=== PATIENT | male | born 1935 | race Caucasian/White ===

== ENCOUNTER 2019-11-10 12:39 | Outpatient (CLI) | payer MEDICARE, SELFPAY ==
--- NOTE | 2019-11-10 | ECHO_ITS ---
Patient Info Name: Esdras Gu Age: 84 years : 1935 Gender: Male Ht: 74 in Wt: 170 lbs BSA: 2.00 m2 HR: 63 bpm BP: 157 / 76 mmHg Technical Quality: Fair Exam Date: 11/10/2019 1:15 PM Exam Location: [facility] Patient Status: Outpatient Admit Date: 11/10/2019 Staff Ordering Physician: Dave Tinajero MD Hospital Security Officer: Marine Ly RDCS Attending Provider: Dave Tinajero MD Referring Physician: Lior GAMING; Exam Type: CA echo doppler color flow Study Info Indications R01.1 - Cardiac murmur, unspecified Complete two-dimensional, color flow and Doppler transthoracic echocardiogram is performed. Summary 1. Left ventricular chamber dimension is normal. 2. Left ventricular systolic function is normal, estimated at 60-65%. 3. There is mildly increased left ventricular wall thickness. 4. The left ventricular diastolic function is grade I diastolic dysfunction. 5. E/e' 10 is mildly elevated. 6. Left atrial chamber dimension is mildly enlarged. 7. Right atrial chamber dimension is mildly enlarged. 8. There is moderate aortic valve sclerosis. 9. There is mild aortic valve regurgitation. 10. The mitral valve has moderately calcified annulus and mild posterior prolapse. 11. There is mild mitral valve regurgitation. 12. There is mild to moderate tricuspid valve regurgitation. 13. No pulmonary hypertension, estimated pulmonary arterial systolic pressure is 33 mmHg. 14. There is trace pulmonic regurgitation. Left Ventricle E/e' 10 is mildly elevated. Left ventricular chamber dimension is normal. Left ventricular systolic function is normal, estimated at 60-65%. There is mildly increased left ventricular wall thickness. The left ventricular diastolic function is grade I diastolic dysfunction. Right Ventricle Right ventricular chamber dimension is normal. Right ventricular systolic function is normal. Left Atria Left atrial chamber dimension is mildly enlarged. Right Atria Right atrial chamber dimension is mildly enlarged. Aortic Valve The aortic valve is trileaflet. There is moderate aortic valve sclerosis. There is no aortic valve stenosis. There is mild aortic valve regurgitation. Pulmonic Valve There is trace pulmonic regurgitation. Mitral Valve The mitral valve has moderately calcified annulus and mild posterior prolapse. There is no mitral valve stenosis. There is mild mitral valve regurgitation. Tricuspid Valve There is mild to moderate tricuspid valve regurgitation. No pulmonary hypertension, estimated pulmonary arterial systolic pressure is 33 mmHg. Pericardium/Pleural There is no pericardial effusion. Inferior Vena Cava Normal inferior vena cava with >50% collapse upon inspiration consistent with normal right atrial pressure, 5 mmHg. Aorta The aortic root size at the sinus of Valsalva is normal. Left Ventricular Outflow Tract Name Value Normal LVOT 2D LVOT Diameter 2.1 cm LVOT Doppler LVOT Peak Gradient 3 mmHg LVOT Mean Gradient 2 mmHg LVOT VTI 21 cm
== END 2019-11-10 12:40 | disposition home or self-care (01) ==
PROVIDERS: PCP Family Medicine; Visit Provider Family Medicine
DX: R01.1 Cardiac murmur, unspecified (principal); I51.7 Cardiomegaly
CPT/HCPCS: 93306

== ENCOUNTER 2021-04-23 14:45 | Observation (INO) | payer MEDICARE, SELFPAY ==
[2021-04-23] VITALS (17 sets, daily range): BP systolic 74–164; BP diastolic 35–87; PULSE 52–83; RESP 14–21; TEMP 36.6–36.8; O2SAT 93–99; BMI 24.7
--- NOTE | ~2021-04-23 | XR_ITS ---
EXAMINATION: XR foot RT 2V INDICATION: Nonhealing wound of the distal first metatarsal TECHNIQUE: Two views of the right foot are obtained. COMPARISON: None available FINDINGS: There is soft tissue swelling of the first toe. There is diffuse osteopenia. There appears to be a plantar soft tissue ulceration near the distal metatarsals on the lateral view. No definite u nderlying osseous abnormality is identified although there is limited by osteopenia. 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 IMPRESSION: 1. Soft tissue swelling of the first toe. Sensitivity for underlying osseous abnormality is limited b y diffuse osteopenia. Reviewed, dictated and finalized at location A. IMPRESSION: 1. Soft tissue swelling of the first toe. Sensitivity for underlying osseous ab normality is limited by diffuse osteopenia.
--- NOTE | ~2021-04-23 | XR_ITS ---
EXAMINATION: XR chest 1V portable INDICATION: Transient alteration of awareness TECHNIQUE: Portable AP chest at 1536 hours COMPARISON: 10/15/2010 FINDINGS: The lungs are free of acute opacities. There is no pleural effusion or pneumothorax. The ca rdiomediastinal silhouette is normal. There is mild osteoarthritis of the shoulders. IMPRESSION: 1. No acute cardiopulmonary abnormality. Reviewed, dictated and finalized at location A.
--- NOTE | ~2021-04-23 | US_ITS ---
EXAMINATION: US carotid duplex BI DATE: 04/24/2021 11:42 INDICATION: Syncope. Carotid bruit. TECHNIQUE: Grayscale, color Doppler, and pulsed Doppler images of the cervical carotid arteries were obtained. The degree of vessel stenosis is placed in one of the following categories: normal, <50%, 5 0-69%, >=70% but less than near-occlusion, near-occlusion, or total occlusion. Note that percent sten osis relative to normal distal artery lumen diameter is indirectly measured from velocity measurement s as described by Gilberto, et al. Radiology 2003; 229:340-346. Notes: Normal: Peak systolic velocity <125 centimeters/sec and no plaque <50%. Peak systolic velocity <125 ( EDV <40; ICA/CCA PSV ratio <2.0; used these factors only a tandem lesions or low cardiac output or co ntralateral disease) 50-69 %: PSV 125-230 (EDV 40-100; ratio 2-4) >= 70% but less than near occlusion: PSV greater than 230 (EDV > 100; ratio> 4.0) Near Occlusion: PSV that is variable; markedly narrowed lumen Occlusion: Absent flow on color/spectral Doppler and no lumen on weber scale. COMPARISON: None. FINDINGS: RIGHT: The right common carotid artery (CCA) peak systolic velocity (PSV) is 36 cm/s. The right internal car otid artery (ICA) PSV is 236 cm/s. The right ICA end-diastolic velocity (EDV) is 29 cm/s. The right I CA/CCA PSV ratio is 6.5. The external carotid artery (ECA) PSV is 35 cm/s. There is antegrade flow in the right vertebral artery. LEFT: The left CCA PSV is 88 cm/s. The left ICA PSV is 164 cm/s. The left ICA EDV is 19 cm/s. The left ICA/ CCA PSV ratio is 1.9. The ECA PSV is 145 cm/s. There is antegrade flow in the left vertebral artery. IMPRESSION: 1. Greater than or equal to 70% stenosis in the right internal carotid artery by sonographic criteria . 2. 50-69% stenosis in the left internal carotid artery by sonographic criteria. Reviewed, dictated and finalized at location B. IMPRESSION: 1. Greater than or equal to 70% stenosis in the right internal carotid artery b y sonographic criteria. 2. 50-69% stenosis in the left internal carotid artery by sonographic criteria.
--- NOTE | 2021-04-23 14:48 | ECG_ITS ---
Measurements Intervals [place] Rate: 64 P: 25 TX: 216 QRS: 47 QRSD: 97 T: 28 QT: 413 QTc: 428 Interpretive Statements SINUS OR ECTOPIC ATRIAL RHYTHM EARLY PRECORDIAL R/S TRANSITION BORDERLINE ST ABNORMALITY- ANTEROLATERAL LEADS BORDERLINE ECG Electronically Signed On 04-23-2021 19:56:23 CDT by Fidel Muhammad D.O.
[2021-04-23 15:18] LABS: Basophils Absolute Auto 0.1 K/mm3 (0.0-0.1); Basophils Percent Auto 0.7 % (0.2-1.2); Eosinophils Absolute Auto 0.1 K/mm3 (0-0.3); Eosinophils Percent Auto 0.9 % (0-4.4); Hematocrit 41.6 % (42.0-52.0); Hemoglobin 14.3 g/dL (14.0-18.0); Immature Granulocyte Absolute 0.03 K/mm3 (0.00-0.031); Immature Granulocyte Percent A 0.4 % (0-0.5); Lymphocytes Absolute Auto 1.92 K/mm3 (0.9-3.2); Lymphocytes Percent Auto 27.4 % (18.3-44.2); Mean Corpuscular HGB Conc 34.4 g/dl (32-36); Mean Corpuscular Hemoglobin 34.1 pg (26-34); Mean Corpuscular Volume 99.3 fl (80-100); Mean Platelet Volume 10.3 fl (7.4-10.4); Monocytes Absolute Auto 0.5 K/mm3 (0.1-0.6); Monocytes Percent Auto 7.6 % (2.6-8.5); Neutrophils Absolute Auto 4.4 K/mm3 (1.3-6.7); Platelet Count Result 180 k/mm3 (150-375); Red Blood Count 4.19 M/mm3 (4.6-6.20); Red Cell Distribution Width 12.6 % (11.5-14.5)
[2021-04-23] MEDS: SODIUM CHLORIDE 0.9% IV 1,000 ML 999 ML IV CONT (15:20)
[2021-04-23 15:28] LABS: Anion Gap 13 mmol/L (8-16); Blood Urea Nitrogen 31 mg/dL (9-20); Calcium 9.8 mg/dL (8.4-10.2); Carbon Dioxide 18 mmol/L (22-30); Chloride 109 mmol/L (98-107); Estimated CRCL calculation 43 ml/min; Estimated Glomerular Filt Rate 57; Glucose 147 mg/dL (65-110); Potassium 4.6 mmol/L (3.4-5.0); Sodium 140 mmol/L (137-145)
[2021-04-23 16:00] LABS: Ethanol < 10 mg/dL (<10)
--- NOTE | 2021-04-23 16:09 | PC.NURSE ---
Pt states that he went shopping and started to feel like he was going to pass out, he states that he was able to sit down before he passed out, pt states that he feels like he will pass out often but it usually resolves after sitting for 10-15 mins,pt also presents with dequan size old wound on top of right foot, A&Ox4, denies pain at this time
[2021-04-23 16:10] LABS: Add Urine Microscopic? YES; Appearance Urine Cloudy (Clear); Bacteria Urine Trace /hpf; Bilirubin Urine Negative (Negative); Blood Urine Negative (Negative); Color Urine Yellow (Yellow); Glucose Urine UA Negative (Negative); Ketones Urine Negative (Negative); Leukocyte Esterase Ur Negative LEU/UL (Negative); Mucus Urine Few /lpf; Nitrate Urine Negative (Negative); Protein Urine 1+ mg/dL (Negative); Specific Grav Ur 1.021 (1.001-1.035); Squamous Epithelial Cell Urine Rare /hpf (Few); WBC Urine 0-3 /hpf
[2021-04-23 16:19] LABS: INR 1.1; Prothrombin Time 14.2 Seconds (11.1-14.7)
[2021-04-23 16:20] LABS: Partial Thromboplastin Time 25.6 SECONDS (22.3-36.8)
[2021-04-23 16:20] LABS: Alanine Aminotransferase 18 U/L (4-50); Albumin Level 4.1 g/dL (3.5-5.1); Alkaline Phosphatase 58 U/L (38-126); Aspartate Amino Transferase 26 U/L (17-59); Bilirubin,Total 0.9 mg/dL (0.2-1.3); Lipase 117 U/L (23-300)
[2021-04-23 16:26] LABS: Amphetamine Screen Urine Negative (Negative); Barbiturate Screen Urine Negative (Negative); Benzodiazepines Screen Urine Negative (Negative); Cannabinoid Screen Urine Negative (Negative); Cocaine Screen Urine Negative (Negative); Methadone Screen Urine Negative (Negative); Opiate Screen Urine Negative (Negative); Phencyclidine Screen Urine Negative (Negative)
[2021-04-23 16:32] LABS: Troponin I < 0.012 ng/mL (0.000-0.034)
--- NOTE | 2021-04-23 18:00 | ED.GENADULT ---
HPI - General Adult General Chief complaint: Syncope <SUNNY Alvarez Last Filed: 04/23/21 18:06> Stated complaint: syncope <SUNNY Alvarez Last Filed: 04/23/21 18:06> Time Seen by Provider: 04/23/21 15:18 <SUNNY Alvarez Last Filed: 04/23/21 18:06> Source: patient, family, RN notes reviewed and old records reviewed <SUNNY Alvarez Last Filed: 04/23/21 18:06> Mode of arrival: ambulatory <SUNNY Alvarez Last Filed: 04/23/21 18:06> Limitations: no limitations <SUNNY Alvarez Last Filed: 04/23/21 18:06> History of Present Illness HPI narrative: Patient is an 86-year-old male who presents status post syncope patient was out in the backyard working when he sustained syncope he notes he has had near syncope with exertion patient has not been seen for this complaint on arrival to emergency department he is nondistressed resting comfortably he felt very weak initially but denied any recent illness or injuries or trauma related to the syncope presents with family who he lives with <SUNNY Alvarez Last Filed: 04/23/21 18:06> Related Data Home medications: Home Medications Medication Instructions Recorded Confirmed aspirin 325 mg PO DAILY 04/23/21 04/23/21 lisinopril 20 mg PO HS 04/23/21 04/23/21 metoprolol tartrate 12.5 mg PO Q12H 04/23/21 04/23/21 rosuvastatin 20 mg PO HS 04/23/21 04/23/21 <SUNNY Alvarez Last Filed: 04/23/21 18:06> Allergies/adverse reactions: Allergies Allergy/AdvReac Type Severity Reaction Status Date / Time No Known Allergies Allergy Mild Unverified 12/16/04 13:20 <SUNNY Alvarez Last Filed: 04/23/21 18:06> Review of Systems Review of Systems: All systems reviewed & are unremarkable except as noted in HPI and below <SUNNY Alvarez Last Filed: 04/23/21 18:06> [facility] Past Medical History Medical History: Medical History (Updated 04/24/21 @ 17:28 by Aubree Carrasco MD) Atherosclerosis of both carotid arteries Carotid artery disease Coronary artery disease 2 CO and 2 stents placed about [address] Vee at [facility] Hyperlipidemia Hypertension Nonrheumatic mitral valve regurgitation Skin cancer, basal cell <Jf Boss PA-C - Last Filed: 04/23/21 18:06> Surgical History Surgical History: Surgical History (Updated 04/23/21 @ 23:57 by Dori Oakley PA-C) History of basal cell carcinoma excision History of bilateral hip replacements Left: May 2001. Right: July 2001. History of heart artery stent X2 History of orthopedic surgery Right foot reconstruction around 1969. <Jf Boss PA-C - Last Filed: 04/23/21 18:06> Family History Family History: Family History Other Heart disease Hypertension <Jf Boss PA-C - Last Filed: 04/23/21 18:06> Social History Social History: Social History (Updated 04/24/21 @ 17:18 by Aubree Carrasco MD) Social History: Surrogate decision maker: Janeth Christianson, daughter. Code status: Full code. 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 Smoking packs per day: 5 Smoking cigarettes per day: 100.0 Years smoked: 15 Smoking pack-years: 75.00 Smoking status: Former smoker Tobacco type: cigarettes Additional smoking assessment comments: Quit smoking at age 26. Alcohol intake: never Substance use: never Additional living arrangements comments: The patient lives with his daughter and son-in-law in [place]. Occupation/Education: retired <Jf Boss PA-C - Last Filed: 04/23/21 18:06> Exam Narrative: GENERAL: Well-appearing, well-nourished, and in no acute distress. HEAD: Normocephalic, atraumatic. EYES: PERRLA and EOMI. ENT: Nares clear, no rhinorrhea or epistaxis. Mucous membranes moist. NECK: Supple. No adenopathy or
[2021-04-23 18:34] LABS: Troponin I < 0.012 ng/mL (0.000-0.034)
--- NOTE | 2021-04-23 19:30 | PM.IMHP ---
H&P: HPI History of Present Illness Date/Time: 04/23/21 19:30 Chief Complaint: Syncope. Narrative: This is a very pleasant 86-year-old male with coronary artery disease and history of stents, hypertension, and hyperlipidemia presented to the emergency department earlier today via private vehicle for evaluation after a syncopal episode. The patient is quite active and he was helping his daughter and son-in-law take out a tree and chop wood earlier today. He estimates that he was working for a couple of hours before he began feeling lightheaded and dizzy. He went to sit down at which time his vision became blurry and he lost consciousness briefly at that time. After a few minutes he was feeling okay however his family members thought it would be best for him to come in for evaluation. At the time my evaluation he reports feeling just fine and he has no specific complaints. He does admit that similar symptoms have happened in the past with exertion, and he typically goes to sit in his truck to cool off for 5 to 10 minutes and his symptoms resolve. On arrival to the emergency department his blood pressure was 74/35 but it has improved nicely with IV fluid rehydration. He denies exertional chest pain, pleuritic pain, palpitations, and shortness of breath. He has not had any near syncopal or syncopal episodes at any other times aside from when exerting himself. He has not had any recent weight changes or any changes to his medications. He has been eating and drinking as per usual. Review of Systems Review of Systems: Twelve systems were reviewed. Patient previously told of mild carotid artery disease several years ago, no follow-up since that time. Denies claudication. No fever, chills, or sweats. He denies recent cold and flu symptoms. No nausea, vomiting, or diarrhea. No dysuria. The patient does report mild neuropathy like symptoms in his fingers and toes for several years. Several weeks ago he hit his right forefoot with an axe and developed a wound there which did drain for a couple of days but is improving. No redness warmth or swelling at the site. Except as documented, all other systems were reviewed and are negative. [facility] Past Medical History Medical History (Updated 04/24/21 @ 00:04 by Dori Oakley PA-C) Carotid artery disease Coronary artery disease Hyperlipidemia Hypertension Skin cancer, basal cell Surgical History Surgical History (Updated 04/23/21 @ 23:57 by Dori Oakley PA-C) History of basal cell carcinoma excision History of bilateral hip replacements Left: May 2001. Right: July 2001. History of heart artery stent X2 History of orthopedic surgery Right foot reconstruction around 1969. Family History Family History (Updated 04/23/21 @ 23:59 by Dori Oakley PA-C) Other Heart disease Hypertension Social History Social History (Updated 04/24/21 @ 00:00 by Dori Oakley PA-C) Social History: Surrogate decision maker: Janeth Christianson, daughter. Code status: Full code. Smoking packs per day: 5 Smoking cigarettes per day: 100.0 Years smoked: 15 Smoking pack-years: 75.00 Smoking status: Former smoker Tobacco type: cigarettes Additional smoking assessment comments: Quit smoking at age 26. Alcohol intake: never Substance use: never Additional living arrangements comments: The patient lives with his daughter and son-in-law in [place]. Occupation/Education: retired [employer] Home Medications and Allergies Home Medications Medication Instructions Recorded Confirmed Type aspirin 325 mg PO DAILY 04/23/21 04/23/21 History lisinopril 20 mg PO HS 04/23/21 04/23/21 History metoprolol tartrate 12.5 mg PO Q12H 04/23/21 04/23/21 History rosuvastatin 20 mg PO HS 04/23/21 04/23/21 History Allergies Allergy/AdvReac Type Severity Reaction Status Date / Time No Known Allergies Allergy Mild Unverified 12/16/04 13:20 Vital Signs Vital Signs - 24 hr 04/23/21 1
--- NOTE | 2021-04-23 20:12 | PC.NURSE ---
Report called at 1943. RN on floor took report but stated the room is being cleaned. Called again at 2010 and the floor states the room is still being cleaned.
--- NOTE | 2021-04-23 20:56 | ADMGEN ---
This patient, Esdras Gu, was admitted to Medical Room 256-. Patient/family oriented to hospital policies and general routines including ID bracelet, bed and alarms, visiting hours, pain management, procedures, bathroom and other care routines, personal items, smoking policy, room service/diet, and visiting hours. Information on how to activate the Rapid Response Team has been discussed. Patient/Family are encouraged to report perceived risks to care and to ask questions if they do not understand what they are told or what they should do.
[2021-04-23 21:44] LABS: Troponin I < 0.012 ng/mL (0.000-0.034)
[2021-04-23] MEDS: LACTATED RINGERS 1,000 ML 75 ML IV CONT (21:55)
[2021-04-23] MEDS: FAMOTIDINE 20 MG/2 ML VIAL IV PUSH (22:52)
[2021-04-24] VITALS (17 sets, daily range): BP systolic 130–171; BP diastolic 47–72; PULSE 48–70; RESP 16–18; TEMP 36.5–36.8; O2SAT 96–97
--- NOTE | 2021-04-24 00:07 | ECHO_ITS ---
Patient Info Name: Esdras Gu Age: 86 years : 1935 Gender: Male Ht: 72 in Wt: 182 lbs BSA: 2.05 m2 HR: 68 bpm BP: 146 / 60 mmHg Technical Quality: Fair Exam Date: 04/24/2021 10:06 AM Exam Location: [facility] Pulmonary Exam Room: 256 Patient Status: Inpatient Admit Date: 04/23/2021 Staff Ordering Physician: Dori Oakley PA-C Sales Enablement Consultant: Marine Ly RDCS Attending Provider: Catalina Layne MD Referring Physician: Cele BELTRE; Exam Type: CA echo doppler color flow Study Info Indications - exertional syncope cad Complete two-dimensional, color flow and Doppler transthoracic echocardiogram is performed. Summary 1. Complete two-dimensional, color flow and Doppler transthoracic echocardiogram is performed. 2. Left ventricular systolic function is normal, estimated at 60-65%. 3. The left ventricular diastolic function is grade II diastolic dysfunction. 4. There is mild aortic valve calcification. 5. There is mild aortic valve regurgitation. 6. There is no aortic valve stenosis. 7. There is mild mitral valve regurgitation. Mild anterior mitral leaflet prolapse. 8. The mitral valve annulus is mildly calcified. 9. There is mild tricuspid valve regurgitation. 10. No pulmonary hypertension, estimated pulmonary arterial systolic pressure is 28 mmHg. Left Ventricle Left ventricular chamber dimension is normal. Left ventricular systolic function is normal, estimated at 60-65%. There is no increased left ventricular wall thickness. Left ventricular septal wall motion is normal. The left ventricular diastolic function is grade II diastolic dysfunction. Right Ventricle Right ventricular chamber dimension is normal. Right ventricular systolic function is normal. Left Atria Left atrial chamber dimension is normal. Right Atria Right atrial chamber dimension is normal. Atrial Septum Intact interatrial septum visualized by color flow imaging. Aortic Valve The aortic valve is trileaflet. There is no aortic valve sclerosis. There is no aortic valve stenosis. There is mild aortic valve regurgitation. There is mild aortic valve calcification. Pulmonic Valve The pulmonic valve is normal. There is no pulmonic valve stenosis. There is no pulmonic regurgitation. Mitral Valve The mitral valve has anterior prolapse. There is no mitral valve stenosis. There is mild mitral valve regurgitation. Mild anterior mitral leaflet prolapse. The mitral valve annulus is mildly calcified. Tricuspid Valve The tricuspid valve leaflets are normal. There is no significant tricuspid valve stenosis. There is mild tricuspid valve regurgitation. No pulmonary hypertension, estimated pulmonary arterial systolic pressure is 28 mmHg. Pericardium/Pleural The pericardium appears normal. There is no pericardial effusion. Inferior Vena Cava Normal inferior vena cava with >50% collapse upon inspiration consistent with normal right atrial pressure, 5 mmHg. Aorta The aortic root size at the sinus of Valsalva is normal. The prox ascending aorta size is normal. Left Ventricular Outflow Tract Name Value Normal LVOT 2D LVOT Diameter 2.1 cm
[2021-04-24 05:38] LABS: Basophils Percent Auto 0.5 % (0.2-1.2); Eosinophils Absolute Auto 0.1 K/mm3 (0-0.3); Eosinophils Percent Auto 1.4 % (0-4.4); Hemoglobin 12.7 g/dL (14.0-18.0); Immature Granulocyte Absolute 0.02 K/mm3 (0.00-0.031); Immature Granulocyte Percent A 0.3 % (0-0.5); Immature Platelet Fraction Pct 3.9 % (0.9-11.2); Lymphocytes Percent Auto 31.3 % (18.3-44.2); Mean Corpuscular HGB Conc 33.4 g/dl (32-36); Mean Corpuscular Volume 101.9 fl (80-100); Monocytes Absolute Auto 0.7 K/mm3 (0.1-0.6); Monocytes Percent Auto 10.6 % (2.6-8.5); Neutrophils Absolute Auto 3.6 K/mm3 (1.3-6.7); Neutrophils Percent Auto 55.9 % (45.5-73.1); Platelet Count Result 161 k/mm3 (150-375); Red Blood Count 3.73 M/mm3 (4.6-6.20); Red Cell Distribution Width 12.4 % (11.5-14.5); White Blood Count 6.4 K/mm3 (4.5-10.0)
[2021-04-24 05:47] LABS: Anion Gap 5 mmol/L (8-16); Blood Urea Nitrogen 24 mg/dL (9-20); Carbon Dioxide 27 mmol/L (22-30); Chloride 110 mmol/L (98-107); Estimated CRCL calculation 51 ml/min; Estimated Glomerular Filt Rate > 60; Glucose 98 mg/dL (65-110); Potassium 4.4 mmol/L (3.4-5.0); Sodium 142 mmol/L (137-145)
[2021-04-24] MEDS: SILVERGEL (ELTA) 45 ML 1 APPLIC TOPICAL (09:40)
[2021-04-24] MEDS: METOPROLOL TARTRATE 12.5 MG TABLET PO ×2 (09:41→20:43)
[2021-04-24] MEDS: ASPIRIN 325 MG TABLET PO (09:41)
--- NOTE | 2021-04-24 11:18 | ECG_ITS ---
Measurements Intervals [place] Rate: 52 P: MD: 0 QRS: 36 QRSD: 95 T: 35 QT: 437 QTc: 408 Interpretive Statements SINUS OR ECTOPIC ATRIAL BRADYCARDIA WITH SINUS ARRHYTHMIA WITH FIRST DEGREE AV BLOCK EARLY PRECORDIAL R/S TRANSITION BASELINE WANDER- I, II, V4-V6 ABNORMAL ECG Electronically Signed On 04-24-2021 13:05:00 CDT by Fidel Muhammad D.O.
--- NOTE | 2021-04-24 14:42 | PM.IMPN ---
Progress Note: A&P Assessment and Plan (1) Syncope: Code(s): R55 - Syncope and collapse Status: Acute (2) Hypotension: Code(s): I95.9 - Hypotension, unspecified Status: Acute (3) Wound of right foot: Code(s): S91.301A - Unspecified open wound, right foot, initial encounter Status: Acute (4) Hypertension: Code(s): I10 - Essential (primary) hypertension Status: Acute (5) Hyperlipidemia: Code(s): E78.5 - Hyperlipidemia, unspecified Status: Acute (6) Coronary artery disease: Code(s): I25.10 - Atherosclerotic heart disease of [place] coronary artery without angina pectoris Status: Acute (7) Carotid artery disease: Code(s): I77.9 - Disorder of arteries and arterioles, unspecified Status: Inactive Additional Plan 04/23/21: The patient presented today after having a syncopal episode, found to be hypotensive on arrival. He may very well have been dehydrated from working outside for several hours though I am more concerned with his reported history of frequent near syncopal episodes with exertion. His blood pressures improved with just 1 L of IV fluids in the emergency department. He will be monitor on telemetry overnight to rule out cardiac dysrhythmia. Echocardiogram and carotid Doppler ultrasounds have been ordered for further evaluation. Orthostatic vital signs will be monitored Q shift. His antihypertensives will be reviewed and resumed as appropriate, with parameters. I will ask the wound nurse to see him in consultation for the right mid forefoot ulceration. 04/24/21: He was noticed to have atrial fibrillation on telemetry which was confirmed by a 12 lead EKG. Cardiology consult has been requested for the inputs. Echocardiogram showed ejection fraction of 60-65% with grade 2 diastolic dysfunction. No significant valvular stenosis noticed. Carotid Doppler showed greater than or equal to 70% stenosis in the right internal carotid artery. 50-69% stenosis in the left internal carotid artery. Continue aspirin and Crestor. Orthostatic vitals were repeated today and were negative. Metoprolol was resumed. Continue lisinopril if blood pressure requires it to be resumed. IV fluids have been stopped. Wound care consult has been obtained and their recommendations appreciated. It does not seem that his wound is infected. Possible discharge in the a.m. after cardiology evaluation. Subjective Date/time seen: 04/24/21 14:42 Wound care nurse evaluated the patient and put the recommendation. It does not look to be infected. Blood pressure readings are borderline elevated with systolic blood pressure in 140s and 150s. Currently lisinopril and metoprolol is on hold. He is feeling better and denied have any significant symptoms. He was noticed to have atrial fibrillation on telemetry which was confirmed by a 12 lead EKG. Cardiology consult has been requested. He was resuscitated with IV fluids with improvement in his blood pressure. Review of Systems Review of Systems: All systems reviewed & are unremarkable except as noted in HPI and below Exam Narrative: General: Awake and alert Respiratory: Lungs are clear to auscultation bilaterally. Cardiovascular: Regular rate and rhythm with S1-S2. Gastrointestinal: Abdomen is soft, nontender, and nondistended Skin: Warm and dry. There is approximately dime shaped, ulcerated wound on the right medial forefoot with red granular wound bed. No erythema, edema, warmth, or tenderness. Neurological: Awake and alert Psychiatric: Pleasant and cooperative with normal mood and affect. Objective Data Vital Signs Vital Signs: Vital Signs - 24 hr 04/23/21 14:52 04/23/21 15:49 04/23/21 16:00 Temperature 36.6 C Pulse Rate 72 64 64 Respiratory Rate 16 19 16 Blood Pressure 74/35 L Pulse Oximetry 98 95 04/23/21 16:02 04/23/21 16:15 04/23/21 16:16 Temperature Pulse Rate 63 62 63 Respiratory Rate 1
--- NOTE | 2021-04-24 16:44 | PM.CNCAR ---
Assessment and Plan Assessment and plan (1) Sinus arrhythmia: Code(s): I49.8 - Other specified cardiac arrhythmias Status: Acute Assessment and Plan: Telemetry was personally reviewed. Episodes of atrial fibrillation I believe are actual sinus arrhythmia. He has a first-degree AV block with very low voltage P waves which are hard to see especially if there is any artifact on the tracing. EKG is also reviewed, appear to have very low voltage P waves and I do not see actual atrial fibrillation. No further evaluation recommended. Okay for discharge today. (2) First degree AV block: Code(s): I44.0 - Atrioventricular block, first degree Status: Acute Assessment and Plan: First-degree AV block, APCs, and brief pauses on telemetry monitoring. (3) Syncope: Code(s): R55 - Syncope and collapse Status: Acute Assessment and Plan: Long history of exertional lightheadedness, admitted with syncope, with a documented blood pressure of 74 on admission. Suspect that he was dehydrated and vasodilated, needs to increase fluid intake and rest more frequently with activity. Cannot exclude an ischemic cause, such as exercise-induced bradycardia ( ventricular arrhythmia less likely) or ischemia leading to poor cardiac output and resultant low BP. However troponins were negative and his EKG did not show any ischemic changes. Consider OPT stress test. (4) Coronary artery disease: Code(s): I25.10 - Atherosclerotic heart disease of [place] coronary artery without angina pectoris Status: Acute Assessment and Plan: Remote history of mi and stents. Taking aspirin and statin (5) Nonrheumatic mitral valve regurgitation: Code(s): I34.0 - Nonrheumatic mitral (valve) insufficiency Status: Acute Assessment and Plan: sounds like a mitral regurgitant murmur. No recent echos in EMR. Consider outpatient echo. (6) Atherosclerosis of both carotid arteries: Code(s): I65.23 - Occlusion and stenosis of bilateral carotid arteries Status: Acute Assessment and Plan: Bilateral carotid disease, continue aspirin statin. Consider further evaluation with a CTA. History of Present Illness History of Present Illness Consult date/time: 04/24/21 16:44 Consult reason: atrial fibrillation Reason For Visit: syncope Narrative: Esdras Gu is an 86-year-old male whom we were asked to see at the request of the hospitalist for our advice and opinion regarding his new onset of atrial fibrillation, in consultation. 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 He has been splitting wood over the past couple months and has had no problems with any chest discomfort or shortness of breath. All his life, however, when he over exerts he gets lightheaded and dizzy and needs to sit down to rest. Sometimes when he was younger he crumpled to the ground but he has learned to sit and rest. He has never had actual syncope before. however, he had to walk a long ways to get to where he could sit On some steps,and then apparently he was dizzy and had a syncopal episode. In the ER his blood pressure was 74/35. He was thought to be of mildly dehydrated (BUN was 31, now 24 ). He was incidentally found to have possible atrial fibrillation today. No history of any arrhythmias. He does have a history of a heart attack and [address] Vee at [facility] about 15 years ago. His had stress tests in the past with no abnormalities and has a history of a heart murmur from a leaky valve. Review of Systems Constitutional: Constitutional: Denies lethargy Eyes: Eyes: Reports no additional eye complaints ENT: Denies epistaxis Cardiovascular: Cardiovascular: Denies diaphoresis, Denies leg edema, Reports lightheadedness and Denies palpitations Respiratory: Respirat
[2021-04-24] MEDS: ROSUVASTATIN 10 MG TABLET 20 MG PO (20:43)
[2021-04-25] VITALS: PULSE 55
[2021-04-25 00:30] VITALS: BP 127/55; PULSE 96; RESP 14; TEMP 36.4; O2SAT 96
[2021-04-25 04:00] VITALS: PULSE 55
[2021-04-25 05:48] LABS: Magnesium 1.9 mg/dL (1.6-2.3)
[2021-04-25 05:55] VITALS: BP 114/84; PULSE 55; RESP 16; TEMP 36.5; O2SAT 98
--- NOTE | 2021-04-25 07:53 | PM.DS ---
DS: Admitting Diagnosis Discharge Date 04/25/21 Admitting Diagnosis Syncope hypotension dehydration chronic wound of the right foot hypertension hyperlipidemia CAD carotid artery stenosis DS: Discharge Diagnosis Discharge Diagnosis (1) Syncope: Code(s): R55 - Syncope and collapse Status: Acute Assessment and Plan: likely secondary to dehydration and transient hypotension associated with it. He was hydrated with IV fluids with improvement in his symptoms. He was initially orthostatic hypotensive but that has resolved now with IV fluid resuscitation. (2) Hypotension: Code(s): I95.9 - Hypotension, unspecified Status: Acute Assessment and Plan: Resolved with IV fluid resuscitation. (3) Wound of right foot: Code(s): S91.301A - Unspecified open wound, right foot, initial encounter Status: Acute Assessment and Plan: He was seen by wound care nurse and provided local care. It does not seem to be infected. (4) Hypertension: Code(s): I10 - Essential (primary) hypertension Status: Acute Assessment and Plan: He was continued on his metoprolol. His lisinopril was put on hold but multiple blood pressure readings were found to be elevated and he is being restarted back on lisinopril at the time of discharge. (5) Hyperlipidemia: Code(s): E78.5 - Hyperlipidemia, unspecified Status: Acute Assessment and Plan: Continue rosuvastatin. (6) Coronary artery disease: Code(s): I25.10 - Atherosclerotic heart disease of [place] coronary artery without angina pectoris Status: Acute Assessment and Plan: Continue metoprolol, lisinopril, aspirin and Crestor Echo was performed which showed ejection fraction of 60-65%. He has grade 2 diastolic dysfunction. Mild aortic valve and mitral valve regurgitation seen. He was seen by cardiology service for the concern for possible atrial fibrillation which was suspected on telemetry as well as 12 lead EKG. He does not seem to have atrial fibrillation and has first-degree AV block with very low voltage P-waves. Telemetry showed first-degree AV block, APCs and brief pauses. He will probably need to have an outpatient stress test. He was encouraged to see his primary care physician and suppression crew leader as an outpatient to arrange an outpatient stress test. (7) Carotid artery disease: Code(s): I77.9 - Disorder of arteries and arterioles, unspecified Status: Inactive Assessment and Plan: Carotid Doppler was performed which showed greater than or equal to 70% stenosis in the right internal carotid artery. 50-69% stenosis in the left internal carotid artery seen as well. He will need outpatient evaluation by vascular surgeon. I encouraged him to get the referral from his primary care physician when he see him next. In the meantime he will be continued on aspirin, statin and metoprolol. 04/23/21: The patient presented today after having a syncopal episode, found to be hypotensive on arrival. He may very well have been dehydrated from working outside for several hours though I am more concerned with his reported history of frequent near syncopal episodes with exertion. His blood pressures improved with just 1 L of IV fluids in the emergency department. He will be monitor on telemetry overnight to rule out cardiac dysrhythmia. Echocardiogram and carotid Doppler ultrasounds have been ordered for further evaluation. Orthostatic vital signs will be monitored Q shift. His antihypertensives will be reviewed and resumed as appropriate, with parameters. I will ask the wound nurse to see him in consultation for the right mid forefoot ulceration. 04/24/21: He was noticed to have atrial fibrillation on telemetry which was confirmed by a 12 lead EKG. Cardiology consult has been requested for the inputs. Echocardiogram showed ejection fraction of 60
[2021-04-25 08:00] VITALS: PULSE 65
[2021-04-25 09:35] VITALS: PULSE 75
[2021-04-25] MEDS: METOPROLOL TARTRATE 12.5 MG TABLET PO (09:35)
[2021-04-25] MEDS: ASPIRIN 325 MG TABLET PO (09:36)
[2021-04-25] MEDS: SILVERGEL (ELTA) 45 ML 1 APPLIC TOPICAL (09:36)
[2021-04-25 13:48] LABS: Free T4 Free Thyroxine Reflex 0.85 ng/dL (0.78-2.19)
[2021-04-26 08:51] LABS: Total Triiodothyronine (T3) 1.26 NG/ML (0.97-1.69)
== END 2021-04-25 10:25 | disposition home or self-care (01) ==
LOC: ANHED 18:06 → ANH2MED 22:10 → ANH3MEDSUR 04-29 13:39
PROVIDERS: Emergency Medicine; Emergency Medicine Emergency Medical Services; Physician Assistant; Admitting Provider Internal Medicine; Emergency Provider General Practice; PCP Family Medicine; Visit Provider Internal Medicine Critical Care Medicine
DX: R55 Syncope and collapse (principal); S91.301D Unspecified open wound, right foot, subsequent encounter; I44.0 Atrioventricular block, first degree; I34.0 Nonrheumatic mitral (valve) insufficiency; I65.23 Occlusion and stenosis of bilateral carotid arteries; I49.8 Other specified cardiac arrhythmias; I25.10 Atherosclerotic heart disease of native coronary artery without angina pectoris; I10 Essential (primary) hypertension; E78.5 Hyperlipidemia, unspecified; Z95.5 Presence of coronary angioplasty implant and graft; Z87.891 Personal history of nicotine dependence
CPT/HCPCS: 36415; 71045; 73620; 80048; 80076; 80307; 81001; 83690; 83735; 84439; 84443; 84480; 84484; 85025; 85055; 85610; 85730; 93005; 93306; 93880; 96361; 96365; 96366; 96374; 96375; 99285; A9270; G0378; J7030; J7120

== ENCOUNTER 2024-07-23 08:15 | Emergency (ER) | payer MEDICARE, SELFPAY ==
[2024-07-23] VITALS (35 sets, daily range): BP systolic 90–147; BP diastolic 41–79; PULSE 48–71; RESP 13–30; TEMP 36.7–36.9; O2SAT 72–100
--- NOTE | ~2024-07-23 | CT_ITS ---
CLINICAL INDICATION: Periprosthetic fracture of the left hip after a fall. COMPARISON: None. TECHNIQUE: Computed tomography (CT) of the pelvis was performed without intravenous contrast. The dos e-length product was 484.64 mGy-cm. FINDINGS/OBSERVATIONS: Gastrointestinal tract: Fecal stasis within the pelvis. Appendix: The appendix is not definitively visualized. However, no pericecal inflammatory change is i dentified suggest the presence of acute appendicitis. Vasculature: Significant inflammatory change surrounding the left common iliac vein with dilatation j ust proximal to its transition to the left external iliac vein for which a thrombus is suspected. Densely calcified atherosclerotic disease is identified within the arterial system Lymph nodes: No pathologically enlarged or morphologically within the visualized retroperitoneum or p doretha. Pelvic structures:Significant fatty atrophy of the paraspinous musculature as well as the left psoas muscle and iliopsoas muscle within the pelvis. Body wall and musculoskeletal: Bilateral total hip prosthetic are detected. Comminuted fracture of the periprosthetic femur is identified extending cranially into the greater tr ochanter of the left femur. Given the streak metallic artifact, cannot completely exclude an accompanying acetabular fracture as well. IMPRESSION: Comminuted fracture of the periprosthetic left femur extending cranially into the greater trochanter. Findings within the left common iliac and left external iliac veins for which thrombus is suspected. Reviewed, dictated and finalized at location A. ONAL ENVIRONMENTAL MANAGER IMPRESSION: Comminuted fracture of the periprosthetic left femur extending cranially into t he greater trochanter. Findings within the left common iliac and left external iliac veins for which t hrombus is suspected.
--- NOTE | ~2024-07-23 | XR_ITS ---
CHEST RADIOGRAPH CLINICAL HISTORY: hip frac . COMPARISON: 04/23/2021 TECHNIQUE: Single portable view of the chest. FINDINGS The cardiomediastinal silhouette is unremarkable. The lungs are clear. Visualized osseous structures and soft tissues are unremarkable. IMPRESSION: No focal infiltrate or effusion. Reviewed, dictated and finalized at location A. CIENCY CLERK
--- NOTE | ~2024-07-23 | XR_ITS ---
HISTORY: pain LT HIPS PT FELL HX HIP REPLACEMENT COMPARISON: None TECHNIQUE: 2 views of the left hip along with an AP view of the pelvis FINDINGS: Left-sided periprosthetic fracture is identified along the femoral stem as well as within the greater trochanter. The right hip prosthetic and surrounding bone are unremarkable. Degenerative disease within the lower lumbar spine. Fecal stasis within the colon. Air within the rectum. Decreased mineralization. IMPRESSION: Acute periprosthetic fracture within the femoral component of the left hip Reviewed, dictated and finalized at location A. STANT PARALEGAL
--- NOTE | ~2024-07-23 | CT_ITS ---
History: Fall PROCEDURE: CT head without contrast. COMPARISON: None TECHNIQUE: Axial imaging of the head performed from the skull base to the vertex without IV contrast. Sagittal a nd coronal reformations obtained. DLP: 605 mGy-cm FINDINGS: The ventricles are dilated. The dilatation of the ventricles is proportional to the degree of sulcal prominence, not uncommon in the senescent brain. Decreased attenuation is identified within the periventricular white matter, likely secondary to micr ovascular ischemic disease, in a patient of this age. There is no mass, mass effect or midline shift. There is no abnormal extra-axial fluid collection or intracranial hemorrhage. Visualized paranasal sinuses are clear. The mastoid air cells are well aerated. No acute displaced fractures within the overlying cranium. Impression: No acute intracranial hemorrhage or suspicious mass effect. Reviewed, dictated and finalized at location A. MMASTER Impression: No acute intracranial hemorrhage or suspicious mass effect.
--- NOTE | 2024-07-23 08:32 | ECG_ITS ---
Test Date: 2024-07-23 09:19:55 Measurements Intervals [place] Rate: 57 P: 0 [place]: 0 QRS: 70 QRSD: 98 T: 41 QT: 434 QTc: 425 Interpretive Statements ATRIAL FIBRILLATION WITH SLOW VENTRICULAR RESPONSE NONSPECIFIC ST & T-WAVE ABNORMALITY ABNORMAL RHYTHM ECG No previous ECG available for comparison Electronically Signed On 07-23-2024 10:09:16 RADIAL DRILL OPERATOR FOR PLASTIC by Miles Pierce M.D.
--- NOTE | 2024-07-23 08:34 | ED_ITS ---
HPI - General Adult General Chief complaint: Fall Stated complaint: fall Time Seen by Provider: 07/23/24 08:16 History of Present Illness HPI narrative: 89-year-old male presents to the emergency department for evaluation for left hip pain. Patient was attempting to pull up his undergarments after using the restroom when he lost his balance and fell to his left striking the wall with his head and injuring his left hip. Patient does have history of bilateral hip replacements in 1999 and 2000. Related Data Home Medications ?Medication ?Instructions ?Recorded ?Confirmed ?Last Taken ?Type aspirin 325 mg tablet 325 mg PO DAILY 04/23/21 05/23/24 04/23/21 09:00 History vit C 250 mg-vit E 90 mg-zinc 40 1 tablet PO BID 05/18/23 05/23/24 Unknown History mg-copper 1 [id number] capsule (PreserVision AREDS-2) Allergies Allergy/AdvReac Type Severity Reaction Status Date / Time No Known Allergies Allergy Mild Verified 07/23/24 08:24 Review of Systems 2 Review of Systems: All systems reviewed & are unremarkable except as noted in HPI and below PMFSH Past Medical History Medical History Atherosclerosis of both carotid arteries Carotid artery disease Coronary artery disease 2 [place] and 2 stents placed about [address] Vee at [facility] First degree AV block Hyperlipidemia Hypertension Hypotension Nonrheumatic mitral valve regurgitation Old myocardial infarction Primary generalized (osteo)arthritis Surgical History Surgical History History of basal cell carcinoma excision History of bilateral hip replacements Left: May 2001. Right: July 2001. History of heart artery stent X2 History of orthopedic surgery Right foot reconstruction around 1969. Family History Family History Other Heart disease Hypertension Social History Social History Social History: Surrogate decision maker: Janeth Christianson, daughter. Code status: Full code. 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 Smoking packs per day: 5 Smoking cigarettes per day: 100.0 Years smoked: 15 Smoking pack-years: 75.00 Smoking status: Former smoker Tobacco type: cigarettes Additional smoking assessment comments: Quit smoking at age 26. Alcohol intake: never Substance use: never Lack of Transportation: No Lack of Food: Never True Current Housing: I Have Housing Concerned About Future Housing: No Difficulty Paying Gas/Electric Bills: No Difficulty Paying for Meds: No Currently Unemployed: No Education: High School Diploma/GED Difficulty w/ Childcare or Family Care: No Living arrangements: with family Additional living arrangements comments: The patient lives with his daughter and son-in-law in [place]. Occupation/Education: retired Gender identity (if verbalized by the patient): Male Sexual Orientation (if Verbalized by the Patient): Straight or Heterosexual Spiritual care concerns: No Exam 2 Narrative: APPEARANCE: Well appearing, no pain, no distress, well-nourished. HEAD: normocephalic, atraumatic. EYES: PERRLA/EOMI, conjunctivae clear. NOSE: Normal no drainage EARS:TMS clear with good light reflex. THROAT: Pharynx clear, no exudate. NECK: Supple. No adenopathy, no masses. RESPIRATORY: Airway patent, respirations nonlabored. Clear to auscultation bilaterally, no rales, rhonchi, wheezing. CARDIOVASCULAR: Regular rate and rhythm without murmurs rubs or gallops. ABDOMINAL: Soft, nontender, nondistended, normal bowel sounds MUSCULOSKELETAL: Decreased range of motion of left hip secondary to pain, neurovascularly intact. NEURO: Alert. Cranial nerves II through XII intact. Good gait. Good coordination SKIN: Warm, dry. Normal Color Course Vital Signs Vital signs: Vital Signs Temperature 98.1 F 07/23/24 08:16 Pulse Rate 70 07/23/24 08:16 Respiratory Rate 16 07/23/24 08:16 Blood Pressure 147/79 H 07/23/24 08:16 Pulse Oximetry 97 07/23/24 08:16 Oxygen Delivery Room Air 07/23/24 08:16 Temperature 98.5 F 07/23/24 13:01 Pulse Rate 62 07/23/24 13:01 Respiratory Rate 17 07/23/24 13:01 Blood Pressure 139/65 07/23/24 13:01 Pulse Oximetry 97 07/23/24 13:01 Oxygen Delivery Room Air 07/23/24 08:16 Medical Decision Making MDM Narrative Medical decision making narrative: 89-year-old male present to the emergency department for evaluation for head injury left hip pain. Hip x-ray did reveal a periprosthetic left femur fracture. Discussed case with orthopedics and they did not feel they were able to care for patient here. After discussion with the patient and family they preferred to go to [facility]. I discussed the case with [facility] transfer [facility]ins and patient was ultimately accepted as a trauma transfer to [facility]. Patient was well-appearing and stable at time of transfer. Patient was afebrile but does have a leukocytosis of 11.6 but a stable hemoglobin of 14.5. No acute abnormalities on the patient's CMP. Pelvis CT did confirm the comminuted periprosthetic femur fracture, head CT was negative for acute intracranial abnormality. Differential Diagnosis Differential Diagnosis: Hip fracture, pelvic fracture, subdural hematoma, subarachnoid hemorrhage, cervical spine fracture Vital Signs Vital Signs: Vital Signs Temperature 98.1 F 07/23/24 08:16 Pulse Rate 70 07/23/24 08:16 Respiratory Rate 16 07/23/24 08:16 Blood Pressure 147/79 H 07/23/24 08:16 Pulse Oximetry 97 07/23/24 08:16 Oxygen Delivery Room Air 07/23/24 08:16 Temperature 98.5 F 07/23/24 13:01 Pulse Rate 62 07/23/24 13:01 Respiratory Rate 17 07/23/24 13:01 Blood Pressure 139/65 07/23/24 13:01 Pulse Oximetry 97 07/23/24 13:01 Oxygen Delivery Room Air 07/23/24 08:16 Lab Data Lab results reviewed: Yes I reviewed the patient's lab results. 07/23/24 08:43 07/23/24 08:43 Labs: Lab Results 07/23/24 07/23/24 Range/Units 08:43 11:40 WBC 11.6 H (4.5-10.0) K/mm3 RBC 4.31 L (4.6-6.20) M/mm3 Hgb 14.5 (14.0-18.0) g/dL Hct 44.7 (42.0-52.0) % MCV 103.7 H (80-100) fl MCH 33.6 (26-34) pg MCHC 32.4 (32-36) g/dl RDW 13.5 (11.5-14.5) % Plt Count 130 L (150-375) k/mm3 MPV 11.2 H (7.4-10.4) fl Immature Gran % (Auto) 0.5 (0-0.5) % Neut % (Auto) 77.2 H (45.5-73.1) % Lymph % (Auto) 13.6 L (18.3-44.2) % Mccormick % (Auto) 7.2 (2.6-8.5) % Eos % (Auto) 1.2 (0-4.4) % Baso % (Auto) 0.3 (0.2-1.2) % Lymph # (Auto) 1.58 (0.9-3.2) K/mm3 Mccormick # (Auto) 0.8 H (0.1-0.6) K/mm3 Eos # (Auto) 0.1 (0-0.3) K/mm3 Baso # (Auto) 0.0 (0.0-0.1) K/mm3 Abs Immat Gran (auto) 0.06 H (0.00-0.031) K/mm3 Absolute Neuts (auto) 8.9 H (1.3-6.7) K/mm3 Absolute Nucleated RBC 0.000 (0.0-0.012) K/mm3 Nucleated RBC % 0.0 (0.0-0.2) % % Immature Plt Fraction 5.8 (0.9-11.2) % PT 15.1 H (11.1-14.7) Seconds INR 1.1 APTT 24.9 (22.3-36.8) Seconds Sodium 141 (137-145) mmol/L Potassium 4.4 (3.4-5.0) mmol/L Chloride 107 (98-107) mmol/L Carbon Dioxide 24 (22-30) mmol/L Anion Gap 10 (4-12) mmol/L BUN 26 H (9-20) mg/dL Creatinine 0.88 (0.7-1.3) mg/dL Estim Creat Clear Calc 55 ml/min Estimated GFR > 60 (59 - ) Glucose 120 H (65-110) mg/dL Calcium 9.9 (8.4-10.2) mg/dL Magnesium 1.8 (1.6-2.3) mg/dL Total Bilirubin 1.6 H (0.2-1.3) mg/dL AST 25 (17-59) U/L ALT 18 (6-50) U/L Alkaline Phosphatase 67 (38-126) U/L Troponin I 0.028 (0.000-0.034) ng/mL Total Protein 7.0 (6.3-8.2) g/dL Albumin 4.1 (3.5-5.1) g/dL TSH (Reflex) 10.300 H (0.465-4.68) uIU/mL Free T4 0.86 (0.78-2.19) ng/dL Total T3 1.34 (0.97-1.69) NG/ML Imaging Data Radiologist's impression: Impressions Head CT 07/23/24 09:11 Impression: No acute intracranial hemorrhage or suspicious mass effect. Chest X-Ray 07/23/24 09:16 IMPRESSION: No focal infiltrate or effusion. Hip/Pelvis X-Ray 07/23/24 09:17 IMPRESSION: Acute periprosthetic fracture within the femoral component of the left hip Pelvis CT 07/23/24 10:58 IMPRESSION: Comminuted fracture of the periprosthetic left femur extending cranially into the greater trochanter. Findings within the left common iliac and left external iliac veins for which thrombus is suspected. Discharge Plan Discharge Clinical Impression: Aundrea-prosthetic fracture around prosthetic hip Patient Disposition: Acute Care Hospital Condition: Serious Patient Language: Swedish Prescriptions: No Action PreserVision AREDS-2 250-90-40-1 mg capsule 1 tablet PO BID aspirin 325 mg Tablet 325 mg PO DAILY rosuvastatin 20 mg tablet 20 mg PO HS Qty: 90 1RF lisinopril 20 mg tablet 20 mg PO DAILY Qty: 90 1RF Follow-up/Referrals: Dave Tinajero MD [Primary Care Provider] -
[2024-07-23 08:53] LABS: Basophils Percent Auto 0.3 % (0.2-1.2); Eosinophils Absolute Auto 0.1 K/mm3 (0-0.3); Eosinophils Percent Auto 1.2 % (0-4.4); Hematocrit 44.7 % (42.0-52.0); Hemoglobin 14.5 g/dL (14.0-18.0); Immature Granulocyte Absolute 0.06 K/mm3 (0.00-0.031); Immature Granulocyte Percent A 0.5 % (0-0.5); Immature Platelet Fraction Pct 5.8 % (0.9-11.2); Lymphocytes Absolute Auto 1.58 K/mm3 (0.9-3.2); Lymphocytes Percent Auto 13.6 % (18.3-44.2); Mean Corpuscular HGB Conc 32.4 g/dl (32-36); Mean Corpuscular Hemoglobin 33.6 pg (26-34); Mean Corpuscular Volume 103.7 fl (80-100); Mean Platelet Volume 11.2 fl (7.4-10.4); Monocytes Absolute Auto 0.8 K/mm3 (0.1-0.6); Monocytes Percent Auto 7.2 % (2.6-8.5); Neutrophils Absolute Auto 8.9 K/mm3 (1.3-6.7); Neutrophils Percent Auto 77.2 % (45.5-73.1); Platelet Count Result 130 k/mm3 (150-375); Red Blood Count 4.31 M/mm3 (4.6-6.20); Red Cell Distribution Width 13.5 % (11.5-14.5); White Blood Count 11.6 K/mm3 (4.5-10.0)
[2024-07-23 09:02] LABS: Alanine Aminotransferase 18 U/L (6-50); Albumin Level 4.1 g/dL (3.5-5.1); Alkaline Phosphatase 67 U/L (38-126); Anion Gap 10 mmol/L (4-12); Aspartate Amino Transferase 25 U/L (17-59); Bilirubin,Total 1.6 mg/dL (0.2-1.3); Blood Urea Nitrogen 26 mg/dL (9-20); Calcium 9.9 mg/dL (8.4-10.2); Carbon Dioxide 24 mmol/L (22-30); Chloride 107 mmol/L (98-107); Estimated CRCL calculation 55 ml/min; Estimated Glomerular Filt Rate > 60; Glucose 120 mg/dL (65-110); Magnesium 1.8 mg/dL (1.6-2.3); Potassium 4.4 mmol/L (3.4-5.0); Sodium 141 mmol/L (137-145)
[2024-07-23 09:05] LABS: INR 1.1; Partial Thromboplastin Time 24.9 Seconds (22.3-36.8); Prothrombin Time 15.1 Seconds (11.1-14.7)
--- NOTE | 2024-07-23 09:35 | ECG_ITS ---
Test Date: 2024-07-23 09:35:42 Measurements Intervals [place] Rate: 56 P: 0 RI: 0 QRS: 50 QRSD: 86 T: 32 QT: 425 QTc: 412 Interpretive Statements ATRIAL FIBRILLATION WITH SLOW VENTRICULAR RESPONSE NONSPECIFIC ST & T-WAVE ABNORMALITY ABNORMAL RHYTHM ECG Compared to ECG 07/23/2024 09:19:55 No significant changes Electronically Signed On 07-24-2024 18:15:04 CUSTOMER SERVICE COORDINATOR by Mani Solis M.D.
[2024-07-23 10:04] LABS: Free T4 Free Thyroxine Reflex 0.86 ng/dL (0.78-2.19)
[2024-07-23 10:48] LABS: Total Triiodothyronine (T3) 1.34 NG/ML (0.97-1.69)
--- NOTE | 2024-07-23 11:30 | ECG_ITS ---
Test Date: 2024-07-23 11:30:49 Measurements Intervals [place] Rate: 65 P: 0 CO: 0 QRS: 51 QRSD: 92 T: 184 QT: 422 QTc: 441 Interpretive Statements ATRIAL FIBRILLATION NONSPECIFIC ST & T-WAVE ABNORMALITY Compared to ECG 07/23/2024 09:35:42 No significant changes Electronically Signed On 07-25-2024 10:40:16 DOUGH MOLDER by Wilbert Arnold M.D.
[2024-07-23 12:10] LABS: Troponin I 0.028 ng/mL (0.000-0.034)
--- NOTE | 2024-07-23 12:55 | PC.NURSE ---
Patient complains of minimal discomfort but declines any pain medication at this time
--- OUTSIDE RECORDS SUMMARY | 2024-07-27 10:06 | XMS_ITS | Patient Health Summary ---
Author Organization [facility] Address [address] [place] [address] Care Team Providers Care Child Care Associate Name Role Phone Unavailable Primary Care Provider Unavailabl e Note from [facility],non-owned Affiliates and Associated Physician Practices is amultiple site organization consisting of ambulatory clinics and hospital sitesin [place], [place] and [place]. This disclosure is being madepursuant to the Care Everywhere program and may not contain all information available regarding this patient. Last updated 18.[facility] Social History Tobacco Use Types Packs/Day Years Used Date Smoking Tobacco: Never Assessed Sex and Gender Information Value Date Recorded Sex Assigned at Not on file Gender Identity Not on file Sexual Orientation Not on file
--- OUTSIDE RECORDS SUMMARY | 2024-07-27 10:06 | XMS_ITS | Referral Summary ---
Author Organization [facility] Address [address] [place] [address] Care Team Providers Care Vocational Rehabilitation Specialist Name Role Phone Unavailable Primary Care Provider Unavailabl e Source Comments [facility],non-owned Affiliates and Associated Physician Practices is amultiple site organization consisting of ambulatory clinics and hospital sitesin [place], [place], [place] and [place]. This disclosure is being madepursuant to the Care Everywhere program and may not contain all information available regarding this patient. Last updated 18.[facility] [employer] Social History Tobacco Use Types Packs/Day Years Used Date Smoking Tobacco: Never Assessed Sex and Gender Information Value Date Recorded Sex Assigned at Not on file Gender Identity Not on file Sexual Orientation Not on file Plan of Treatment Not on file
--- OUTSIDE RECORDS SUMMARY | 2024-07-27 10:06 | XMS_ITS | Clinical Summary ---
Author Organization [facility] Address [address] [place] [address]. [place] [address] [place] [address] Care Team Providers Care Butcher Meat Name Role Phone Dave Tinajero MD Primary Care Provider [phone] Allergies No known active allergies Medications lisinopril (PRINIVIL) 20 MG tablet Take 1 tablet (20 mg total) by mouth daily. Active aspirin 325 MG tablet Take 1 tablet (325 mg total) by mouth daily. Active rosuvastatin (CRESTOR) 20 MG tablet Take 1 tablet (20 mg total) by mouth nightly at bedtime. Active Multiple Vitamins-Minera ls (PRESERVISION AREDS 2+MULTI VIT OR) Active Social History Tobacco Use Types Packs/Day Years Used Date Smoking Tobacco: Former Cigarettes Smokeless Tobacco: Never Alcohol Use Standard Drinks/Week Comments Never 0 (1 standard drink = 0.6 oz pur e alcohol) Sex and Gender Information Value Date Recorded Sex Assigned at Not on file Legal Sex Male 1:08 PM CDT Gender Identity Not on file Sexual Orientation Not on file Last Filed Vital Signs Vital Sign Reading Time Taken Comments Blood Pressure 152/55 10/26/2022 8:57 AM CDT Pulse 62 10/26/2022 8:54 AM CDT Temperature 36.1 ??C (97 ??F) 10/26/2022 7:47 AM CDT Respiratory Rate 18 10/26/2022 8:54 AM CDT Oxygen Saturation 96% 10/26/2022 8:54 AM CDT Inhaled Oxygen Concentration - - Weight 79.4 kg (175 lb) 10/26/2022 7:47 AM CDT Height 188 cm (6' 2 ) 10/26/2022 7:47 AM CDT Body Mass Index 22.47 10/26/2022 7:47 AM CDT Plan of Treatment Health Maintenance Due Date Last Done Comments Zoster Vaccines (1 of 2) 1985 Annual Medicare Wellness Visit 02/08/2000 RSV Immunization or 60+ Years (1 - 1-dose 75+ series) 2010 Pneumococcal Vaccine: 65+ Years (2 of 2 - PPSV23 or PCV20) 07/31/2017 07/31/2016 COVID-19 Vaccine ( - season) 2024 06/04/2022, 05/02/2021, 09/17/2020, Additional history exists Influenza Adult (#1) 2024 05/22/2022, 05/05/2021, 05/13/2020, Additional history exists DTaP, Tdap and Td Vaccines (3 - Td or Tdap) 06/25/2030 06/25/2020, 10/01/2015 Meningococcal Vaccine Aged Out No bibi gonzalo eligible based on patient's age to complete this topic RSV Immunizations Under 20 Months Aged Out No longer eligible based on patient's age to complete this topic Medical Devices Implanted Type Area Licensed Esthetician Device Identifier Shelf Expiration Date Model / Serial / Lot 1 Piece Iol With [employer]ec[employer] Simplicity Delivery System Implanted:Qty: 1 on 10/26/2022 by Kenn Graham MD at [facility] Left: Eye 05/11/2025 / [id number] / Insurance [place] [address] [place] [address] [place] [id number] [facility] Care Teams Butcher Meat Relationship Specialty Start Date End Date Dave Tinajero MD [address] [place] [id number] PCP - General FAMILY PRACTICE 10/13/22
--- OUTSIDE RECORDS SUMMARY | 2024-07-27 10:06 | XMS_ITS | Clinical Summary ---
Author Organization [facility] Address [address] [place] [address] Care Team Providers Care Corn Detasseler Name Role Phone Unavailable Primary Care Provider Unavailabl e Source Comments [facility],non-owned Affiliates and Associated Physician Practices is amultiple site organization consisting of ambulatory clinics and hospital sitesin [place], [place], [place] and [place]. This disclosure is being madepursuant to the Care Everywhere program and may not contain all information available regarding this patient. Last updated 18.[facility] Social History Tobacco Use Types Packs/Day Years Used Date Smoking Tobacco: Never Assessed Sex and Gender Information Value Date Recorded Sex Assigned at Not on file Gender Identity Not on file Sexual Orientation Not on file Plan of Treatment Health Maintenance Due Date Last Done Comments DTAP/TDAP/TD VACCINES (1 - Tdap) 1954 PNEUMOCOCCAL VACCINE 50+ (1 of 1 - PCV) 1985 ZOSTER VACCINE (1 of 2) 1985 Respiratory Syncytial Virus (RSV) Vaccine Pt: or over 60 yrs (1 - 1-dose 75+ series) 2010 COVID-19 VACCINE (2023-2 5 season) 2024 INFLUENZA VACCINE (#1) 2024 DEPRESSION SCREENING 07/05/2024 HEPATITIS B VACCINE Aged Out No longe r eligible based on patient's age to complete this topic HIB VACCINE Aged Out No longer eligi ble based on patient's age to complete this topic HPV VACCINE Aged Out No longer eligi ble based on patient's age to complete this topic MENINGOCOCCAL (Group B) VACCINE Aged Out No longer eligible based on patient's age to complete this topic MENINGOCOCCAL VACCINE Aged Out No bibi gonzalo eligible based on patient's age to complete this topic
== END 2024-07-23 14:30 | disposition short-term general hospital (02) ==
PROVIDERS: Emergency Provider Emergency Medicine; PCP Family Medicine
DX: S72.112A Displaced fracture of greater trochanter of left femur, initial encounter for closed fracture (principal); M97.02XA Periprosthetic fracture around internal prosthetic left hip joint, initial encounter; I65.23 Occlusion and stenosis of bilateral carotid arteries; I25.10 Atherosclerotic heart disease of native coronary artery without angina pectoris; I25.2 Old myocardial infarction; I10 Essential (primary) hypertension; I34.0 Nonrheumatic mitral (valve) insufficiency; E78.5 Hyperlipidemia, unspecified; M19.90 Unspecified osteoarthritis, unspecified site; Z95.5 Presence of coronary angioplasty implant and graft; Z96.643 Presence of artificial hip joint, bilateral; Z85.828 Personal history of other malignant neoplasm of skin; Z87.891 Personal history of nicotine dependence; R93.89 Abnormal findings on diagnostic imaging of other specified body structures; W01.198A Fall on same level from slipping, tripping and stumbling with subsequent striking against other object, initial encounter; I48.91 Unspecified atrial fibrillation; R94.31 Abnormal electrocardiogram [ECG] [EKG]
CPT/HCPCS: 36415; 70450; 71045; 72192; 73502; 80053; 83735; 84439; 84443; 84480; 84484; 85025; 85055; 85610; 85730; 93005; 99285

== ENCOUNTER 2024-11-28 16:00 | Inpatient (IN) | payer MEDICARE, SELFPAY ==
--- NOTE | ~2024-11-28 | CT_ITS ---
CT abdomen pelvis w con Ordering provider: Vida Yang PA-C History: 89 years Male with . abd pain, diarrhea . Comparison: July 23, 2024 Technique: CT abdomen and pelvis with IV and without oral contrast. Automated exposure control and it erative reconstruction technique were employed. The dose-length product was 679.77 mGy-cm. 100 mL Omn ipaque 350 was given IV. Findings: VISUALIZED LOWER CHEST: Dependent atelectatic changes. UPPER ABDOMINAL ORGANS: Liver: Normal. Gallbladder: Normal. Spleen: Normal. Stomach/duodenum: Normal. Pancreas: Normal. Adrenals: Prominent both adrenal glands. Kidneys: Bilateral parapelvic cysts. Small right kidney midpole and lower pole cysts. PELVIC ORGANS: The bladder shows thickened wall with irregularity suggestive of cystitis. BOWEL AND MESENTERY: Colon: Thickened wall of the rectum and sigmoid with surrounding fat stranding suggestive of proctiti s and colitis. Inflammatory bowel disease should be considered.. Clinical correlation advised.. The a ppendix is not demonstrated. Small Bowel: Normal. No obstruction. Peritoneum/mesentery: No free air or free fluid. No mesenteric lymphadenopathy. RETROPERITONEUM: Moderate atheromatous disease of the abdominal aorta. No retroperitoneal lymphaden opathy. MUSCULOSKELETAL: Superficial soft tissues: Left fat-containing inguinal hernia. Small fat-containing umbilical hernia. Otherwise, The superficial soft tissues are normal. Bones: Age appropriate degenerative changes of the spine. Possible lucency in the inferior pubic steph s which may be acute or chronic fracture. Clinical correlation for tenderness advised. Healing fractu re in the left superior pubic ramus. Pubic symphysitis. Bilateral hip arthroplasty. Bilateral sacroil iacs. IMPRESSION: 1. No evidence of appendicitis, diverticulitis or intestinal obstruction. 2. Thickened wall of the rectosigmoid area with surrounding fat stranding suggestive of proctitis wi th possible inflammatory bowel disease. Clinical correlation advised. 3. Thickened wall of the gallbladder suggestive of cystitis. Clinical correlation advised. Reviewed, dictated and finalized at location A. IMPRESSION: 1. No evidence of appendicitis, diverticulitis or intestinal obstruction. 2. Thickened wall of the rectosigmoid area with surrounding fat stranding sugg estive of proctitis with possible inflammatory bowel disease. Clinical correlat ion advised. 3. Thickened wall of the gallbladder suggestive of cystitis. Clinical correlat ion advised.
--- OUTSIDE RECORDS SUMMARY | 2024-11-28 16:04 | XMS_ITS | Clinical Summary ---
Author Organization [facility] [facility] Address [address] [place] [address] Care Team Providers Care Gaming Table Operator Name Role Phone Unavailable Primary Care Provider Unavailabl e Source Comments [facility],non-owned Affiliates and Associated Physician Practices is amultiple site organization consisting of ambulatory clinics and hospital sitesin [place]. This disclosure is being madepursuant to the Care Everywhere program and may not contain all information available regarding this patient. 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 Gender Identity Not on file Sexual Orientation Not on file Plan of Treatment Health Maintenance Due Date Last Done Comments DTAP/TDAP/TD VACCINES (1 - Tdap) 1954 PNEUMOCOCCAL VACCINE 50+ (1 of 1 - PCV) 1985 ZOSTER VACCINE (1 of 2) 1985 Respiratory Syncytial Virus (RSV) Vaccine Pt: or over 60 yrs (1 - 1-dose 75+ series) 2010 COVID-19 VACCINE ( - 2023-2 5 season) 2024 DEPRESSION SCREENING 07/05/2024 INFLUENZA VACCINE (Season Ended) 2025 HEPATITIS B VACCINE Aged Out No longe r eligible based on patient's age to complete this topic HIB VACCINE Aged Out No longer eligi ble based on patient's age to complete this topic HPV VACCINE Aged Out No longer eligi ble based on patient's age to complete this topic MENINGOCOCCAL (Group B) VACC INE SHARED DECISION-MAKING Aged Out No longer eligibl e based on patient's age to complete this topic MENINGOCOCCAL GROUPS A/C/Y/W VACCINE Aged Out No longer eligible b ased on patient's age to complete this topic
--- OUTSIDE RECORDS SUMMARY | 2024-11-28 16:04 | XMS_ITS | Encounter Summary ---
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 Gender Identity Not on file Sexual Orientation Not on file documented as of this encounter Plan of Treatment Not on file documented as of this encounter Procedures Procedure Name Priority Date/Time Associated Diagnosis Comments CBC W AUTO DIFFERENTIAL STAT 07/27/2024 5:00 PM DIPLOMA MEDICAL ASSISTANT COMPREHENSIVE METABOLIC PANEL STAT 07/27/2024 5:00 PM DIPLOMA MEDICAL ASSISTANT documented in this encounter Results * (ABNORMAL) COMPREHENSIVE METABOLIC PANEL (07/27/2024 5:00 PM DIPLOMA MEDICAL ASSISTANT) Glucose 111(H) 70 - 99 mg/dL 07/27/2024 6:55 PM DIPLOMA MEDICAL ASSISTANT [facility] Sodium 137 136 - 145 mmol/L 07/27/2024 6:55 PM DIPLOMA MEDICAL ASSISTANT [facility] Potassium 4.7 3.5 - 5.1 mmol/L 07/27/2024 6:55 PM DIPLOMA MEDICAL ASSISTANT [facility] Chloride 107 98 - 107 mmol/L 07/27/2024 6:55 PM DIPLOMA MEDICAL ASSISTANT [facility] CO2 22 22 - 29 mmol/L 07/27/2024 6:55 PM DIPLOMA MEDICAL ASSISTANT [facility] Calcium 8.4 8.4 - 10.4 mg/dL 07/27/2024 6:55 PM [facility] Anion Gap 8 6 - 16 mmol/L 07/27/2024 6:55 PM [facility] BUN 28(H) 7 - 26 mg/dL 07/27/2024 6:55 PM [facility] Creatinine 0.79 0.72 - 1.25 mg/dL 07/27/2024 6:55 PM [facility] Alkaline Phosphatase 60 40 - 150 U/L 07/27/2024 6:55 PM [facility] ALT 8 0 - 55 U/L 07/27/2024 6:55 PM [facility] AST 38(H) 5 - 34 U/L 07/27/2024 6:55 PM [facility] Protein Total 5.6(L) 6.4 - 8.3 gm/dL 07/27/2024 6:55 PM [facility] Albumin 2.6(L) 3.4 - 5.0 gm/dL 07/27/2024 6:55 PM [facility] Bilirubin Total 1.3(H) 0.2 - 1.2 mg/dL 07/27/2024 6:55 PM [facility] eGFR by CKD-EPI 85(L) >=90 mL/min/1.7 3 m2 07/27/2024 6:55 PM [facility] Blood BLOOD SPECIMEN / Unknown Venipuncture / Unknown 07/27/2024 5:00 PM DIPLOMA MEDICAL ASSISTANT 07/27/2024 6:01 PM [facility] Dougie Dang DO LAB - CHEMISTRY ORDERABLES Final Result [facility] [address] [place] [address] * (ABNORMAL) CBC WITH DIFFERENTIAL (07/27/2024 5:00 PM [facility]) WBC 8.5 4.0 - 10.7 x10E9/L 07/27/2024 6:16 PM [facility] RBC Count 2.64(L) 4.30 - 5.80 x10E12/L 07/27/2024 6:16 PM [facility] Hemoglobin 9.0(L) 13.3 - 17.5 g/dL 07/27/2024 6:16 PM [facility] Hematocrit 27.6(L) 38.7 - 51.1 % 07/27/2024 6:16 PM [facility] MCV 104.5(H) 80.0 - 98.0 fL 07/27/2024 6:16 PM [facility] MCH 34.1(H) 26.7 - 33.6 pg 07/27/2024 6:16 PM [facility] MCHC 32.6 31.7 - 36.3 g/dL 07/27/2024 6:16 PM [facility] RDW-CV 13.7 11.3 - 14.8 % 07/27/2024 6:16 PM [facility] Platelet Count 104(L) 150 - 420 x10E9/L 07/27/2024 6:16 PM [facility] MPV 11.5(H) 7.8 - 11.4 fL 07/27/2024 6:16 PM [facility] Neutrophil % 64.9 41.0 - 74.0 % 07/27/2024 6:16 PM [facility] Lymphocyte % 19.8 17.0 - 47.0 % 07/27/2024 6:16 PM [facility] Monocyte % 12.1(H) 3.0 - 11.0 % 07/27/2024 6:16 PM [facility] Eosinophil % 2.2 0.0 - 7.0 % 07/27/2024 6:16 PM [facility] Basophil % 0.5 0.0 - 1.6 % 07/27/2024 6:16 PM [facility] Immature Granulocytes % 0.5 0.0 - 1.0 % 07/27/2024 6:16 PM [facility] Neutrophil Absolute 5.53 1.60 - 7.50 x10E9/L 07/27/2024 6:16 PM [facility] Lymphocyte Absolute 1.69 1.00 - 4.40 x10E9/L 07/27/2024 6:16 PM [facility] Monocyte Absolute 1.03(H) 0.15 - 1.00 x10E9/L 07/27/2024 6:16 PM [facility] Eosinophil Absolute 0.19 0.00 - 0.60 x10E9/L 07/27/2024 6:16 PM DIPLOMA MEDICAL ASSISTANT [facility] Basophil Absolute 0.04 0.00 - 0.13 x10E9/L 07/27/2024 6:16 PM DIPLOMA MEDICAL ASSISTANT [facility] NRBC 0.7(H) <=0.0 /100 WBC 07/27/2024 6:16 PM DIPLOMA MEDICAL ASSISTANT [facility] Blood BLOOD SPECIMEN / Unknown Venipuncture / Unknown 07/27/2024 5:00 PM DIPLOMA MEDICAL ASSISTANT 07/27/2024 6:01 PM DIPLOMA MEDICAL ASSISTANT Dougie Dang DO LAB - HEMATOLOGY ORDERABLES Ginny berumen Result Performing Organization Address City/State/[facility] Co de Phone Number [facility] [address] [place] [address] documented in this encounter Visit Diagnoses Not on filedocumented in this encounter
--- OUTSIDE RECORDS SUMMARY | 2024-11-28 16:04 | XMS_ITS | Clinical Summary ---
Author Organization [facility] [place] [address] Address [address] [place] [address] Care Team Providers Care Operator Assistant I Cementing Name Role Phone Dave Tinajero MD Primary Care Provider [phone] Allergies No known active allergies Medications aspirin 325 mg tablet Take 1 tablet (325 mg total) by mouth daily Active lisinopriL (PRINIVIL,ZESTR IL) 20 mg tablet Take 1 tablet (20 mg total) by mouth daily Active rosuvastatin (CRESTOR) 20 mg tablet Take 1 tablet (20 mg total) by mouth nightly Active methocarbamoL (ROBAXIN) 500 mg tablet Take 1 tablet (500 mg total) by mouth 3 (three) times a day as needed for muscle spasms 5 Active acetaminophen 500 mg capsuleIndicati ons:Pain Take 2 capsules (1,000 mg total) by mouth every 6 (six) hours as needed for pain 5 Active senna-docusate (PERICOLACE) 8.6-50 mg Take 2 tablets by mouth 2 (two) times a day as needed for constipation 5 Active aspirin 81 mg enteric coated tablet Take 1 tablet (81 mg total) by mouth daily Active Active Problems Problem Noted Date Diagnosed Date HTN (hypertension) 07/24/2024 Assessment & Plan (07/26/2024 2:34 PM FIGHTING 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 Global Longitudinal Strain is -13 %. The left ventricle is normal in size and systolic function. There is concentric left ventricular remodeling. The left ventricular ejection fraction is visually estimated to be 60-65%. There mitral valve leaflets are thickened. There is no mitral stenosis. There is mild mitral regurgitation. There is posterior annular calcification. - Holding ASA 325 mg daily for OR, plan to resume on discharge -07/26 stable for dispo; resume full dose ASA at dispo; f/u with previously established provider for management Acute pain due to trauma 07/24/2024 Assessment & Plan (07/26/2024 2:32 PM FIGHTING VEHICLE SYSTEMS MAINTAINER): - Tylenol 1000 mg q6h - Robaxin 500 mg TID - Oxycodone 2.5 mg q4h PRN -07/26 pain controlled; PO pain meds; wean as able after discharge > no oxy x 24hr; no Rx at dispo Discharge planning issues 07/24/2024 Assessment & Plan (07/26/2024 2:34 PM FIGHTING VEHICLE SYSTEMS MAINTAINER): - 07/24: OR today with Orthopedics - 07/25: Pending PT/OT evaluations -07/26 Patient is medically stable for discharge, SW/CM updated. Discharge pending facility acceptance - daughter OK with either SNF v rehab > dispo today Elevated bilirubin 07/24/2024 Assessment & Plan (07/26/2024 2:34 PM FIGHTING VEHICLE SYSTEMS MAINTAINER): - Trend LFTs - Bilirubin trend 1.8-1.5 - CMP daily -07/26 Tbili 0.8, no abdominal pain, tolerating diet > CONSIDER RESOLVED Encounter for medication review 07/24/2024 Assessment & Plan (07/24/2024 10:02 AM FIGHTING VEHICLE SYSTEMS MAINTAINER): - 07/24: Home medications reviewed via chart review New onset a-fib 07/24/2024 Assessment & Plan (07/26/2024 2:35 PM FIGHTING VEHICLE SYSTEMS MAINTAINER): - EKG on admission with atrial fibrillation - Cardiology consult - No documented history of Afib per PCP - Telemetry monitoring - Cardiology recommendations: Initiate anticoagulation post operatively if fall risk permits. If patient does not have any other indication for full dose ASA, and is agreeable to AC, please reduce to baby ASA daily. If not, please continue full dose ASA. - Due to recent falls, plan to discharge on full dose aspirin and have patient follow up with PCP to discuss the need for AC - Needs close PCP follow up to discuss AC needs and for Afib management 07/26 no acute events x24h; HDS, resume ASA at dispo > f/u with previously established provider for management Periprosthetic fracture arou nd internal prosthetic hip joint, initial encounter 07/23/2024 Assessment & Plan (07/26/2024 2:36 PM FIGHTING VEHICLE SYSTEMS MAINTAINER): #acute minimally displaced periprosthetic left femur fracture #acute nondisplaced left superior pubic ramus fx #nondisplaced left (and possible right) sacral alar fractures - Ortho c/s: - s/p OR 07/24 ORIF left periprosthetic femur - Dressing to be changed POD3 - Sutures/jeremias to be removed 3 weeks from surgery - TTWB LLE - PT/OT - pain control Ortho Trauma f/u scheduled 08/16/24 Phone number provided at dispo Encounters Date Type Department Care Team Description 11/01/2024 11:40 AM CDT Office Visit [facility] Orthopaedic Surgery [address] [place] [address] Advanced Medicine [address] [place] [address] [place] [address] Laisha Ferrara MD 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, initial encounter (Primary Dx) 11/01/2024 11:15 AM CDT - 11/01/2024 11:59 PM CDT Hospital Encounter [facility] [address] [place] [address] Laisha Ferrara MD 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, initial encounter Discharge Disposition: Discharge to home or self care 09/20/2024 1:30 PM CDT Office Visit [facility] Orthopaedic Surgery [address] [facility] Advanced Medicine [address]th [place] [address] [place] [address] Laisha Ferrara MD 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, initial encounter (Primary Dx) 09/20/2024 1:21 PM CDT - 09/20/2024 11:59 PM CDT Hospital Encounter [facility] [address] [place] [address] Laisha Ferrara MD 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, initial encounter Discharge Disposition: Discharge to home or self care from Last 3 Months Surgical History Surgery Date Site/Laterality Comments TOTAL HIP ARTHROPLASTY Bilateral Total Hip Replacement TOTAL HIP ARTHROPLASTY Medical History Medical History Date Comments Hypertension High cholesterol DE (myocardial infarction) (HCC) Social History Tobacco Use Types Packs/Day Years Used Date Smoking Tobacco: Former Cigarettes Q uit: 07/05/1967 Tobacco Cessation:Counseling Given: Not Answered Alcohol Use Standard Drinks/Week Comments No 0 (1 standard drink = 0.6 oz pur e alcohol) Personal Safety Answer Date Recorded Have you ever been in or are you currently in a harmful physical or emotional relationship or is someone making you feel afraid or unsafe? Denies 07/23/2024 Sex and Gender Information Value Date Recorded Sex Assigned at Not on file Legal Sex Male 1:56 AM FIGHTING VEHICLE SYSTEMS MAINTAINER Gender Identity Not on file Sexual Orientation Not on file Obstetrics History Last Filed Vital Signs Vital Sign Reading Time Taken Comments Blood Pressure 140/61 07/26/2024 3:30 PM FIGHTING VEHICLE SYSTEMS MAINTAINER Pulse 75 07/26/2024 3:30 PM FIGHTING VEHICLE SYSTEMS MAINTAINER Temperature 36.6 C (97.9 F) 07/26/2024 3:30 PM FIGHTING VEHICLE SYSTEMS MAINTAINER Respiratory Rate 20 07/26/2024 3:30 PM FIGHTING VEHICLE SYSTEMS MAINTAINER Oxygen Saturation 97% 07/26/2024 3:30 PM FIGHTING VEHICLE SYSTEMS MAINTAINER Inhaled Oxygen Concentration - - Weight 78.2 kg (172 lb 6.4 oz) 07/23/2024 10:55 PM FIGHTING VEHICLE SYSTEMS MAINTAINER Height 182.9 cm (6') 07/23/2024 10:55 PM FIGHTING VEHICLE SYSTEMS MAINTAINER Body Mass Index 23.38 07/23/2024 10:55 PM FIGHTING VEHICLE SYSTEMS MAINTAINER Plan of Treatment Health Maintenance Due Date Last Done Comments Depression Screening 1935 Hepatitis B Screening 1953 Zoster Vaccine (1 of 2) 1985 Well Visit 65+ 02/08/2000 Pneumococcal vaccine 65+ (2 of 2 - PPSV23) 07/31/2017 07/31/2016 Covid-19 Vaccine (5 2023-2 5 season) 2024 06/04/2022, 05/02/2021, 09/17/2020, Additional history exists Fall Risk Assessment 07/26/2025 07/26/2024 DTaP/Tdap/Td Vaccine (3 - Td or Tdap) 06/25/2030 06/25/2020, 10/01/2015 Influenza Vaccine Completed 05/23/2024, , 05/22/2022, Additional history exists Medical Devices Implanted Type Area General Engineering Teacher Device Identifier Shelf Expiration Date Model / Serial / Lot Synthes Plate Bone Ring Attachment Small Left 3.5mm 02.221.101s - [id number] Implanted:Qty: 1 on 07/24/2024 by Laisha Ferrara MD at [facility] Plate Left: Femur Synthes I 02.221.101 S / / Synthes 3.5mm 44mm Self Tap Lock Variable Angle Stardrive T15 Screw Bone 02.127.144 - [id number] Implanted:Qty: 1 on 07/24/2024 by Laisha Ferrara MD at [facility] Screw Left: Femur Synthes I 02.127.144 / / Synthes Screw Bone Compression St Full Thread Locking Lcp Va 3.5x54mm Ss 02.127.154 - [id number] Implanted:Qty: 1 on 07/24/2024 by Laisha Ferrara MD at [facility] Screw Left: Femur Synthes 02.127.154 / / Synthes 3.5mm 46mm Self Tap Lock Variable Angle Stardrive T15 Screw Bone 02.127.146 - [id number] Implanted:Qty: 1 on 07/24/2024 by Laisha Ferrara MD at [facility] Screw Left: Femur Synthes I 02.127.146 / / Synthes Screw Bone Cortical St Full Thread T15 Stardrive Lcp 3.5x30mm Ss 02.200.030 - [id number] Implanted:Qty: 1 on 07/24/2024 by Laisha Ferrara MD at [facility] Screw Left: Femur Synthes 02.200.030 / / Synthes Screw Bone Cortical St Full Thread T15 Stardrive Lcp 3.5x32mm Ss 02.200.032 - [id number] Implanted:Qty: 1 on 07/24/2024 by Laisha Ferrara MD at [facility] Screw Left: Femur Synthes 02.200.032 / / Synthes 1.7mm 750mm Crimp Cerclage Cable Orthopedic Stainless Steel 298.801.01s - [id number] Implanted:Qty: 1 on 07/24/2024 by Jean Jimenez MD at [facility] Left: Femur Synthes [id number] 03/04/2029 298.801.01 S / / [id number] Synthes 5mm 44mm Variable Angle Self Tap Lock Stardrive Condylar T25 02.231.244 - [id number] Implanted:Qty: 1 on 07/24/2024 by Laisha Ferrara MD at [facility] Left: Femur Synthes 02.231.244 / / Synthes 5mm 40mm Variable Angle Self Tap Lock Stardrive Condylar T25 02.231.240 - [id number] Implanted:Qty: 1 on 07/24/2024 by Laisha Ferrara MD at [facility] Left: Femur Synthes 02.231.240 / / Synthes 3.5mm 40mm Self Tap Lock Variable Angle Stardrive T15 Screw Bone 02.127.140 - [id number] Implanted:Qty: 1 on 07/24/2024 by Laisha Ferrara MD at [facility] Left: Femur Synthes I 02.127.140 / / Synthes Screw 3.5mm 52mm Bone Stainless Steel T15 Strdrv Rces Lkng 02.127.152 - [id number] Implanted:Qty: 1 on 07/24/2024 by Laisha Ferrara MD at [facility] Left: Femur Synthes I 02.127.152 / / Synthes 3.5mm 6mm 28mm Self Tap Low Profile Stardrive Cortex T15 Full 02.200.028 - [id number] Implanted:Qty: 1 on 07/24/2024 by Laisha Ferrara MD at [facility] Left: Femur Synthes 02.200.028 / / Synthes 3.5mm 50mm Self Tap Lock Variable Angle Stardrive T15 Screw Bone 02.127.150 - [id number] Implanted:Qty: 1 on 07/24/2024 by Laisha Ferrara MD at [facility] Left: Femur Synthes I 02.127.150 / / [employer] Suture Fiberwire 2-0 38in Blue Non Absorbable Ar-7200b - [id number] Implanted:Qty: 2 on 07/24/2024 by Jean Jimenez MD at [facility] Left: Femur [employer] AR-7200B / / Synthes Plate Bone 12 Hole Left 3.5/4.5mm 02.221.131s - [id number] Implanted:Qty: 1 on 07/24/2024 by Laisha Ferrara MD at [facility] Left: Femur Synthes I [id number] 07/04/2032 02.221.131 S / / [id number] Synthes 4.5mm 8mm 40mm Self Tap Large Hexagonal Socket Cortex Screw Bone 214.840 - [id number] Implanted:Qty: 1 on 07/24/2024 by Laisha Ferrara MD at [facility] Left: Femur Synthes 214.840 / / Synthes 4.5mm 8mm 52mm Self Tap Large Hexagonal Socket Cortex Screw Bone 214.852 - [id number] Implanted:Qty: 1 on 07/24/2024 by Laisha Ferrara MD at [facility] Left: Femur Synthes 214.852 / / Synthes 4.5mm 8mm 38mm Self Tap Large Hexagonal Socket Cortex Screw Bone 214.838 - [id number] Implanted:Qty: 2 on 07/24/2024 by Laisha Ferrara MD at [facility] Left: Femur Synthes 214.838 / / Synthes 4.5mm 8mm 76mm Self Tap Large Hexagonal Socket Cortex Screw Bone 214.876 - [id number] Implanted:Qty: 1 on 07/24/2024 by Laisha Ferrara MD at [facility] Left: Femur Synthes 214.876 / / Synthes 4.5mm 8mm 46mm Self Tap Large Hexagonal Socket Cortex Screw Bone 214.846 - [id number] Implanted:Qty: 2 on 07/24/2024 by Laisha Ferrara MD at [facility] Left: Femur Synthes 214.846 / / Explanted Type Area General Engineering Teacher Device Identifier Shelf Expiration Date Model / Serial / Lot Synthes 3.5mm 40mm Self Tap Lock Variable Angle Stardrive T15 Screw Bone 02.127.140 - [id number] Explanted:Qty: 1 on 07/24/2024 by Jean Jimenez MD at [facility] Left: Femur Synthes I 02.127.14 0 / / Synthes 3.5mm 50mm Self Tap Lock Variable Angle Stardrive T15 Screw Bone 02.127.150 - [id number] Explanted:Qty: 1 on 07/24/2024 at [facility] Left: Femur Synthes I 02.127.15 0 / / [employer] Steinmann 5/64in 9in Trocar Point One End Pin Fixation Stainless 1620-509ns - [id number] Explanted:Qty: 1 on 07/24/2024 by Laisha Ferrara MD at [facility] Left: Femur [employer] 1620-509N S / / Synthes 1.7mm 750mm Crimp Cerclage Cable Orthopedic Stainless Steel 298.801.01s - [id number] Explanted:Qty: 1 on 07/24/2024 by Jean Jimenez MD at [facility] Left: Femur Synthes [id number] 03/04/2029 298.801.0 1S / / [id number] Procedures Procedure Name Priority Date/Time Associated Diagnosis Comments XR FEMUR LEFT 2 OR MORE VIEWS Routine 11/01/2024 11:38 AM CDT 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, initial encounter XR FEMUR LEFT 2 OR MORE VIEWS Schedule Routine, Read Routine (OP Routine) 09/20/2024 1:36 PM CDT 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, initial encounter from Last 3 Months Results * XR Femur Left 2 or More Views (11/01/2024 11:38 AM CDT) Anatomical Region Laterality Modality Lower Extremities, Thigh, Femur Left Computed Radiography 11/01/2024 1:01 PM CDT Impressions 11/01/2024 1:01 PM CDT 1. Unchanged reduced and internally fixated left periprosthetic femoral fracture. 2. Unchanged left total hip arthroplasty in expected position. Electronically signed by: Brent Lafleur D.O. Narrative 11/01/2024 1:01 PM CDT EXAMINATION: XR FEMUR LEFT 2 OR MORE VIEWS HISTORY: Fracture follow-up COMPARISON: 09/20/2024 FINDINGS: Unchanged reduced and internally fixated left periprosthetic proximal femoral fracture. Unchanged displacement of the greater trochanter. The instrumentation is intact. Left total hip arthroplasty is in expected position. No new fractures. Extensive vascular calcifications. Procedure Note Brent Lafleur, - 11/01/2024 EXAMINATION: XR FEMUR LEFT 2 OR MORE VIEWS HISTORY: Fracture follow-up COMPARISON: 09/20/2024 FINDINGS: Unchanged reduced and internally fixated left periprosthetic proximal femoral fracture. Unchanged displacement of the greater trochanter. The instrumentation is intact. Left total hip arthroplasty is in expected position. No new fractures. Extensive vascular calcifications. IMPRESSION: 1. Unchanged reduced and internally fixated left periprosthetic femoral fracture. 2. Unchanged left total hip arthroplasty in expected position. Electronically signed by: Brent Lafleur D.O. us Laisha Ferrara MD IMG XR PROCEDURES Final Re sult * XR Femur Left 2 or More Views (09/20/2024 1:36 PM CDT) Anatomical Region Laterality Modality Lower Extremities, Thigh, Femur Left Computed Radiography 09/20/2024 2:37 PM CDT Impressions 09/20/2024 3:13 PM CDT 1. Unchanged left total hip arthroplasty, in expected position. 2. Interval reduction and internal fixation of left periprosthetic femoral fracture. Dictated by: Ignacio Lawson M.D. The radiology attending physician has personally reviewed this study, and had reviewed and/or edited this written report and agrees with it. Electronically signed by: Sunny Goff D.O. Narrative 09/20/2024 3:13 PM CDT EXAMINATION: XR FEMUR LEFT 2 OR MORE VIEWS HISTORY: fracture COMPARISON: 07/23/2024 FINDINGS: Interval postsurgical changes of reduction and internal fixation of left periprosthetic proximal femur fracture. Patent fracture line at the greater trochanter. Instrumentation is intact. Left total hip arthroplasty, in expected position. No additional fractures noted. Vascular calcifications. Procedure Note Sunny Goff, DO - 09/20/2024 EXAMINATION: XR FEMUR LEFT 2 OR MORE VIEWS HISTORY: fracture COMPARISON: 07/23/2024 FINDINGS: Interval postsurgical changes of reduction and internal fixation of left periprosthetic proximal femur fracture. Patent fracture line at the greater trochanter. Instrumentation is intact. Left total hip arthroplasty, in expected position. No additional fractures noted. Vascular calcifications. IMPRESSION: 1. Unchanged left total hip arthroplasty, in expected position. 2. Interval reduction and internal fixation of left periprosthetic femoral fracture. Dictated by: Ignacio Lawson M.D. The radiology attending physician has personally reviewed this study, and had reviewed and/or edited this written report and agrees with it. Electronically signed by: Sunny Goff D.O. Laisha Ferrara MD IMG XR PROCEDURES Final Re sult from Last 3 Months Insurance MEDICARE MEDICARE AET SENIOR SUPPLEMENT MEDICARE AETNA SENIOR SUPPLEMENT Advance Directives For more information, please contact: [phone] Documents on File Type Date Recorded Patient Real Estate Rental Agent Expl anation ADVANCE DIRECTIVE 08/16/2024 11:29 AM PARISH R OF FIELD ASSEMBLY SUPERVISOR ADVANCE DIRECTIVE 07/24/2024 1:55 PM Power of Chipper Operator-Medical * Full Code (Latest Code Status on File) Date Activated Date Inactivated Comments 07/23/2024 10:40 PM 07/26/2024 10:36 PM Care Teams Operator Assistant I Cementing Relationship Specialty Start Date End Date Dave Tinajero MD [address] [place] [id number] PCP - General 04/19/14
--- OUTSIDE RECORDS SUMMARY | 2024-11-28 16:04 | XMS_ITS | Referral Summary ---
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, initial encounter (Primary Dx) from Last 3 Months Allergies No known active allergies Medications aspirin [...] 07/24/2024 Assessment & Plan (07/26/2024 2:34 PM CERTIFIED DIABETES EDUCATOR): - Holding lisinopril for OR, resume as appropriate - Vital signs q4h 07/26 VSS, resume lisinopril at dispo HLD (hyperlipidemia) 07/24/2024 Assessment & Plan (07/24/2024 9:36 AM CERTIFIED DIABETES EDUCATOR): - Continue Crestor CAD (coronary artery disease) 07/24/2024 Assessment & Plan (07/26/2024 2:33 PM CERTIFIED DIABETES EDUCATOR): - Cardiology consult per IPAP - s/p [...] 07/24/2024 Assessment & Plan (07/26/2024 2:32 PM CERTIFIED DIABETES EDUCATOR): - Tylenol 1000 mg q6h - Robaxin 500 mg TID - Oxycodone 2.5 mg q4h PRN -07/26 pain controlled; PO pain meds; wean as able after discharge > no oxy x 24hr; no Rx at dispo Discharge planning issues 07/24/2024 Assessment & Plan (07/26/2024 2:34 PM CERTIFIED DIABETES EDUCATOR): - 07/24: OR today with Orthopedics - 07/25: Pending PT/OT evaluations -07/26 Patient is medically stable for discharge, SW/CM updated. Discharge pending facility acceptance - daughter OK with either SNF v rehab > dispo today Elevated bilirubin 07/24/2024 Assessment & Plan (07/26/2024 2:34 PM CERTIFIED DIABETES EDUCATOR): - Trend LFTs - Bilirubin trend 1.8-1.5 - CMP daily -07/26 Tbili 0.8, no abdominal pain, tolerating diet > CONSIDER RESOLVED Encounter for medication review 07/24/2024 Assessment & Plan (07/24/2024 10:02 AM CERTIFIED DIABETES EDUCATOR): - 07/24: Home medications reviewed via chart review New onset a-fib 07/24/2024 Assessment & Plan (07/26/2024 2:35 PM CERTIFIED DIABETES EDUCATOR): - EKG on admission with atrial fibrillation [...] 07/23/2024 Assessment & Plan (07/26/2024 2:36 PM CERTIFIED DIABETES EDUCATOR): #acute minimally displaced periprosthetic left femur fracture [...] scheduled 08/16/24 Phone number provided at dispo Social History Tobacco Use Types Packs/Day Years [...] on file Legal Sex Male 1:56 AM CERTIFIED DIABETES EDUCATOR Gender Identity Not on file Sexual Orientation Not on file Last Filed Vital Signs Vital Sign Reading Time Taken Comments Blood Pressure 140/61 07/26/2024 3:30 PM CERTIFIED DIABETES EDUCATOR Pulse 75 07/26/2024 3:30 PM CERTIFIED DIABETES EDUCATOR Temperature 36.6 C (97.9 F) 07/26/2024 3:30 PM CERTIFIED DIABETES EDUCATOR Respiratory Rate 20 07/26/2024 3:30 PM CERTIFIED DIABETES EDUCATOR Oxygen Saturation 97% 07/26/2024 3:30 PM CERTIFIED DIABETES EDUCATOR Inhaled Oxygen Concentration - - Weight 78.2 kg (172 lb 6.4 oz) 07/23/2024 10:55 PM CERTIFIED DIABETES EDUCATOR Height 182.9 cm (6') 07/23/2024 10:55 PM CERTIFIED DIABETES EDUCATOR Body Mass Index 23.38 07/23/2024 10:55 PM CERTIFIED DIABETES EDUCATOR Plan of Treatment Not on file Medical Devices Implanted Type Area Stereotype Finisher Device Identifier Shelf Expiration Date Model / Serial / Lot Synthes Plate Bone Ring Attachment Small Left 3.5mm 02.221.101s - [id number] Implanted:Qty: 1 on 07/24/2024 by Laisha Ferrara MD at [facility] Plate Left: Femur Synthes I 02.221.101 S / / Synthes 3.5mm 44mm Self Tap Lock Variable Angle Stardrive T15 Screw Bone 02.127.144 - [id number] Implanted:Qty: 1 on 07/24/2024 by Laisha Ferrara MD at [facility] Screw Left: Femur Synthes I 02.127.144 / / Synthes Screw Bone Compression St Full Thread Locking Lcp Va 3.5x54mm Ss 02.127.154 - [id number] Implanted:Qty: 1 on 07/24/2024 by Laisha Ferrara MD at [facility] Screw Left: Femur Synthes 02.127.154 / / Synthes 3.5mm 46mm Self Tap Lock Variable Angle Stardrive T15 Screw Bone 02.127.146 - [id number] Implanted:Qty: 1 on 07/24/2024 by Laisha Ferrara MD at [facility] Screw Left: Femur Synthes I 02.127.146 / / Synthes Screw Bone Cortical St Full Thread T15 Stardrive Lcp 3.5x30mm Ss 02.200.030 - [id number] Implanted:Qty: 1 on 07/24/2024 by Laisha Ferrara MD at [facility] Screw Left: Femur Synthes 02.200.030 / / Synthes Screw Bone Cortical St Full Thread T15 Stardrive Lcp 3.5x32mm Ss 02.200.032 - [id number] Implanted:Qty: 1 on 07/24/2024 by Laisha Ferrara MD at [facility] Screw Left: Femur Synthes 02.200.032 / / Synthes 1.7mm 750mm Crimp Cerclage Cable Orthopedic Stainless Steel 298.801.01s - [id number] Implanted:Qty: 1 on 07/24/2024 by Jean Jimenez MD at [facility] Left: Femur Synthes [id number] 03/04/2029 298.801.01 S / / [id number] Synthes 5mm 44mm Variable Angle Self Tap Lock Stardrive Condylar T25 02.231.244 - [id number] Implanted:Qty: 1 on 07/24/2024 by Laisha Ferrara MD at [facility] Left: Femur Synthes 02.231.244 / / Synthes 5mm 40mm Variable Angle Self Tap Lock Stardrive Condylar T25 02.231.240 - [id number] Implanted:Qty: 1 on 07/24/2024 by Laisha Ferrara MD at [facility] Left: Femur Synthes 02.231.240 / / Synthes 3.5mm 40mm Self Tap Lock Variable Angle Stardrive T15 Screw Bone 02.127.140 - [id number] Implanted:Qty: 1 on 07/24/2024 by Laisha Ferrara MD at [facility] Left: Femur Synthes I 02.127.140 / / Synthes Screw 3.5mm 52mm Bone Stainless Steel T15 Strdrv Rces Lkng 02.127.152 - [id number] Implanted:Qty: 1 on 07/24/2024 by Laisha Ferrara MD at [facility] Left: Femur Synthes I 02.127.152 / / Synthes 3.5mm 6mm 28mm Self Tap Low Profile Stardrive Cortex T15 Full 02.200.028 - [id number] Implanted:Qty: 1 on 07/24/2024 by Laisha Ferrara MD at [facility] Left: Femur Synthes 02.200.028 / / Synthes 3.5mm 50mm Self Tap Lock Variable Angle Stardrive T15 Screw Bone 02.127.150 - [id number] Implanted:Qty: 1 on 07/24/2024 by Laisha Ferrara MD at [facility] Left: Femur Synthes I 02.127.150 / / [employer] Suture Fiberwire 2-0 38in Blue Non Absorbable Ar-7200b - [id number] Implanted:Qty: 2 on 07/24/2024 by Jean Jimenez MD at [facility] Left: Femur [employer] AR-7200B / / Synthes Plate Bone 12 Hole Left 3.5/4.5mm 02.221.131s - [id number] Implanted:Qty: 1 on 07/24/2024 by Laisha Ferrara MD at [facility] Left: Femur Synthes I [id number] 07/04/2032 02.221.131 S / / [id number] Synthes 4.5mm 8mm 40mm Self Tap Large Hexagonal Socket Cortex Screw Bone 214.840 - [id number] Implanted:Qty: 1 on 07/24/2024 by Laisha Ferrara MD at [facility] Left: Femur Synthes 214.840 / / Synthes 4.5mm 8mm 52mm Self Tap Large Hexagonal Socket Cortex Screw Bone 214.852 - [id number] Implanted:Qty: 1 on 07/24/2024 by Laisha Ferrara MD at [facility] Left: Femur Synthes 214.852 / / Synthes 4.5mm 8mm 38mm Self Tap Large Hexagonal Socket Cortex Screw Bone 214.838 - [id number] Implanted:Qty: 2 on 07/24/2024 by Laisha Ferrara MD at [facility] Left: Femur Synthes 214.838 / / Synthes 4.5mm 8mm 76mm Self Tap Large Hexagonal Socket Cortex Screw Bone 214.876 - [id number] Implanted:Qty: 1 on 07/24/2024 by Laisha Ferrara MD at [facility] Left: Femur Synthes 214.876 / / Synthes 4.5mm 8mm 46mm Self Tap Large Hexagonal Socket Cortex Screw Bone 214.846 - [id number] Implanted:Qty: 2 on 07/24/2024 by Laisha Ferrara MD at [facility] Left: Femur Synthes 214.846 / / Explanted Type Area Stereotype Finisher Device Identifier Shelf Expiration Date Model / Serial / Lot Synthes 3.5mm 40mm Self Tap Lock Variable Angle Stardrive T15 Screw Bone 02.127.140 - [id number] Explanted:Qty: 1 on 07/24/2024 by Jean Jimenez MD at [facility] Left: Femur Synthes I 02.127.14 0 / / Synthes 3.5mm 50mm Self Tap Lock Variable Angle Stardrive T15 Screw Bone 02.127.150 - [id number] Explanted:Qty: 1 on 07/24/2024 at [facility] Left: Femur Synthes I 02.127.15 0 / / [employer] Alejandramann 5/64in 9in Trocar Point One End Pin Fixation Stainless 1620-509ns - [id number] Explanted:Qty: 1 on 07/24/2024 by Laisha Ferrara MD at [facility] Left: Femur [employer] [id number] S / / Synthes 1.7mm 750mm Crimp Cerclage Cable Orthopedic Stainless Steel 298.801.01s - [id number] Explanted:Qty: 1 on 07/24/2024 by Jean Jimenez MD at [facility] Left: Femur Synthes [id number] 03/04/2029 298.801.0 1S / / [id number] Procedures Procedure Name Priority Date/Time Associated Diagnosis [...] arthroplasty in expected position. Electronically signed by: Manuel Finnegan 11/01/2024 1:01 PM CDT EXAMINATION: XR FEMUR [...] fractures noted. Vascular calcifications. Procedure Note Sunny Goff DO - 09/20/2024 EXAMINATION: XR FEMUR LEFT [...] it. Electronically signed by: Sunny Goff D.O. us Laisha Ferrara MD IMG XR PROCEDURES Final Re sult from Last 3 Months Insurance MEDICARE MEDICARE Member Subscriber Plan / Payer ( fective 2000-Present) Name:Esdras Gu Member ID:[id number] Relation to Subscriber:Self Name:Esdras Gu Subscriber ID:[id number] Payer ID:[id number] Group ID:Not on file Type:MEDICARE TRADITIONAL Address: [place] [phone] [employer] SENIOR SUPPLEMENT MEDICARE [employer] SENIOR SUPPLEMENT Advance Directives For more information, please contact: [phone] Documents on File Type Date Recorded Patient Senior Validation Engineer Expl anation ADVANCE DIRECTIVE 08/16/2024 11:29 AM PARISH R OF MACHINIST APPRENTICE ADVANCE DIRECTIVE 07/24/2024 1:55 PM Power of General Labor Forklift Operator-Medical * Full Code (Latest Code Status on File) Date Activated Date Inactivated Comments 07/23/2024 10:40 PM 07/26/2024 10:36 PM Care Teams Physician Assistant Certified Relationship Specialty Start Date End Date Dave Tinajero MD [phone] [facility] [place] [address] PCP - General 04/19/14
[2024-11-28 16:05] VITALS: BP 105/56; PULSE 94; RESP 16; TEMP 36.4; O2SAT 98
--- NOTE | 2024-11-28 17:37 | ED_ITS ---
HPI - Nausea/Vomiting/Diarrhea General Chief complaint: Nausea/Vomiting/Diarrhea <SUNNY Hamilton Last Filed: 11/28/24 17:43> Stated complaint: Diarrhea x 1wk <SUNNY Hamilton Last Filed: 11/28/24 17:43> Time Seen by Provider: 11/28/24 17:37 <SUNNY Hamilton Last Filed: 11/28/24 17:43> Focused HPI: Patient is an 89 y/o male who presents to the ED with c/o diarrhea. Patient reports having persistent diarrhea for the past 1 week. He reports multiple episodes a day. States any time he eats or drinks, he has diarrhea. Has tried Imodium, which did slow the diarrhea slightly. Denies rectal bleeding, melena. Has pain in his abdomen associated with BMs. Denies fevers. Denies N/V. Denies recent abx. Denies known hx of cdiff. Stool sample sent to the lab. GENERAL: Elderly, frail, and in no acute distress. HEAD: Normocephalic, atraumatic. CHEST: Clear to auscultation. ?No respiratory distress. HEART: Regular rate and rhythm.? ABD: No significant focal tenderness. Mild diffuse tenderness. Hyperactive BS NEURO: ?Alert and oriented x3. Patient screened in triage and initial orders placed.? ?Additional care and disposition to be based upon?diagnostic testing and treatment. <SUNNY Hamilton Last Filed: 11/28/24 17:43> Source: patient <SUNNY Hamilton Last Filed: 11/28/24 17:43> Mode of arrival: ambulatory <SUNNY Hamilton Last Filed: 11/28/24 17:43> Limitations: no limitations <SUNNY Hamilton Last Filed: 11/28/24 17:43> History of Present Illness HPI Narrative: Agree with the HPI above. Patient is not any recent hospital visits, ER visits or urgent care visits. No recent antibiotics. His last antibiotic was during his periprosthetic femur fracture back in July of this year. He does get home health care visits occasionally and this is only contact with healthcare recently. <Mark Cabello MD - Last Filed: 11/29/24 06:24> Related Data Home medications: Home Medications ?Medication ?Instructions ?Recorded ?Confirmed ?Last Taken ?Type aspirin 325 mg tablet 325 mg PO DAILY 04/23/21 11/29/24 11/28/24 History vit C 250 mg-vit E 90 mg-zinc 40 1 tablet PO BID 05/18/23 11/29/24 11/28/24 History mg-copper 1 [id number] capsule (PreserVision AREDS-2) <SUNNY Hamilton Last Filed: 11/28/24 17:43> Allergies/Adverse reactions: Allergies Allergy/AdvReac Type Severity Reaction Status Date / Time No Known Allergies Allergy Mild Verified 11/28/24 16:02 <Vida Yang PA-C - Last Filed: 11/28/24 17:43> Review of Systems 2 Review of Systems: As reviewed above in HPI <Mark Cabello MD - Last Filed: 11/29/24 06:24> [facility] Past Medical History Medical History: Medical History Primary generalized (osteo)arthritis Old myocardial infarction Atherosclerosis of both carotid arteries Nonrheumatic mitral valve regurgitation First degree AV block Hypotension Carotid artery disease Hyperlipidemia Hypertension Coronary artery disease 2 PR and 2 stents placed about [address] Vee at [facility] <Vida Yang PA-C - Last Filed: 11/28/24 17:43> Surgical History Surgical History: Surgical History History of bilateral hip replacements Left: May 2001. Right: July 2001. History of basal cell carcinoma excision History of heart artery stent X2 History of orthopedic surgery Right foot reconstruction around 1969. <Vida Yang PA-C - Last Filed: 11/28/24 17:43> Family History Family History: Family History Other Heart disease Hypertension <Vida Yang PA-C - Last Filed: 11/28/24 17:43> Social History Social History: Social History Social History: Surrogate decision maker: Janeth Christianson, daughter. Code status: Full code. 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 Smoking packs per day: 4 Smoking cigarettes per day: 80.0 Years smoked: 15 Smoking pack-years: 60.00 Smoking status: Former smoker Tobacco type: cigarettes Smoking end date: 07/05/1960 Additional smoking assessment comments: Quit smoking at age 26. Alcohol intake: current Substance use: never Do You Feel Safe in your Home?: Yes Lack of Transportation: No Lack of Food: Never True Current Housing: I Have Housing Concerned About Future Housing: No Difficulty Paying Gas/Electric Bills: No Difficulty Paying for Meds: No Currently Unemployed: No Education: Grade School Difficulty w/ Childcare or Family Care: No Living arrangements: with family Additional living arrangements comments: The patient lives with his daughter and son-in-law in [place]. Occupation/Education: retired Gender identity (if verbalized by the patient): Male Sexual Orientation (if Verbalized by the Patient): Straight or Heterosexual Spiritual care concerns: No <Vida Yang PA-C - Last Filed: 11/28/24 17:43> Exam 2 Narrative: GENERAL: Elderly and frail, not in any acute physical distress HEAD: [Normocephalic, atraumatic.] EYES: [PERRLA and EOMI.] ENT: Nares clear, no rhinorrhea or epistaxis. Mucous membranes moist. NECK: Supple. CHEST: [Clear to auscultation. No respiratory distress.] HEART: [Regular rate and rhythm]. No murmur heard. [Normal peripheral pulses.] ABDOMEN: [Soft, nondistended], diffuse mild tenderness to palpation, [No rigidity or guarding] EXTREMITIES: Normal range of motion. [No edema.] SKIN: Warm, dry, no rash. NEURO: [No focal deficits]. Alert and oriented [x3.] PSYCH: [Normal mood and affect.] <Mark Cabello MD - Last Filed: 11/29/24 06:24> Course Vital Signs Vital signs: Vital Signs Temperature 36.4 C 11/28/24 16:05 Pulse Rate 94 11/28/24 16:05 Respiratory Rate 16 11/28/24 16:05 Blood Pressure 105/56 L 11/28/24 16:05 Pulse Oximetry 98 11/28/24 16:05 Oxygen Delivery Room Air 11/28/24 16:05 Temperature 36.4 C 11/29/24 06:00 Pulse Rate 85 11/29/24 06:00 Respiratory Rate 18 11/29/24 06:00 Blood Pressure 138/69 11/29/24 06:00 Pulse Oximetry 92 11/29/24 06:00 Oxygen Delivery Room Air 11/28/24 20:15 <Vida Yang PA-C - Last Filed: 11/28/24 17:43> Vital Signs Temperature 36.4 C 11/28/24 16:05 Pulse Rate 94 11/28/24 16:05 Respiratory Rate 16 11/28/24 16:05 Blood Pressure 105/56 L 11/28/24 16:05 Pulse Oximetry 98 11/28/24 16:05 Oxygen Delivery Room Air 11/28/24 16:05 Temperature 36.4 C 11/29/24 06:00 Pulse Rate 85 11/29/24 06:00 Respiratory Rate 18 11/29/24 06:00 Blood Pressure 138/69 11/29/24 06:00 Pulse Oximetry 92 11/29/24 06:00 Oxygen Delivery Room Air 11/28/24 20:15 <Mark Cabello MD - Last Filed: 11/29/24 06:24> MDM - Nausea/Vomiting/Diarrhea MDM Narrative Medical decision making narrative: MSE by SUBHA in triage. <Vida Yang PA-C - Last Filed: 11/28/24 17:43> MSE by SUBHA in triage. 89-year-old male with a past medical history including hypertension, hyperlipidemia, coronary disease. He presents with 1 week worth of voluminous diarrhea and cramping abdominal pain. No recent hospital visits but he did have a periprosthetic fracture requiring hospitalization back in July. He does get home health care with the recovery but for last week he has been having voluminous watery diarrhea and urgency with defecation. He is having cramping abdominal pain and does have some mild tenderness to palpation diffusely on examination. Considerations presently are for intra-abdominal infection, gastroenteritis, colitis, diverticulitis, appendicitis, gastritis, less likely perforation or hollow viscus injury. No reported falls or trauma recently. Given patient's voluminous diarrhea infectious pathology such as C diff is possible given that he does have contact with the healthcare system although no recent antibiotics besides July. C diff sample was obtained and sent off as well as laboratory studies including CBC, CMP, lactic acid, urinalysis, magnesium. Patient provided fluid bolus and bentyl for pain and re-evaluated. Patient lives alone with his elderly daughter who takes care of him. Having some mobility issues since operation in July. Laboratory studies show a leukocytosis of 12.2, C diff positive and he was started on fidaxomicin. No signs of anemia or platelet concerns. He has a slightly elevated BUN which might be some component of dehydration. Normal lactic acid level and normal glucose. Normal electrolytes. CT scan pending. Patient will be admitted after imaging results for antibiotics and symptom control. CT scan shows thickened rectosigmoid area suggestive of proctocolitis and given the setting of C difficile this is correlated. He has thickening of the bladder wall consistent with potential cystitis per urinalysis without any evidence of urinary tract infection. Discussed the case with the hospitalist accepted the patient for admission and patient and family were made aware. <Mrak Cabello MD - Last Filed: 11/29/24 06:24> Medical Records Attestation: I reviewed the patient's medical records. <Mark Cabello MD - Last Filed: 11/29/24 06:24> Lab Data Attestation: I reviewed the patient's lab results. <Mark Cabello MD - Last Filed: 11/29/24 06:24> Result diagrams: 11/28/24 17:45 11/28/24 19:26 <Vida Yang PA-C - Last Filed: 11/28/24 17:43> Labs: Lab Results 11/28/24 11/28/24 11/28/24 Range/Units 17:37 17:45 19:26 WBC 12.2 H (4.5-10.0) K/mm3 RBC 4.79 (4.6-6.20) M/mm3 Hgb 14.7 (14.0-18.0) g/dL Hct 47.5 (42.0-52.0) % MCV 99.2 (80-100) fl MCH 30.7 (26-34) pg MCHC 30.9 L (32-36) g/dl RDW 16.3 H (11.5-14.5) % Plt Count 214 D (150-375) k/mm3 MPV 11.4 H (7.4-10.4) fl Immature Gran % (Auto) 0.2 (0-0.5) % Neut % (Auto) 78.0 H (45.5-73.1) % Lymph % (Auto) 12.4 L (18.3-44.2) % [place] % (Auto) 8.4 (2.6-8.5) % Eos % (Auto) 0.3 (0-4.4) % Baso % (Auto) 0.7 (0.2-1.2) % Lymph # (Auto) 1.51 (0.9-3.2) K/mm3 [place] # (Auto) 1.0 H (0.1-0.6) K/mm3 Eos # (Auto) 0.0 (0-0.3) K/mm3 Baso # (Auto) 0.1 (0.0-0.1) K/mm3 Abs Immat Gran (auto) 0.02 (0.00-0.031) K/mm3 Absolute Neuts (auto) 9.5 H (1.3-6.7) K/mm3 Absolute Nucleated RBC 0.000 (0.0-0.012) K/mm3 Nucleated RBC % 0.0 (0.0-0.2) % Sodium 138 (137-145) mmol/L Potassium 4.6 (3.4-5.0) mmol/L Chloride 105 (98-107) mmol/L Carbon Dioxide 23 (22-30) mmol/L Anion Gap 10 (4-12) mmol/L BUN 32 H (9-20) mg/dL Creatinine 1.05 (0.7-1.3) mg/dL Estim Creat Clear Calc Not Reportable Estimated GFR > 60 (59 - ) Glucose 111 H (65-110) mg/dL Lactic Acid 1.7 (0.7-2.0) mmol/L Calcium 9.8 (8.4-10.2) mg/dL Magnesium 2.0 (1.6-2.3) mg/dL Total Bilirubin 2.6 H (0.2-1.3) mg/dL AST 30 (17-59) U/L ALT 22 (6-50) U/L Alkaline Phosphatase 130 H (38-126) U/L Total Protein 8.0 (6.3-8.2) g/dL Albumin 4.4 (3.5-5.1) g/dL Urine Color (Yellow) Urine Appearance (Clear) Urine pH (5.0-9.0) Ur Specific [place] (1.001-1.035) Urine Protein (Negative) mg/dL Urine Glucose (UA) (Negative) mg/dL Urine Ketones (Negative) mg/dL Ur Blood (Man) (Negative) Urine Nitrate (Negative) Urine Bilirubin (Negative) Urine Urobilinogen (<2.0) mg/dL Add Ur Microanalysis Leukocyte Esterase Rfl (Negative) MOHIT/UL Urine RBC (0-2) /hpf Urine WBC (0-3) /hpf Ur Squamous Epith Cells (Few) /hpf Urine Bacteria /hpf Urine Casts Hyaline Casts (None) /lpf Urine Yeast (Budding) (None) /hpf C. difficile (PCR) Positive A* (NEGATIVE) 11/28/24 Range/Units 22:11 WBC (4.5-10.0) K/mm3 RBC (4.6-6.20) M/mm3 Hgb (14.0-18.0) g/dL Hct (42.0-52.0) % MCV (80-100) fl MCH (26-34) pg MCHC (32-36) g/dl RDW (11.5-14.5) % Plt Count (150-375) k/mm3 MPV (7.4-10.4) fl Immature Gran % (Auto) (0-0.5) % Neut % (Auto) (45.5-73.1) % Lymph % (Auto) (18.3-44.2) % [place] % (Auto) (2.6-8.5) % Eos % (Auto) (0-4.4) % Baso % (Auto) (0.2-1.2) % Lymph # (Auto) (0.9-3.2) K/mm3 [place] # (Auto) (0.1-0.6) K/mm3 Eos # (Auto) (0-0.3) K/mm3 Baso # (Auto) (0.0-0.1) K/mm3 Abs Immat Gran (auto) (0.00-0.031) K/mm3 Absolute Neuts (auto) (1.3-6.7) K/mm3 Absolute Nucleated RBC (0.0-0.012) K/mm3 Nucleated RBC % (0.0-0.2) % Sodium (137-145) mmol/L Potassium (3.4-5.0) mmol/L Chloride (98-107) mmol/L Carbon Dioxide (22-30) mmol/L Anion Gap (4-12) mmol/L BUN (9-20) mg/dL Creatinine (0.7-1.3) mg/dL Estim Creat Clear Calc Estimated GFR (59 - ) Glucose (65-110) mg/dL Lactic Acid (0.7-2.0) mmol/L Calcium (8.4-10.2) mg/dL Magnesium (1.6-2.3) mg/dL Total Bilirubin (0.2-1.3) mg/dL AST (17-59) U/L ALT (6-50) U/L Alkaline Phosphatase (38-126) U/L Total Protein (6.3-8.2) g/dL Albumin (3.5-5.1) g/dL Urine Color Yellow (Yellow) Urine Appearance Cloudy H (Clear) Urine pH 5.5 (5.0-9.0) Ur Specific [place] > 1.045 H (1.001-1.035) Urine Protein 1+ H (Negative) mg/dL Urine Glucose (UA) Negative (Negative) mg/dL Urine Ketones Trace H (Negative) mg/dL Ur Blood (Man) Negative (Negative) Urine Nitrate Negative (Negative) Urine Bilirubin Negative (Negative) Urine Urobilinogen 1.0 (<2.0) mg/dL Add Ur Microanalysis Reviewed Leukocyte Esterase Rfl Negative (Negative) MOHIT/UL Urine RBC 6-10 H (0-2) /hpf Urine WBC 0-5 (0-3) /hpf Ur Squamous Epith Cells None seen (Few) /hpf Urine Bacteria None seen /hpf Urine Casts >20 Hyaline Casts Present (None) /lpf Urine Yeast (Budding) Present H (None) /hpf C. difficile (PCR) (NEGATIVE) <Vida Yang PA-C - Last Filed: 11/28/24 17:43> Lab Results 11/28/24 11/28/24 11/28/24 Range/Units 17:37 17:45 19:26 WBC 12.2 H (4.5-10.0) K/mm3 RBC 4.79 (4.6-6.20) M/mm3 Hgb 14.7 (14.0-18.0) g/dL Hct 47.5 (42.0-52.0) % MCV 99.2 (80-100) fl MCH 30.7 (26-34) pg MCHC 30.9 L (32-36) g/dl RDW 16.3 H (11.5-14.5) % Plt Count 214 D (150-375) k/mm3 MPV 11.4 H (7.4-10.4) fl Immature Gran % (Auto) 0.2 (0-0.5) % Neut % (Auto) 78.0 H (45.5-73.1) % Lymph % (Auto) 12.4 L (18.3-44.2) % [place] % (Auto) 8.4 (2.6-8.5) % Eos % (Auto) 0.3 (0-4.4) % Baso % (Auto) 0.7 (0.2-1.2) % Lymph # (Auto) 1.51 (0.9-3.2) K/mm3 [place] # (Auto) 1.0 H (0.1-0.6) K/mm3 Eos # (Auto) 0.0 (0-0.3) K/mm3 Baso # (Auto) 0.1 (0.0-0.1) K/mm3 Abs Immat Gran (auto) 0.02 (0.00-0.031) K/mm3 Absolute Neuts (auto) 9.5 H (1.3-6.7) K/mm3 Absolute Nucleated RBC 0.000 (0.0-0.012) K/mm3 Nucleated RBC % 0.0 (0.0-0.2) % Sodium 138 (137-145) mmol/L Potassium 4.6 (3.4-5.0) mmol/L Chloride 105 (98-107) mmol/L Carbon Dioxide 23 (22-30) mmol/L Anion Gap 10 (4-12) mmol/L BUN 32 H (9-20) mg/dL Creatinine 1.05 (0.7-1.3) mg/dL Estim Creat Clear Calc Not Reportable Estimated GFR > 60 (59 - ) Glucose 111 H (65-110) mg/dL Lactic Acid 1.7 (0.7-2.0) mmol/L Calcium 9.8 (8.4-10.2) mg/dL Magnesium 2.0 (1.6-2.3) mg/dL Total Bilirubin 2.6 H (0.2-1.3) mg/dL AST 30 (17-59) U/L ALT 22 (6-50) U/L Alkaline Phosphatase 130 H (38-126) U/L Total Protein 8.0 (6.3-8.2) g/dL Albumin 4.4 (3.5-5.1) g/dL Urine Color (Yellow) Urine Appearance (Clear) Urine pH (5.0-9.0) Ur Specific [place] (1.001-1.035) Urine Protein (Negative) mg/dL Urine Glucose (UA) (Negative) mg/dL Urine Ketones (Negative) mg/dL Ur Blood (Man) (Negative) Urine Nitrate (Negative) Urine Bilirubin (Negative) Urine Urobilinogen (<2.0) mg/dL Add Ur Microanalysis Leukocyte Esterase Rfl (Negative) MOHIT/UL Urine RBC (0-2) /hpf Urine WBC (0-3) /hpf Ur Squamous Epith Cells (Few) /hpf Urine Bacteria /hpf Urine Casts Hyaline Casts (None) /lpf Urine Yeast (Budding) (None) /hpf C. difficile (PCR) Positive A* (NEGATIVE) 11/28/24 Range/Units 22:11 WBC (4.5-10.0) K/mm3 RBC (4.6-6.20) M/mm3 Hgb (14.0-18.0) g/dL Hct (42.0-52.0) % MCV (80-100) fl MCH (26-34) pg MCHC (32-36) g/dl RDW (11.5-14.5) % Plt Count (150-375) k/mm3 MPV (7.4-10.4) fl Immature Gran % (Auto) (0-0.5) % Neut % (Auto) (45.5-73.1) % Lymph % (Auto) (18.3-44.2) % [place] % (Auto) (2.6-8.5) % Eos % (Auto) (0-4.4) % Baso % (Auto) (0.2-1.2) % Lymph # (Auto) (0.9-3.2) K/mm3 [place] # (Auto) (0.1-0.6) K/mm3 Eos # (Auto) (0-0.3) K/mm3 Baso # (Auto) (0.0-0.1) K/mm3 Abs Immat Gran (auto) (0.00-0.031) K/mm3 Absolute Neuts (auto) (1.3-6.7) K/mm3 Absolute Nucleated RBC (0.0-0.012) K/mm3 Nucleated RBC % (0.0-0.2) % Sodium (137-145) mmol/L Potassium (3.4-5.0) mmol/L Chloride (98-107) mmol/L Carbon Dioxide (22-30) mmol/L Anion Gap (4-12) mmol/L BUN (9-20) mg/dL Creatinine (0.7-1.3) mg/dL Estim Creat Clear Calc Estimated GFR (59 - ) Glucose (65-110) mg/dL Lactic Acid (0.7-2.0) mmol/L Calcium (8.4-10.2) mg/dL Magnesium (1.6-2.3) mg/dL Total Bilirubin (0.2-1.3) mg/dL AST (17-59) U/L ALT (6-50) U/L Alkaline Phosphatase (38-126) U/L Total Protein (6.3-8.2) g/dL Albumin (3.5-5.1) g/dL Urine Color Yellow (Yellow) Urine Appearance Cloudy H (Clear) Urine pH 5.5 (5.0-9.0) Ur Specific [place] > 1.045 H (1.001-1.035) Urine Protein 1+ H (Negative) mg/dL Urine Glucose (UA) Negative (Negative) mg/dL Urine Ketones Trace H (Negative) mg/dL Ur Blood (Man) Negative (Negative) Urine Nitrate Negative (Negative) Urine Bilirubin Negative (Negative) Urine Urobilinogen 1.0 (<2.0) mg/dL Add Ur Microanalysis Reviewed Leukocyte Esterase Rfl Negative (Negative) MOHIT/UL Urine RBC 6-10 H (0-2) /hpf Urine WBC 0-5 (0-3) /hpf Ur Squamous Epith Cells None seen (Few) /hpf Urine Bacteria None seen /hpf Urine Casts >20 Hyaline Casts Present (None) /lpf Urine Yeast (Budding) Present H (None) /hpf C. difficile (PCR) (NEGATIVE) <Mark Cabello MD - Last Filed: 11/29/24 06:24> Imaging Data Attestation: I personally reviewed and interpreted this imaging study as follows: < Mark Cabello MD - Last Filed: 11/29/24 06:24> My impression: Impressions Abdomen/Pelvis CT 11/28/24 21:14 IMPRESSION: 1. No evidence of appendicitis, diverticulitis or intestinal obstruction. 2. Thickened wall of the rectosigmoid area with surrounding fat stranding suggestive of proctitis with possible inflammatory bowel disease. Clinical correlation advised. 3. Thickened wall of the gallbladder suggestive of cystitis. Clinical correlation advised. ADDENDUM: 11/28/24 [id number] Thickened wall of the urinary bladder suggestive of cystitis. Clinical correlation advised. The gallbladder is normal. <Mark Cabello MD - Last Filed: 11/29/24 06:24> Discharge Plan Discharge Clinical Impression: C. difficile colitis, Acute proctitis <Vida Yang PA-C - Last Filed: 11/28/24 17:43> Patient Disposition: Still a Patient <SUNNY Hamilton Last Filed: 11/28/24 17:43> Condition: Stable <SUNNY Hamilton Last Filed: 11/28/24 17:43>
[2024-11-28 17:50] LABS: Basophils Absolute Auto 0.1 K/mm3 (0.0-0.1); Basophils Percent Auto 0.7 % (0.2-1.2); Eosinophils Percent Auto 0.3 % (0-4.4); Hematocrit 47.5 % (42.0-52.0); Hemoglobin 14.7 g/dL (14.0-18.0); Immature Granulocyte Absolute 0.02 K/mm3 (0.00-0.031); Immature Granulocyte Percent A 0.2 % (0-0.5); Lymphocytes Absolute Auto 1.51 K/mm3 (0.9-3.2); Lymphocytes Percent Auto 12.4 % (18.3-44.2); Mean Corpuscular HGB Conc 30.9 g/dl (32-36); Mean Corpuscular Hemoglobin 30.7 pg (26-34); Mean Corpuscular Volume 99.2 fl (80-100); Mean Platelet Volume 11.4 fl (7.4-10.4); Monocytes Percent Auto 8.4 % (2.6-8.5); Neutrophils Absolute Auto 9.5 K/mm3 (1.3-6.7); Platelet Count Result 214 k/mm3 (150-375); Red Blood Count 4.79 M/mm3 (4.6-6.20); Red Cell Distribution Width 16.3 % (11.5-14.5); White Blood Count 12.2 K/mm3 (4.5-10.0)
[2024-11-28 18:13] LABS: Lactic Acid Reflex 1.7 mmol/L (0.7-2.0)
[2024-11-28 19:28] VITALS: BP 118/66; PULSE 79; RESP 16; O2SAT 100
[2024-11-28 19:47] LABS: Toxigenic C. Diff POSITIVE (NEGATIVE)
[2024-11-28 19:49] LABS: Alanine Aminotransferase 22 U/L (6-50); Albumin Level 4.4 g/dL (3.5-5.1); Alkaline Phosphatase 130 U/L (38-126); Anion Gap 10 mmol/L (4-12); Aspartate Amino Transferase 30 U/L (17-59); Bilirubin,Total 2.6 mg/dL (0.2-1.3); Blood Urea Nitrogen 32 mg/dL (9-20); Calcium 9.8 mg/dL (8.4-10.2); Carbon Dioxide 23 mmol/L (22-30); Chloride 105 mmol/L (98-107); Estimated Glomerular Filt Rate > 60; Glucose 111 mg/dL (65-110); Potassium 4.6 mmol/L (3.4-5.0); Sodium 138 mmol/L (137-145)
[2024-11-28 20:15] VITALS: BP 135/66; PULSE 80; RESP 18; TEMP 37; O2SAT 100
--- OUTSIDE RECORDS SUMMARY | 2024-11-28 20:22 | XMS_ITS | Referral Summary ---
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, initial encounter Discharge Disposition: Discharge to home or self care 11/01/2024 11:40 AM CDT Office Visit [facility] [address] [place] [address] for Advanced Medicine 6th [place] [address] [place] [address] Laisha Ferrara MD 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, initial encounter (Primary Dx) 09/20/2024 1:21 PM CDT - 09/20/2024 11:59 PM CDT Hospital Encounter [facility]) [address] [place] [id number] Laisha Ferrara MD 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, initial encounter Discharge Disposition: Discharge to home or self care 09/20/2024 1:30 PM CDT Office Visit [facility] Critical [facility] 6th [place] [address] [place] [address] Laisha Ferrara MD Periprosthetic fracture around internal [...] 07/24/2024 Assessment & Plan (07/26/2024 2:34 PM HUNTER SKIN DIVER): - Holding lisinopril for OR, resume as appropriate - Vital signs q4h 07/26 VSS, resume lisinopril at dispo HLD (hyperlipidemia) 07/24/2024 Assessment & Plan (07/24/2024 9:36 AM HUNTER SKIN DIVER): - Continue Crestor CAD (coronary artery disease) 07/24/2024 Assessment & Plan (07/26/2024 2:33 PM HUNTER SKIN DIVER): - Cardiology consult per IPAP - s/p [...] 07/24/2024 Assessment & Plan (07/26/2024 2:32 PM HUNTER SKIN DIVER): - Tylenol 1000 mg q6h - Robaxin 500 mg TID - Oxycodone 2.5 mg q4h PRN -07/26 pain controlled; PO pain meds; wean as able after discharge > no oxy x 24hr; no Rx at dispo Discharge planning issues 07/24/2024 Assessment & Plan (07/26/2024 2:34 PM HUNTER SKIN DIVER): - 07/24: OR today with Orthopedics - 07/25: Pending PT/OT evaluations -07/26 Patient is medically stable for discharge, SW/CM updated. Discharge pending facility acceptance - daughter OK with either SNF v rehab > dispo today Elevated bilirubin 07/24/2024 Assessment & Plan (07/26/2024 2:34 PM HUNTER SKIN DIVER): - Trend LFTs - Bilirubin trend 1.8-1.5 - CMP daily -07/26 Tbili 0.8, no abdominal pain, tolerating diet > CONSIDER RESOLVED Encounter for medication review 07/24/2024 Assessment & Plan (07/24/2024 10:02 AM HUNTER SKIN DIVER): - 07/24: Home medications reviewed via chart review New onset a-fib 07/24/2024 Assessment & Plan (07/26/2024 2:35 PM HUNTER SKIN DIVER): - EKG on admission with atrial fibrillation [...] 07/23/2024 Assessment & Plan (07/26/2024 2:36 PM HUNTER SKIN DIVER): #acute minimally displaced periprosthetic left femur fracture [...] on file Legal Sex Male 1:56 AM HUNTER SKIN DIVER Gender Identity Not on file Sexual Orientation Not on file Last Filed Vital Signs Vital Sign Reading Time Taken Comments Blood Pressure 140/61 07/26/2024 3:30 PM HUNTER SKIN DIVER Pulse 75 07/26/2024 3:30 PM HUNTER SKIN DIVER Temperature 36.6 C (97.9 F) 07/26/2024 3:30 PM HUNTER SKIN DIVER Respiratory Rate 20 07/26/2024 3:30 PM HUNTER SKIN DIVER Oxygen Saturation 97% 07/26/2024 3:30 PM HUNTER SKIN DIVER Inhaled Oxygen Concentration - - Weight 78.2 kg (172 lb 6.4 oz) 07/23/2024 10:55 PM HUNTER SKIN DIVER Height 182.9 cm (6') 07/23/2024 10:55 PM HUNTER SKIN DIVER Body Mass Index 23.38 07/23/2024 10:55 PM HUNTER SKIN DIVER Plan of Treatment Not on file Medical Devices Implanted Type Area Stock Mixer Device Identifier Shelf Expiration Date Model / Serial / Lot Synthes Plate Bone Ring Attachment Small Left 3.5mm 02.221.101s - [id number] Implanted:Qty: 1 on 07/24/2024 by Laisha Ferrara MD at [facility] Plate Left: Femur Synthes I 02.221.101 S / / Synthes 3.5mm 44mm Self Tap Lock Variable Angle Stardrive T15 Screw Bone 02.127.144 - [id number] Implanted:Qty: 1 on 07/24/2024 by Laisha Ferrara MD at [facility] Screw Left: Femur Synthes I 02.127.144 / / Synthes Screw Bone Compression St Full Thread Locking Lcp Va 3.5x54mm Ss 02.127.154 - [id number] Implanted:Qty: 1 on 07/24/2024 by Laisha Ferrara MD at [facility] Screw Left: Femur Synthes 02.127.154 / / Synthes 3.5mm 46mm Self Tap Lock Variable Angle Stardrive T15 Screw Bone 02.127.146 - [id number] Implanted:Qty: 1 on 07/24/2024 by Laisha Ferrara MD at [facility] Screw Left: Femur Synthes I 02.127.146 / / Synthes Screw Bone Cortical St Full Thread T15 Stardrive Lcp 3.5x30mm Ss 02.200.030 - [id number] Implanted:Qty: 1 on 07/24/2024 by Laisha Ferrara MD at [facility] Screw Left: Femur Synthes 02.200.030 / / Synthes Screw Bone Cortical St Full Thread T15 Stardrive Lcp 3.5x32mm Ss 02.200.032 - [id number] Implanted:Qty: 1 on 07/24/2024 by Laisha Ferrara MD at [facility] Screw Left: Femur Synthes 02.200.032 / / Synthes 1.7mm 750mm Crimp Cerclage Cable Orthopedic Stainless Steel 298.801.01s - [id number] Implanted:Qty: 1 on 07/24/2024 by Jean Jimenez MD at [facility] Left: Femur Synthes [id number] 03/04/2029 298.801.01 S / / [id number] Synthes 5mm 44mm Variable Angle Self Tap Lock Stardrive Condylar T25 02.231.244 - [id number] Implanted:Qty: 1 on 07/24/2024 by Laisha Ferrara MD at [facility] Left: Femur Synthes 02.231.244 / / Synthes 5mm 40mm Variable Angle Self Tap Lock Stardrive Condylar T25 02.231.240 - [id number] Implanted:Qty: 1 on 07/24/2024 by Laisha Ferrara MD at [facility] Left: Femur Synthes 02.231.240 / / Synthes 3.5mm 40mm Self Tap Lock Variable Angle Stardrive T15 Screw Bone 02.127.140 - [id number] Implanted:Qty: 1 on 07/24/2024 by Laisha Ferrara MD at [facility] Left: Femur Synthes I 02.127.140 / / Synthes Screw 3.5mm 52mm Bone Stainless Steel T15 Strdrv Rces Lkng 02.127.152 - [id number] Implanted:Qty: 1 on 07/24/2024 by Laisha Ferrara MD at [facility] Left: Femur Synthes I 02.127.152 / / Synthes 3.5mm 6mm 28mm Self Tap Low Profile Stardrive Cortex T15 Full 02.200.028 - [id number] Implanted:Qty: 1 on 07/24/2024 by Laisha Ferrara MD at [facility] Left: Femur Synthes 02.200.028 / / Synthes 3.5mm 50mm Self Tap Lock Variable Angle Stardrive T15 Screw Bone 02.127.150 - [id number] Implanted:Qty: 1 on 07/24/2024 by Laisha Ferrara MD at [facility] Left: Femur Synthes I 02.127.150 / / [employer] Suture Fiberwire 2-0 38in Blue Non Absorbable Ar-[id number] - [id number] Implanted:Qty: 2 on 07/24/2024 by Jean Jimenez MD at [facility] Left: Femur [employer] AR-7200B / / Synthes Plate Bone 12 Hole Left 3.5/4.5mm 02.221.131s - [id number] Implanted:Qty: 1 on 07/24/2024 by Laisha Ferrara MD at [facility] Left: Femur Synthes I [id number] 07/04/2032 02.221.131 S / / [id number] Synthes 4.5mm 8mm 40mm Self Tap Large Hexagonal Socket Cortex Screw Bone 214.840 - [id number] Implanted:Qty: 1 on 07/24/2024 by Laisha Ferrara MD at [facility] Left: Femur Synthes 214.840 / / Synthes 4.5mm 8mm 52mm Self Tap Large Hexagonal Socket Cortex Screw Bone 214.852 - [id number] Implanted:Qty: 1 on 07/24/2024 by Laisha Ferrara MD at [facility] Left: Femur Synthes 214.852 / / Synthes 4.5mm 8mm 38mm Self Tap Large Hexagonal Socket Cortex Screw Bone 214.838 - [id number] Implanted:Qty: 2 on 07/24/2024 by Laisha Ferrara MD at [facility] Left: Femur Synthes 214.838 / / Synthes 4.5mm 8mm 76mm Self Tap Large Hexagonal Socket Cortex Screw Bone 214.876 - [id number] Implanted:Qty: 1 on 07/24/2024 by Laisha Ferrara MD at [facility] Left: Femur Synthes 214.876 / / Synthes 4.5mm 8mm 46mm Self Tap Large Hexagonal Socket Cortex Screw Bone 214.846 - [id number] Implanted:Qty: 2 on 07/24/2024 by Laisha Ferrara MD at [facility] Left: Femur Synthes 214.846 / / Explanted Type Area Stock Mixer Device Identifier Shelf Expiration Date Model / Serial / Lot Synthes 3.5mm 40mm Self Tap Lock Variable Angle Stardrive T15 Screw Bone 02.127.140 - [id number] Explanted:Qty: 1 on 07/24/2024 by Jean Jimenez MD at [facility] Left: Femur Synthes I 02.127.14 0 / / Synthes 3.5mm 50mm Self Tap Lock Variable Angle Stardrive T15 Screw Bone 02.127.150 - [id number] Explanted:Qty: 1 on 07/24/2024 at [facility] Left: Femur Synthes I 02.127.15 0 / / [employer] Alejandramann 5/64in 9in Trocar Point One End Pin Fixation Stainless 1620-509ns - [id number] Explanted:Qty: 1 on 07/24/2024 by Laisha Ferrara MD at [facility] Left: Femur [employer] 1620-509N S / / Synthes 1.7mm 750mm Crimp Cerclage Cable Orthopedic Stainless Steel 298.801.01s - [id number] Explanted:Qty: 1 on 07/24/2024 by Jean Jimenez MD at [facility] Left: Femur Synthes [id number] 03/04/2029 298.801.0 1S / / [id number] Procedures Procedure Name Priority Date/Time Associated Diagnosis [...] Payer ( fective 2000-Present) Name:Esdras Gu Member ID:[id number] Relation to Subscriber:Self Name:Esdras Gu Subscriber ID:[id number] Payer ID:[id number] Group ID:Not on file Type:MEDICARE TRADITIONAL Address: [place] [phone] [employer] SENIOR SUPPLEMENT MEDICARE [facility] Address: [address] [address] [employer] SENIOR SUPPLEMENT Advance Directives For more information, please contact: [phone] Documents on File Type Date Recorded Patient Land Measurer Expl anation ADVANCE DIRECTIVE 08/16/2024 11:29 AM [employer] EMPLOYEE ADVANCE DIRECTIVE 07/24/2024 1:55 PM Power of Manager Leasing-Medical * Full Code (Latest Code Status on File) Date Activated Date Inactivated Comments 07/23/2024 10:40 PM 07/26/2024 10:36 PM Care Teams Fermenter Champagne Relationship Specialty Start Date End Date Dave Tinajero MD [address] [facility] [place] [address] PCP - General 04/19/14
--- OUTSIDE RECORDS SUMMARY | 2024-11-28 20:22 | XMS_ITS | Encounter Summary ---
Author Organization [facility] Address [address] [facility] [place] [address] Care Team Providers Care Cath Lab Manager Name Role Phone Unavailable Primary Care Provider Unavailabl e Encounter Details Date Type Department Care Team (Late st Contact Info) Description 07/27/2024 Lab Requisition [facility] [address] [place] [address] Dougie Dang, [address] [place], [place] [id number] Social History Tobacco Use Types Packs/Day Years Used Date Smoking Tobacco: Never Assessed Sex and Gender Information Value Date Recorded Sex Assigned at Not on file Legal Sex Male 6:27 AM BRAND COORDINATOR Gender Identity Not on file Sexual Orientation Not on file documented as of this encounter Plan of Treatment Not on file documented as of this encounter Procedures Procedure Name Priority Date/Time Associated Diagnosis Comments CBC W AUTO DIFFERENTIAL STAT 07/27/2024 5:00 PM BRAND COORDINATOR COMPREHENSIVE METABOLIC PANEL STAT 07/27/2024 5:00 PM BRAND COORDINATOR documented in this encounter Results * (ABNORMAL) COMPREHENSIVE METABOLIC PANEL (07/27/2024 5:00 PM BRAND COORDINATOR) Glucose 111(H) 70 - 99 mg/dL 07/27/2024 6:55 PM BRAND COORDINATOR [facility] Sodium 137 136 - 145 mmol/L 07/27/2024 6:55 PM BRAND COORDINATOR [facility] Potassium 4.7 3.5 - 5.1 mmol/L 07/27/2024 6:55 PM BRAND COORDINATOR [facility] Chloride 107 98 - 107 mmol/L 07/27/2024 6:55 PM BRAND COORDINATOR [facility] CO2 22 22 - 29 mmol/L 07/27/2024 6:55 PM BRAND COORDINATOR [facility] Calcium 8.4 8.4 - 10.4 mg/dL 07/27/2024 6:55 PM [facility] Anion Gap 8 6 - 16 mmol/L 07/27/2024 6:55 PM [facility] BUN 28(H) 7 - 26 mg/dL 07/27/2024 6:55 PM [facility] Creatinine 0.79 0.72 - 1.25 mg/dL 07/27/2024 6:55 PM [facility] Alkaline Phosphatase 60 40 - 150 U/L 07/27/2024 6:55 PM [facility] ALT 8 0 - 55 U/L 07/27/2024 6:55 PM [facility] AST 38(H) 5 - 34 U/L 07/27/2024 6:55 PM [facility] Protein Total 5.6(L) 6.4 - 8.3 gm/dL 07/27/2024 6:55 PM [facility] Albumin 2.6(L) 3.4 - 5.0 gm/dL 07/27/2024 6:55 PM [facility] Bilirubin Total 1.3(H) 0.2 - 1.2 mg/dL 07/27/2024 6:55 PM [facility] eGFR by CKD-EPI 85(L) >=90 mL/min/1.7 3 m2 07/27/2024 6:55 PM [facility] Blood BLOOD SPECIMEN / Unknown Venipuncture / Unknown 07/27/2024 5:00 PM BRAND COORDINATOR 07/27/2024 6:01 PM [facility] Dougie Dang DO LAB - CHEMISTRY ORDERABLES Final Result [facility] [address] [place] [address] * (ABNORMAL) CBC WITH DIFFERENTIAL (07/27/2024 5:00 PM [facility]) WBC 8.5 4.0 - 10.7 x10E9/L 07/27/2024 6:16 PM [facility] RBC Count 2.64(L) 4.30 - 5.80 x10E12/L 07/27/2024 6:16 PM [facility] Hemoglobin 9.0(L) 13.3 - 17.5 g/dL 07/27/2024 6:16 PM [facility] Hematocrit 27.6(L) 38.7 - 51.1 % 07/27/2024 6:16 PM [facility] MCV 104.5(H) 80.0 - 98.0 fL 07/27/2024 6:16 PM [facility] MCH 34.1(H) 26.7 - 33.6 pg 07/27/2024 6:16 PM [facility] MCHC 32.6 31.7 - 36.3 g/dL 07/27/2024 6:16 PM [facility] RDW-CV 13.7 11.3 - 14.8 % 07/27/2024 6:16 PM [facility] Platelet Count 104(L) 150 - 420 x10E9/L 07/27/2024 6:16 PM [facility] MPV 11.5(H) 7.8 - 11.4 fL 07/27/2024 6:16 PM [facility] Neutrophil % 64.9 41.0 - 74.0 % 07/27/2024 6:16 PM [facility] Lymphocyte % 19.8 17.0 - 47.0 % 07/27/2024 6:16 PM [facility] Monocyte % 12.1(H) 3.0 - 11.0 % 07/27/2024 6:16 PM [facility] Eosinophil % 2.2 0.0 - 7.0 % 07/27/2024 6:16 PM [facility] Basophil % 0.5 0.0 - 1.6 % 07/27/2024 6:16 PM [facility] Immature Granulocytes % 0.5 0.0 - 1.0 % 07/27/2024 6:16 PM [facility] Neutrophil Absolute 5.53 1.60 - 7.50 x10E9/L 07/27/2024 6:16 PM [facility] Lymphocyte Absolute 1.69 1.00 - 4.40 x10E9/L 07/27/2024 6:16 PM [facility] Monocyte Absolute 1.03(H) 0.15 - 1.00 x10E9/L 07/27/2024 6:16 PM [facility] Eosinophil Absolute 0.19 0.00 - 0.60 x10E9/L 07/27/2024 6:16 PM BRAND COORDINATOR [facility] Basophil Absolute 0.04 0.00 - 0.13 x10E9/L 07/27/2024 6:16 PM BRAND COORDINATOR [facility] NRBC 0.7(H) <=0.0 /100 WBC 07/27/2024 6:16 PM BRAND COORDINATOR [facility] Blood BLOOD SPECIMEN / Unknown Venipuncture / Unknown 07/27/2024 5:00 PM BRAND COORDINATOR 07/27/2024 6:01 PM BRAND COORDINATOR Dougie Dang DO LAB - HEMATOLOGY ORDERABLES Ginny berumen Result Performing Organization Address City/State/[facility] Co de Phone Number [facility] [address] [place] [address] documented in this encounter Visit Diagnoses Not on filedocumented in this encounter
--- OUTSIDE RECORDS SUMMARY | 2024-11-28 20:23 | XMS_ITS | Clinical Summary ---
Author Organization [facility] Address [address] [place] [address] Care Team Providers Care Homeworker Name Role Phone Unavailable Primary Care Provider Unavailabl e Source Comments [facility],non-owned Affiliates and Associated Physician Practices is amultiple site organization consisting of ambulatory clinics and hospital sitesin [place], [place], [place]. This disclosure is being madepursuant to the Care Everywhere program and may not contain all information available regarding this patient. Last updated 18.[facility] Social History Tobacco Use Types Packs/Day Years Used Date Smoking Tobacco: Never Assessed Sex and Gender Information Value Date Recorded Sex Assigned at Not on file Legal Sex Male 6:27 AM MANAGER MANAGING Gender Identity Not on file Sexual Orientation [...]
--- OUTSIDE RECORDS SUMMARY | 2024-11-28 20:23 | XMS_ITS | Clinical Summary ---
Author Organization [facility] [address] Address [address] [place] [address] Care Team Providers Care Traffic Sergeant Name Role Phone Dave Tinajero MD Primary Care Provider [phone] Allergies No known active allergies Medications aspirin [...] 07/24/2024 Assessment & Plan (07/26/2024 2:34 PM PRODUCT MARKETING COORDINATOR): - Holding lisinopril for OR, resume as appropriate - Vital signs q4h 07/26 VSS, resume lisinopril at dispo HLD (hyperlipidemia) 07/24/2024 Assessment & Plan (07/24/2024 9:36 AM PRODUCT MARKETING COORDINATOR): - Continue Crestor CAD (coronary artery disease) 07/24/2024 Assessment & Plan (07/26/2024 2:33 PM PRODUCT MARKETING COORDINATOR): - Cardiology consult per IPAP - s/p [...] 07/24/2024 Assessment & Plan (07/26/2024 2:32 PM PRODUCT MARKETING COORDINATOR): - Tylenol 1000 mg q6h - Robaxin 500 mg TID - Oxycodone 2.5 mg q4h PRN -07/26 pain controlled; PO pain meds; wean as able after discharge > no oxy x 24hr; no Rx at dispo Discharge planning issues 07/24/2024 Assessment & Plan (07/26/2024 2:34 PM PRODUCT MARKETING COORDINATOR): - 07/24: OR today with Orthopedics - 07/25: Pending PT/OT evaluations -07/26 Patient is medically stable for discharge, SW/CM updated. Discharge pending facility acceptance - daughter OK with either SNF v rehab > dispo today Elevated bilirubin 07/24/2024 Assessment & Plan (07/26/2024 2:34 PM PRODUCT MARKETING COORDINATOR): - Trend LFTs - Bilirubin trend 1.8-1.5 - CMP daily -07/26 Tbili 0.8, no abdominal pain, tolerating diet > CONSIDER RESOLVED Encounter for medication review 07/24/2024 Assessment & Plan (07/24/2024 10:02 AM PRODUCT MARKETING COORDINATOR): - 07/24: Home medications reviewed via chart review New onset a-fib 07/24/2024 Assessment & Plan (07/26/2024 2:35 PM PRODUCT MARKETING COORDINATOR): - EKG on admission with atrial fibrillation [...] 07/23/2024 Assessment & Plan (07/26/2024 2:36 PM PRODUCT MARKETING COORDINATOR): #acute minimally displaced periprosthetic left femur fracture [...] Description 11/01/2024 11:40 AM CDT Office Visit [facility] Orth[facility] Surgery [address] [place] [address] Advanced Medicine 6th [place] [address] [place] [address] Laisha Ferrara MD 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, initial encounter (Primary Dx) 11/01/2024 11:15 AM CDT - 11/01/2024 11:59 PM CDT Hospital Encounter [facility] [address] [place] [address] Laisha Ferrara MD 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, initial encounter Discharge Disposition: Discharge to home or self care 09/20/2024 1:30 PM CDT Office Visit [facility] Orth[facility] [address] [facility] Advanced Medicine 6th [place] [address] [place] [address] Laisha Ferrara MD 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, initial encounter (Primary Dx) 09/20/2024 1:21 PM CDT - 09/20/2024 11:59 PM CDT Hospital Encounter [facility] [place] [facility] ([facility] [address] [place] [address] Laisha Ferrara MD 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, initial encounter Discharge Disposition: Discharge to home or self care from Last 3 Months Surgical History Surgery Date Site/Laterality Comments TOTAL HIP ARTHROPLASTY Bilateral Total Hip Replacement TOTAL HIP ARTHROPLASTY Medical History Medical History Date Comments Hypertension High cholesterol NM (myocardial infarction) (HCC) Social History Tobacco Use [...] on file Legal Sex Male 1:56 AM PRODUCT MARKETING COORDINATOR Gender Identity Not on file Sexual Orientation Not on file Obstetrics History Last Filed Vital Signs Vital Sign Reading Time Taken Comments Blood Pressure 140/61 07/26/2024 3:30 PM PRODUCT MARKETING COORDINATOR Pulse 75 07/26/2024 3:30 PM PRODUCT MARKETING COORDINATOR Temperature 36.6 C (97.9 F) 07/26/2024 3:30 PM PRODUCT MARKETING COORDINATOR Respiratory Rate 20 07/26/2024 3:30 PM PRODUCT MARKETING COORDINATOR Oxygen Saturation 97% 07/26/2024 3:30 PM PRODUCT MARKETING COORDINATOR Inhaled Oxygen Concentration - - Weight 78.2 kg (172 lb 6.4 oz) 07/23/2024 10:55 PM PRODUCT MARKETING COORDINATOR Height 182.9 cm (6') 07/23/2024 10:55 PM PRODUCT MARKETING COORDINATOR Body Mass Index 23.38 07/23/2024 10:55 PM PRODUCT MARKETING COORDINATOR Plan of Treatment Health Maintenance Due Date [...] history exists Medical Devices Implanted Type Area Sugar Cane Planting Equipment Operator Device Identifier Shelf Expiration Date Model / Serial / Lot Synthes Plate Bone Ring Attachment Small Left 3.5mm 02.221.101s - [id number] Implanted:Qty: 1 on 07/24/2024 by Laisha Ferrara MD at [facility] Plate Left: Femur Synthes I 02.221.101 S / / Synthes 3.5mm 44mm Self Tap Lock Variable Angle Stardrive T15 Screw Bone 02.127.144 - [id number] Implanted:Qty: 1 on 07/24/2024 by Laisha Ferrara MD at [facility] Screw Left: Femur Synthes I 02.127.144 / / Synthes Screw Bone Compression St Full Thread Locking Lcp Va 3.5x54mm Ss 02.127.154 - [id number] Implanted:Qty: 1 on 07/24/2024 by Laisha Ferrara MD at [facility] Screw Left: Femur Synthes 02.127.154 / / Synthes 3.5mm 46mm Self Tap Lock Variable Angle Stardrive T15 Screw Bone 02.127.146 - [id number] Implanted:Qty: 1 on 07/24/2024 by Laisha Ferrara MD at [facility] Screw Left: Femur Synthes I 02.127.146 / / Synthes Screw Bone Cortical St Full Thread T15 Stardrive Lcp 3.5x30mm Ss 02.200.030 - [id number] Implanted:Qty: 1 on 07/24/2024 by Laisha Ferrara MD at [facility] Screw Left: Femur Synthes 02.200.030 / / Synthes Screw Bone Cortical St Full Thread T15 Stardrive Lcp 3.5x32mm Ss 02.200.032 - [id number] Implanted:Qty: 1 on 07/24/2024 by Laisha Ferrara MD at [facility] Screw Left: Femur Synthes 02.200.032 / / Synthes 1.7mm 750mm Crimp Cerclage Cable Orthopedic Stainless Steel 298.801.01s - [id number] Implanted:Qty: 1 on 07/24/2024 by Jean Jimenez MD at [facility] Left: Femur Synthes [id number] 03/04/2029 298.801.01 S / / [id number] Synthes 5mm 44mm Variable Angle Self Tap Lock Stardrive Condylar T25 02.231.244 - [id number] Implanted:Qty: 1 on 07/24/2024 by Laisha Ferrara MD at [facility] Left: Femur Synthes 02.231.244 / / Synthes 5mm 40mm Variable Angle Self Tap Lock Stardrive Condylar T25 02.231.240 - [id number] Implanted:Qty: 1 on 07/24/2024 by Laisha Ferrara MD at [facility] Left: Femur Synthes 02.231.240 / / Synthes 3.5mm 40mm Self Tap Lock Variable Angle Stardrive T15 Screw Bone 02.127.140 - [id number] Implanted:Qty: 1 on 07/24/2024 by Laisha Ferrara MD at [facility] Left: Femur Synthes I 02.127.140 / / Synthes Screw 3.5mm 52mm Bone Stainless Steel T15 Strdrv Rces Lkng 02.127.152 - [id number] Implanted:Qty: 1 on 07/24/2024 by Laisha Ferrara MD at [facility] Left: Femur Synthes I 02.127.152 / / Synthes 3.5mm 6mm 28mm Self Tap Low Profile Stardrive Cortex T15 Full 02.200.028 - [id number] Implanted:Qty: 1 on 07/24/2024 by Laisha Ferrara MD at [facility] Left: Femur Synthes 02.200.028 / / Synthes 3.5mm 50mm Self Tap Lock Variable Angle Stardrive T15 Screw Bone 02.127.150 - [id number] Implanted:Qty: 1 on 07/24/2024 by Laisha Ferrara MD at [facility] Left: Femur Synthes I 02.127.150 / / [employer] Suture Fiberwire 2-0 38in Blue Non Absorbable Ar-[id number] - [id number] Implanted:Qty: 2 on 07/24/2024 by Jean Jimenez MD at [facility] Left: Femur [employer] AR-[id number] / / Synthes Plate Bone 12 Hole Left 3.5/4.5mm 02.221.131s - [id number] Implanted:Qty: 1 on 07/24/2024 by Laisha Ferrara MD at [facility] Left: Femur Synthes I [id number] 07/04/2032 02.221.131 S / / [id number] Synthes 4.5mm 8mm 40mm Self Tap Large Hexagonal Socket Cortex Screw Bone 214.840 - [id number] Implanted:Qty: 1 on 07/24/2024 by Laisha Ferrara MD at [facility] Left: Femur Synthes 214.840 / / Synthes 4.5mm 8mm 52mm Self Tap Large Hexagonal Socket Cortex Screw Bone 214.852 - [id number] Implanted:Qty: 1 on 07/24/2024 by Laisha Ferrara MD at [facility] Left: Femur Synthes 214.852 / / Synthes 4.5mm 8mm 38mm Self Tap Large Hexagonal Socket Cortex Screw Bone 214.838 - [id number] Implanted:Qty: 2 on 07/24/2024 by Laisha Ferrara MD at [facility] Left: Femur Synthes 214.838 / / Synthes 4.5mm 8mm 76mm Self Tap Large Hexagonal Socket Cortex Screw Bone 214.876 - [id number] Implanted:Qty: 1 on 07/24/2024 by Laisha Ferrara MD at [facility] Left: Femur Synthes 214.876 / / Synthes 4.5mm 8mm 46mm Self Tap Large Hexagonal Socket Cortex Screw Bone 214.846 - [id number] Implanted:Qty: 2 on 07/24/2024 by Laisha Ferrara MD at [facility] Left: Femur Synthes 214.846 / / Explanted Type Area Sugar Cane Planting Equipment Operator Device Identifier Shelf Expiration Date Model / Serial / Lot Synthes 3.5mm 40mm Self Tap Lock Variable Angle Stardrive T15 Screw Bone 02.127.140 - [id number] Explanted:Qty: 1 on 07/24/2024 by Jean Jimenez MD at [facility] Left: Femur Synthes I 02.127.14 0 / / Synthes 3.5mm 50mm Self Tap Lock Variable Angle Stardrive T15 Screw Bone 02.127.150 - [id number] Explanted:Qty: 1 on 07/24/2024 at [facility] Left: Femur Synthes I 02.127.15 0 / / [employer] Steinmann 5/64in 9in Trocar Point One End Pin Fixation Stainless 1620-509ns - [id number] Explanted:Qty: 1 on 07/24/2024 by Laisha Ferrara MD at [facility] Left: Femur [employer] [id number] S / / Synthes 1.7mm 750mm Crimp Cerclage Cable Orthopedic Stainless Steel 298.801.01s - [id number] Explanted:Qty: 1 on 07/24/2024 by Jean Jimenez MD at [facility] Left: Femur Synthes [id number] 03/04/2029 298.801.0 1S / / [id number] Procedures Procedure Name Priority Date/Time Associated Diagnosis [...] Advance Directives For more information, please contact: [phone] Documents on File Type Date Recorded Patient Information Coder Expl anation ADVANCE DIRECTIVE 08/16/2024 11:29 AM [employer] WORKMAN ADVANCE DIRECTIVE 07/24/2024 1:55 PM Power of Disabilities Caregiver-Medical * Full Code (Latest Code Status on File) Date Activated Date Inactivated Comments 07/23/2024 10:40 PM 07/26/2024 10:36 PM Care Teams Traffic Sergeant Relationship Specialty Start Date End Date Dave Tinajero MD [address] [place] [address] PCP - General 04/19/14
[2024-11-28] MEDS: FIDAXOMICIN 200 MG TABLET PO (20:34)
[2024-11-28] MEDS: LACTATED RINGERS 1,000 ML 999 ML IV CONT (21:14)
[2024-11-28] MEDS: DICYCLOMINE HCL 10 MG CAPSULE 20 MG PO (21:14)
[2024-11-28 22:14] VITALS: BP 125/65; PULSE 75; RESP 20; O2SAT 100
[2024-11-28 22:55] LABS: Add Urine Microscopic? YES; Appearance Urine Cloudy (Clear); Bacteria Urine None Seen /hpf; Bilirubin Urine Negative (Negative); Blood Urine Negative (Negative); Budding Yeast Urine Present /hpf; Color Urine Yellow (Yellow); Glucose Urine UA Negative (Negative); Hyaline Casts Urine Present /lpf; Ketones Urine Trace mg/dL (Negative); Leukocyte Esterase Ur Negative LEU/UL (Negative); Need Manual Microscopic Reviewed; Nitrate Urine Negative (Negative); Non Pathogenic Casts >20; Protein Urine 1+ mg/dL (Negative); Specific Grav Ur > 1.045 (1.001-1.035); Squamous Epithelial Cell Urine None Seen /hpf (Few); WBC Urine 0-5 /hpf (0-3); pH Urine 5.5 (5.0-9.0)
[2024-11-28] MEDS: LACTATED RINGERS 1,000 ML 125 ML IV CONT (23:17)
[2024-11-28 23:23] VITALS: BP 122/72; PULSE 75; RESP 22; O2SAT 96
[2024-11-28 23:24] VITALS: BP 122/72; PULSE 77; RESP 20; O2SAT 96
[2024-11-29 00:50] VITALS: BMI 18.9; BMI 23.3
--- NOTE | 2024-11-29 00:50 | ADMGEN ---
This patient, Esdras Gu, was admitted to Medical Room 254-01. Patient/family oriented to hospital policies and general routines including ID bracelet, bed and alarms, visiting hours, pain management, procedures, bathroom and other care routines, personal items, smoking policy, room service/diet, and visiting hours. Information on how to activate the Rapid Response Team has been discussed. Patient/Family are encouraged to report perceived risks to care and to ask questions if they do not understand what they are told or what they should do.
[2024-11-29 01:00] VITALS: BP 134/42; PULSE 61; RESP 18; TEMP 36.4; O2SAT 94
[2024-11-29 06:00] VITALS: BP 138/69; PULSE 85; RESP 18; TEMP 36.4; O2SAT 92
[2024-11-29] MEDS: LACTATED RINGERS 1,000 ML 125 ML IV CONT ×2 (08:26→16:32)
--- NOTE | 2024-11-29 08:26 | PM.IMHP ---
H&P: HPI History of Present Illness Date/Time: 11/29/24 08:26 Chief Complaint: Diarrhea Narrative: This is an 89-year-old male who presents to the ED with diarrhea for past 1 week. Reports multiple episodes every day. Had poor p.o. intake. Tried Imodium. No rectal bleeding or melena. Had some abdominal pain which has now resolved. No nausea vomiting. No fever. He was recently in a rehab facility after hospitalization for hip fracture in July 2024. Review of Systems Review of Systems: - CONSTITUTIONAL: Denies weight loss, fever and chills. - HEENT: Denies changes in vision and hearing - RESPIRATORY: Denies SOB and cough. - CV: Denies palpitations and CP. - GI: Reports abdominal pain, denies nausea, vomiting and reports diarrhea. - : Denies dysuria and urinary frequency. - MSK: Denies myalgia and joint pain. - SKIN: Denies rash and pruritus. - NEUROLOGICAL: Denies headache and syncope. - PSYCHIATRIC: Denies recent changes in mood. Denies anxiety and depression. 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 Vee at [facility] Surgical History Surgical History History of bilateral hip replacements Left: May 2001. Right: July 2001. History of basal cell carcinoma excision History of heart artery stent X2 History of orthopedic surgery Right foot reconstruction around 1969. Family History Family History Other Heart disease Hypertension Social History Social History Social History: Surrogate decision maker: Janeth Christianson, daughter. Code status: Full code. 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 Smoking packs per day: 4 Smoking cigarettes per day: 80.0 Years smoked: 15 Smoking pack-years: 60.00 Smoking status: Former smoker Tobacco type: cigarettes Smoking end date: 07/05/1960 Additional smoking assessment comments: Quit smoking at age 26. Alcohol intake: current Substance use: never Do You Feel Safe in your Home?: Yes Lack of Transportation: No Lack of Food: Never True Current Housing: I Have Housing Concerned About Future Housing: No Difficulty Paying Gas/Electric Bills: No Difficulty Paying for Meds: No Currently Unemployed: No Education: Grade School Difficulty w/ Childcare or Family Care: No Living arrangements: with family Additional living arrangements comments: The patient lives with his daughter and son-in-law in [place]. Occupation/Education: retired Gender identity (if verbalized by the patient): Male Sexual Orientation (if Verbalized by the Patient): Straight or Heterosexual Spiritual care concerns: No Meds Home Medications and Allergies Home Medications ?Medication ?Instructions ?Recorded ?Confirmed ?Type aspirin 325 mg tablet 325 mg PO DAILY 04/23/21 11/29/24 History vit C 250 mg-vit E 90 mg-zinc 40 1 tablet PO BID 05/18/23 11/29/24 History mg-copper 1 [id number] capsule (PreserVision AREDS-2) lisinopril 20 mg tablet 20 mg PO DAILY #90 tabs 09/10/24 11/29/24 Rx rosuvastatin 20 mg tablet 20 mg PO HS #90 tabs 09/10/24 11/29/24 Rx Allergies Allergy/AdvReac Type Severity Reaction Status Date / Time No Known Allergies Allergy Mild Verified 11/28/24 16:02 Vital Signs Vital Signs - 24 hr 11/28/24 16:05 11/28/24 19:28 11/28/24 20:15 Temperature 97.6 F 98.6 F Pulse Rate 94 79 80 Respiratory Rate 16 16 18 Blood Pressure 105/56 L 118/66 135/66 Pulse Oximetry 98 100 100 Oxygen Delivery Room Air Room Air 11/28/24 22:14 11/28/24 23:23 11/28/24 23:24 Temperature Pulse Rate 75 75 77 Respiratory Rate 20 22 H 20 Blood Pressure 125/65 122/72 122/72 Pulse Oximetry 100 96 96 Oxygen Delivery 11/29/24 01:00 11/29/24 06:00 Temperature 97.6 F 97.6 F Pulse Rate 61 85 Respiratory Rate 18 18 Blood Pressure 134/42 L 138/69 Pulse Oximetry 94 92 Oxygen Delivery Exam Narrative: GENERAL: Elderly and frail, not in any acute physical distress HEAD: [Normocephalic, atraumatic.] EYES: [PERRLA and EOMI.] ENT: Nares clear, no rhinorrhea or epistaxis. Mucous membranes moist. NECK: Supple. CHEST: [Clear to auscultation. No respiratory distress.] HEART: [Regular rate and rhythm]. No murmur heard. [Normal peripheral pulses.] ABDOMEN: [Soft, nondistended], nontender, [No rigidity or guarding] EXTREMITIES: Normal range of motion. [No edema.] SKIN: Warm, dry, no rash. NEURO: [No focal deficits]. Alert and oriented [x3.] PSYCH: [Normal mood and affect.] H&P: Results Labs Labs: Short CBC 11/28/24 Range/Units 17:45 WBC 12.2 H (4.5-10.0) K/mm3 Hgb 14.7 (14.0-18.0) g/dL Hct 47.5 (42.0-52.0) % Plt Count 214 D (150-375) k/mm3 BMP 11/28/24 19:26 Sodium 138 Potassium 4.6 Chloride 105 Carbon Dioxide 23 BUN 32 H Creatinine 1.05 Glucose 111 H Calcium 9.8 Liver Function 11/28/24 Range/Units 19:26 Total Bilirubin 2.6 H (0.2-1.3) mg/dL AST 30 (17-59) U/L ALT 22 (6-50) U/L Alkaline Phosphatase 130 H (38-126) U/L Albumin 4.4 (3.5-5.1) g/dL Urine 11/28/24 Range/Units 22:11 Urine Color Yellow (Yellow) Urine Appearance Cloudy H (Clear) Urine pH 5.5 (5.0-9.0) Ur Specific [place] > 1.045 H (1.001-1.035) Urine Protein 1+ H (Negative) mg/dL Urine Glucose (UA) Negative (Negative) mg/dL Assessment and Plan Assessment and plan (1) C. difficile colitis: Code(s): A04.72 - Enterocolitis due to Clostridium difficile, not specified as recurrent Status: Acute (2) Hyperlipidemia: Qualifiers: Hyperlipidemia type: mixed hyperlipidemia Qualified Code(s): E78.2 - Mixed hyperlipidemia Code(s): E78.5 - Hyperlipidemia, unspecified Status: Acute (3) Atherosclerosis of both carotid arteries: Code(s): I65.23 - Occlusion and stenosis of bilateral carotid arteries Status: Acute (4) Coronary artery disease: Qualifiers: Coronary Disease-Associated Artery/Lesion type: [place] artery [place] vs. transplanted heart: [place] heart Associated angina: without angina Qualified Code(s): I25.10 - Atherosclerotic heart disease of [place] coronary artery without angina pectoris Code(s): I25.10 - Atherosclerotic heart disease of [place] coronary artery without angina pectoris Status: Acute (5) Nonrheumatic mitral valve regurgitation: Code(s): I34.0 - Nonrheumatic mitral (valve) insufficiency Status: Acute (6) Hypertension: Qualifiers: Hypertension type: primary hypertension Qualified Code(s): I10 - Essential (primary) hypertension Code(s): I10 - Essential (primary) hypertension Status: Acute (7) Primary generalized (osteo)arthritis: Code(s): M15.0 - Primary generalized (osteo)arthritis Status: Acute Plan This is an 89-year-old male who presents to the ED with diarrhea for past 1 week. Reports multiple episodes every day. Had poor p.o. intake. Tried Imodium. No rectal bleeding or melena. Had some abdominal pain which has now resolved. No nausea vomiting. No fever. He was recently in a rehab facility after hospitalization for hip fracture in July 2024. Vitals were stable. Laboratory workup revealed WBC of 12.2 hemoglobin of 14.7 platelet of 214. Chem panel was unremarkable except for mildly elevated bilirubin 2.6. Urinalysis showed urine WBC of 0 to 5 urine RBC of 6-10 with more than [address] abdomen pelvis showed no evidence of appendicitis diverticulitis or intestinal obstruction. Thickened wall of the rectosigmoid area with surrounding fat stranding suggestive of proctitis with possible inflammatory bowel disease. Clinical correlation advised. Thickened wall of the gallbladder suggestive of cystitis. C diff test came back positive. Received a dose of fidaxomicin will continue fidaxomicin for 10 days. 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 No anticoagulation due to falls. Coronary artery disease status post RCA stenting 2003. Bilateral carotid artery stenosis Recurrent falls Hypertension Hyperlipidemia Disposition PT OT to see Code status do not resuscitate Hospitalist MIPS Advance Care Plan I have confirmed that the patient's Advanced Care Plan is present, code status is documented, or surrogate decision maker is listed in patient medical record.: Yes Medication Reconciliation I have utilized all available resources to obtain, update and review the patients current medications (includes all prescriptions, OTC, herbals, cannabis, and nutritional supplements).: Yes
[2024-11-29] MEDS: lisinopriL 20 MG TABLET PO (08:47)
[2024-11-29] MEDS: OPTI-GEN TAB 1 TABLET PO ×2 (08:47→17:16)
[2024-11-29] MEDS: FIDAXOMICIN 200 MG TABLET PO ×2 (08:47→20:55)
[2024-11-29] MEDS: ASPIRIN 325 MG TABLET PO (08:47)
[2024-11-29 14:00] VITALS: BP 124/56; PULSE 70; RESP 16; TEMP 36.3; O2SAT 9
[2024-11-29] MEDS: ROSUVASTATIN 20 MG TABLET PO (20:55)
[2024-11-29 21:18] VITALS: BP 139/65; PULSE 74; RESP 18; TEMP 36.3; O2SAT 98
[2024-11-30] MEDS: LACTATED RINGERS 1,000 ML 125 ML IV CONT ×2 (01:30→10:07)
[2024-11-30 05:28] VITALS: BP 133/62; PULSE 71; RESP 18; TEMP 36.4; O2SAT 99
[2024-11-30 08:10] LABS: Basophils Absolute Auto 0.1 K/mm3 (0.0-0.1); Basophils Percent Auto 0.6 % (0.2-1.2); Eosinophils Absolute Auto 0.1 K/mm3 (0-0.3); Eosinophils Percent Auto 1.7 % (0-4.4); Hematocrit 41.1 % (42.0-52.0); Immature Granulocyte Absolute 0.01 K/mm3 (0.00-0.031); Immature Granulocyte Percent A 0.1 % (0-0.5); Immature Platelet Fraction Pct 4.9 % (0.9-11.2); Lymphocytes Absolute Auto 1.27 K/mm3 (0.9-3.2); Lymphocytes Percent Auto 15.6 % (18.3-44.2); Mean Corpuscular HGB Conc 31.6 g/dl (32-36); Mean Corpuscular Hemoglobin 31.3 pg (26-34); Mean Platelet Volume 11.2 fl (7.4-10.4); Monocytes Absolute Auto 0.9 K/mm3 (0.1-0.6); Monocytes Percent Auto 11.2 % (2.6-8.5); Neutrophils Absolute Auto 5.8 K/mm3 (1.3-6.7); Neutrophils Percent Auto 70.8 % (45.5-73.1); Platelet Count Result 146 k/mm3 (150-375); Red Blood Count 4.15 M/mm3 (4.6-6.20); Red Cell Distribution Width 15.8 % (11.5-14.5); White Blood Count 8.1 K/mm3 (4.5-10.0)
[2024-11-30 08:22] LABS: Alanine Aminotransferase 15 U/L (6-50); Alkaline Phosphatase 89 U/L (38-126); Anion Gap 4 mmol/L (4-12); Aspartate Amino Transferase 25 U/L (17-59); Blood Urea Nitrogen 19 mg/dL (9-20); Calcium 9.1 mg/dL (8.4-10.2); Carbon Dioxide 23 mmol/L (22-30); Chloride 108 mmol/L (98-107); Estimated CRCL calculation 60 ml/min; Estimated Glomerular Filt Rate > 60; Glucose 89 mg/dL (65-110); Magnesium 1.7 mg/dL (1.6-2.3); Potassium 3.9 mmol/L (3.4-5.0); Sodium 135 mmol/L (137-145)
[2024-11-30] MEDS: lisinopriL 20 MG TABLET PO (08:44)
[2024-11-30] MEDS: FIDAXOMICIN 200 MG TABLET PO (08:44)
[2024-11-30] MEDS: ASPIRIN 325 MG TABLET PO (08:44)
[2024-11-30] MEDS: OPTI-GEN TAB 1 TABLET PO ×2 (08:44→17:33)
--- NOTE | 2024-11-30 10:17 | P.PNIM_ITS ---
Progress Note: A&P Assessment and Plan (1) C. difficile colitis: Code(s): A04.72 - Enterocolitis due to Clostridium difficile, not specified as recurrent Status: Acute (2) Hyperlipidemia: Qualifiers: Hyperlipidemia type: mixed hyperlipidemia Qualified Code(s): E78.2 - Mixed hyperlipidemia Code(s): E78.5 - Hyperlipidemia, unspecified Status: Acute (3) Atherosclerosis of both carotid arteries: Code(s): I65.23 - Occlusion and stenosis of bilateral carotid arteries Status: Acute (4) Coronary artery disease: Qualifiers: Coronary Disease-Associated Artery/Lesion type: [place] artery [place] vs. transplanted heart: [place] heart Associated angina: without angina Qualified Code(s): I25.10 - Atherosclerotic heart disease of [place] coronary artery without angina pectoris Code(s): I25.10 - Atherosclerotic heart disease of [place] coronary artery without angina pectoris Status: Acute (5) Nonrheumatic mitral valve regurgitation: Code(s): I34.0 - Nonrheumatic mitral (valve) insufficiency Status: Acute (6) Hypertension: Qualifiers: Hypertension type: primary hypertension Qualified Code(s): I10 - Essential (primary) hypertension Code(s): I10 - Essential (primary) hypertension Status: Acute (7) Primary generalized (osteo)arthritis: Code(s): M15.0 - Primary generalized (osteo)arthritis Status: Acute Plan This is an 89-year-old male who presents to the ED with diarrhea for past 1 week. Reports multiple episodes every day. Had poor p.o. intake. Tried Imodium. No rectal bleeding or melena. Had some abdominal pain which has now resolved. No nausea vomiting. No fever. He was recently in a rehab facility after hospitalization for hip fracture in July 2024. Vitals were stable. Laboratory workup revealed WBC of 12.2 hemoglobin of 14.7 platelet of 214. Chem panel was unremarkable except for mildly elevated bilirubin 2.6. Urinalysis showed urine WBC of 0 to 5 urine RBC of 6-10 with more than [address] abdomen pelvis showed no evidence of appendicitis diverticulitis or intestinal obstruction. Thickened wall of the rectosigmoid area with surrounding fat stranding suggestive of proctitis with possible inf lammatory bowel disease. Clinical correlation advised. Thickened wall of the gallbladder suggestive of cystitis. C diff test came back positive. Received a dose of fidaxomicin will continue fidaxomicin for 10 days. 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 No anticoagulation due to falls. Coronary artery disease status post RCA stenting 2003. Bilateral carotid artery stenosis Recurrent falls Hypertension Hyperlipidemia Disposition PT OT to see Code status do not resuscitate Subjective Date/time seen: 11/30/24 10:17 Interval history: Feels little better today. Diarrhea still ongoing though. No abdominal pain nausea vomiting. Review of Systems Review of Systems: All systems reviewed & are unremarkable except as noted in HPI and below Exam Narrative: GENERAL: Elderly and frail, not in any acute physical distress HEAD: [Normocephalic, atraumatic.] EYES: [PERRLA and EOMI.] ENT: Nares clear, no rhinorrhea or epistaxis. Mucous membranes moist. NECK: Supple. CHEST: [Clear to auscultation. No respiratory distress.] HEART: [Regular rate and rhythm]. No murmur heard. [Normal peripheral pulses.] ABDOMEN: [Soft, nondistended], nontender, [No rigidity or guarding] EXTREMITIES: Normal range of motion. [No edema.] SKIN: Warm, dry, no rash. NEURO: [No focal deficits]. Alert and oriented [x3.] PSYCH: [Normal mood and affect.] Objective Data Vital Signs Vital Signs: Vital Signs - 24 hr 11/29/24 14:00 11/29/24 20:00 11/29/24 21:18 Temperature 97.3 F L 97.4 F L Pulse Rate 70 74 Respiratory Rate 16 18 Blood Pressure 124/56 L 139/65 Pulse Oximetry 9 L 98 Oxygen Delivery Room Air 11/30/24 05:28 Temperature 97.6 F Pulse Rate 71 Respiratory Rate 18 Blood Pressure 133/62 Pulse Oximetry 99 Oxygen Delivery Intake/Output Intake/Output: Intake & Output 11/27/24 11/28/24 11/29/24 11/30/24 23:59 23:59 23:59 23:59 Intake Total 1000 2600 2320 Balance 1000 2600 2320 Meds/Results Medications: Active Medications Generic Name Dose Route Start Last Admin Trade Name Freq PRN Reason Stop Dose Admin Acetaminophen 650 mg 11/28/24 23:00 Acetaminophen 325 Mg Tablet PO Q4H PRN Mild Pain (1-3) or Fever Aspirin 325 mg 11/29/24 09:00 11/30/24 08:44 Aspirin 325 Mg Tablet PO 325 mg DAILY PRUDENCIO Administration Fidaxomicin 200 mg 11/29/24 09:00 11/30/24 08:44 Fidaxomicin 200 Mg Tablet PO 12/09/24 08:59 200 mg Q12HR PRUDENCIO Administration Lactated Ringer's 1,000 mls @ 125 mls/hr 11/28/24 23:00 11/30/24 10:07 Lr - Lactated Ringers Iv IV CONT 125 mls/hr .Q8H PRUDENCIO Administration Lisinopril 20 mg 11/29/24 09:00 11/30/24 08:44 Lisinopril 20 Mg Tablet PO 20 mg DAILY PRUDENCIO Administration Morphine Sulfate 2 mg 11/28/24 23:00 Morphine Sulfate (*Crx) 2 Mg/Ml Inj IV PUSH Q2H PRN Pain Rated 7-10 Multivitamins/Minerals 1 tablet 11/29/24 09:00 11/30/24 08:44 Opti-Gen Tab PO 1 tablet BID PRUDENCIO Administration Ondansetron HCl 4 mg 11/28/24 23:00 Ondansetron Inj 4 Mg/2 Ml Vial IV PUSH Q4H PRN Nausea Rosuvastatin Calcium 20 mg 11/29/24 21:00 11/29/24 20:55 Rosuvastatin 20 Mg Tablet PO 20 mg HS PRUDENCIO Administration Radiology Results: ITS Impressions Abdomen/Pelvis CT 11/28/24 21:14 IMPRESSION: 1. No evidence of appendicitis, diverticulitis or intestinal obstruction. 2. Thickened wall of the rectosigmoid area with surrounding fat stranding suggestive of proctitis with possible inflammatory bowel disease. Clinical correlation advised. 3. Thickened wall of the gallbladder suggestive of cystitis. Clinical correlation advised. ADDENDUM: 11/28/24 2401 Thickened wall of the urinary bladder suggestive of cystitis. Clinical correlation advised. The gallbladder is normal. Labs Labs: Laboratory Results - last 24 hr 11/30/24 07:56 WBC 8.1 RBC 4.15 L Hgb 13.0 L Hct 41.1 L MCV 99.0 MCH 31.3 MCHC 31.6 L RDW 15.8 H Plt Count 146 L MPV 11.2 H Immature Gran % (Auto) 0.1 Neut % (Auto) 70.8 Lymph % (Auto) 15.6 L [place] % (Auto) 11.2 H Eos % (Auto) 1.7 Baso % (Auto) 0.6 Lymph # (Auto) 1.27 [place] # (Auto) 0.9 H Eos # (Auto) 0.1 Baso # (Auto) 0.1 Abs Immat Gran (auto) 0.01 Absolute Neuts (auto) 5.8 Absolute Nucleated RBC 0.000 Nucleated RBC % 0.0 % Immature Plt Fraction 4.9 Sodium 135 L Potassium 3.9 Chloride 108 H Carbon Dioxide 23 Anion Gap 4 BUN 19 D Creatinine 0.68 L Estim Creat Clear Calc 60 Estimated GFR > 60 Glucose 89 Calcium 9.1 Magnesium 1.7 Total Bilirubin 2.0 H AST 25 ALT 15 Alkaline Phosphatase 89 Total Protein 6.0 L Albumin 3.0 L
[2024-11-30] MEDS: VANCOMYCIN HCL 125 MG ORAL CAPSULE PO ×2 (12:01→17:33)
[2024-11-30 14:00] VITALS: BP 109/56; PULSE 76; RESP 16; TEMP 36.6; O2SAT 98
[2024-11-30] MEDS: ROSUVASTATIN 20 MG TABLET PO (20:17)
[2024-11-30 21:00] VITALS: BP 145/68; PULSE 63; RESP 16; TEMP 36.6; O2SAT 100
[2024-11-30] MEDS: LACTATED RINGERS 1,000 ML 75 ML IV CONT (23:05)
[2024-12-01] MEDS: VANCOMYCIN HCL 125 MG ORAL CAPSULE PO ×4 (00:13→17:30)
[2024-12-01 05:19] LABS: Basophils Absolute Auto 0.1 K/mm3 (0.0-0.1); Basophils Percent Auto 0.7 % (0.2-1.2); Eosinophils Absolute Auto 0.3 K/mm3 (0-0.3); Eosinophils Percent Auto 3.6 % (0-4.4); Hematocrit 40.2 % (42.0-52.0); Hemoglobin 12.8 g/dL (14.0-18.0); Immature Granulocyte Absolute 0.02 K/mm3 (0.00-0.031); Immature Granulocyte Percent A 0.3 % (0-0.5); Immature Platelet Fraction Pct 4.4 % (0.9-11.2); Lymphocytes Absolute Auto 1.65 K/mm3 (0.9-3.2); Lymphocytes Percent Auto 23.4 % (18.3-44.2); Mean Corpuscular HGB Conc 31.8 g/dl (32-36); Mean Corpuscular Hemoglobin 31.4 pg (26-34); Mean Corpuscular Volume 98.8 fl (80-100); Mean Platelet Volume 10.6 fl (7.4-10.4); Monocytes Absolute Auto 0.8 K/mm3 (0.1-0.6); Monocytes Percent Auto 11.1 % (2.6-8.5); Neutrophils Absolute Auto 4.3 K/mm3 (1.3-6.7); Neutrophils Percent Auto 60.9 % (45.5-73.1); Platelet Count Result 141 k/mm3 (150-375); Red Blood Count 4.07 M/mm3 (4.6-6.20); Red Cell Distribution Width 15.7 % (11.5-14.5)
[2024-12-01 05:33] LABS: Alanine Aminotransferase 16 U/L (6-50); Alkaline Phosphatase 88 U/L (38-126); Anion Gap 6 mmol/L (4-12); Aspartate Amino Transferase 28 U/L (17-59); Bilirubin,Total 1.4 mg/dL (0.2-1.3); Blood Urea Nitrogen 19 mg/dL (9-20); Carbon Dioxide 22 mmol/L (22-30); Chloride 108 mmol/L (98-107); Estimated CRCL calculation 55 ml/min; Estimated Glomerular Filt Rate > 60; Glucose 86 mg/dL (65-110); Magnesium 1.7 mg/dL (1.6-2.3); Potassium 3.7 mmol/L (3.4-5.0); Sodium 136 mmol/L (137-145)
[2024-12-01 05:36] VITALS: BP 129/81; PULSE 71; RESP 18; TEMP 36.6; O2SAT 98
[2024-12-01] MEDS: lisinopriL 20 MG TABLET PO (09:01)
[2024-12-01] MEDS: OPTI-GEN TAB 1 TABLET PO ×2 (09:01→17:30)
[2024-12-01] MEDS: ASPIRIN 325 MG TABLET PO (09:01)
[2024-12-01] MEDS: LACTATED RINGERS 1,000 ML 75 ML IV CONT (12:47)
[2024-12-01 14:00] VITALS: BP 154/78; PULSE 74; RESP 20; O2SAT 99
--- NOTE | 2024-12-01 14:03 | P.PNIM_ITS ---
Progress Note: A&P Assessment and Plan (1) C. difficile colitis: Code(s): A04.72 - Enterocolitis due to Clostridium difficile, not specified as recurrent Status: Acute (2) Hyperlipidemia: Qualifiers: Hyperlipidemia type: mixed hyperlipidemia Qualified Code(s): E78.2 - Mixed hyperlipidemia Code(s): E78.5 - Hyperlipidemia, unspecified Status: Acute (3) Atherosclerosis of both carotid arteries: Code(s): I65.23 - Occlusion and stenosis of bilateral carotid arteries Status: Acute (4) Coronary artery disease: Qualifiers: Coronary Disease-Associated Artery/Lesion type: [place] artery [place] vs. transplanted heart: [place] heart Associated angina: without angina Qualified Code(s): I25.10 - Atherosclerotic heart disease of [place] coronary artery without angina pectoris Code(s): I25.10 - Atherosclerotic heart disease of [place] coronary artery without angina pectoris Status: Acute (5) Nonrheumatic mitral valve regurgitation: Code(s): I34.0 - Nonrheumatic mitral (valve) insufficiency Status: Acute (6) Hypertension: Qualifiers: Hypertension type: primary hypertension Qualified Code(s): I10 - Essential (primary) hypertension Code(s): I10 - Essential (primary) hypertension Status: Acute (7) Primary generalized (osteo)arthritis: Code(s): M15.0 - Primary generalized (osteo)arthritis Status: Acute Plan This is an 89-year-old male who presents to the ED with diarrhea for past 1 week. Reports multiple episodes every day. Had poor p.o. intake. Tried Imodium. No rectal bleeding or melena. Had some abdominal pain which has now resolved. No nausea vomiting. No fever. He was recently in a rehab facility after hospitalization for hip fracture in July 2024. Vitals were stable. Laboratory workup revealed WBC of 12.2 hemoglobin of 14.7 platelet of 214. Chem panel was unremarkable except for mildly elevated bilirubin 2.6. Urinalysis showed urine WBC of 0 to 5 urine RBC of 6-10 with more than [address] abdomen pelvis showed no evidence of appendicitis diverticulitis or intestinal obstruction. Thickened wall of the rectosigmoid area with surrounding fat stranding suggestive of proctitis with possible inf lammatory bowel disease. Clinical correlation advised. Thickened wall of the gallbladder suggestive of cystitis. C diff test came back positive. Received a dose of fidaxomicin will continue fidaxomicin for 10 days. Due to cost will switch to vancomycin oral. Continue to monitor bowel movement. 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 No anticoagulation due to falls. Coronary artery disease status post RCA stenting 2003. Bilateral carotid artery stenosis Recurrent falls Hypertension Hyperlipidemia Disposition PT OT to see Code status do not resuscitate Subjective Date/time seen: 12/01/24 14:03 Interval history: No overnight events. Diarrhea slowed down. Still watery. Denies any abdominal pain nausea vomiting. Review of Systems Review of Systems: All systems reviewed & are unremarkable except as noted in HPI and below Exam Narrative: GENERAL: Elderly and frail, not in any acute physical distress HEAD: [Normocephalic, atraumatic.] EYES: [PERRLA and EOMI.] ENT: Nares clear, no rhinorrhea or epistaxis. Mucous membranes moist. NECK: Supple. CHEST: [Clear to auscultation. No respiratory distress.] HEART: [Regular rate and rhythm]. No murmur heard. [Normal peripheral pulses.] ABDOMEN: [Soft, nondistended], nontender, [No rigidity or guarding] EXTREMITIES: Normal range of motion. [No edema.] SKIN: Warm, dry, no rash. NEURO: [No focal deficits]. Alert and oriented [x3.] PSYCH: [Normal mood and affect.] Objective Data Vital Signs Vital Signs: Vital Signs - 24 hr 11/30/24 15:25 11/30/24 20:00 11/30/24 21:00 Temperature 97.9 F Pulse Rate 63 Respiratory Rate 16 Blood Pressure 145/68 H Pulse Oximetry 100 Oxygen Delivery Room Air Room Air 12/01/24 05:36 12/01/24 09:10 Temperature 98 F Pulse Rate 71 Respiratory Rate 18 Blood Pressure 129/81 Pulse Oximetry 98 Oxygen Delivery Room Air Intake/Output Intake/Output: Intake & Output 11/28/24 11/29/24 11/30/24 12/01/24 23:59 23:59 23:59 23:59 Intake Total 1000 2600 3935.0 1590 Output Total 1100 Balance 1000 2600 3935.0 490 Meds/Results Medications: Active Medications Generic Name Dose Route Start Last Admin Trade Name Freq PRN Reason Stop Dose Admin Acetaminophen 650 mg 11/28/24 23:00 Acetaminophen 325 Mg Tablet PO Q4H PRN Mild Pain (1-3) or Fever Aspirin 325 mg 11/29/24 09:00 12/01/24 09:01 Aspirin 325 Mg Tablet PO 325 mg DAILY PRUDENCIO Administration Lactated Ringer's 1,000 mls @ 75 mls/hr 11/28/24 23:00 12/01/24 12:47 Lr - Lactated Ringers Iv IV CONT 75 mls/hr .[id number] PRUDENCIO Administration Lisinopril 20 mg 11/29/24 09:00 12/01/24 09:01 Lisinopril 20 Mg Tablet PO 20 mg DAILY PRUDENCIO Administration Morphine Sulfate 2 mg 11/28/24 23:00 Morphine Sulfate (*Crx) 2 Mg/Ml Inj IV PUSH Q2H PRN Pain Rated 7-10 Multivitamins/Minerals 1 tablet 11/29/24 09:00 12/01/24 09:01 Opti-Gen Tab PO 1 tablet BID PRUDENCIO Administration Ondansetron HCl 4 mg 11/28/24 23:00 Ondansetron Inj 4 Mg/2 Ml Vial IV PUSH Q4H PRN Nausea Rosuvastatin Calcium 20 mg 11/29/24 21:00 11/30/24 20:17 Rosuvastatin 20 Mg Tablet PO 20 mg HS PRUDENCIO Administration Vancomycin HCl 125 mg 11/30/24 12:00 12/01/24 12:47 Vancomycin Hcl 125 Mg Oral Capsule PO 12/10/24 11:59 125 mg Q6HR PRUDENCIO Administration Radiology Results: ITS Impressions Abdomen/Pelvis CT 11/28/24 21:14 IMPRESSION: 1. No evidence of appendicitis, diverticulitis or intestinal obstruction. 2. Thickened wall of the rectosigmoid area with surrounding fat stranding suggestive of proctitis with possible inflammatory bowel disease. Clinical correlation advised. 3. Thickened wall of the gallbladder suggestive of cystitis. Clinical correlation advised. ADDENDUM: 11/28/24 2362 Thickened wall of the urinary bladder suggestive of cystitis. Clinical correlation advised. The gallbladder is normal. Labs Labs: Laboratory Results - last 24 hr 12/01/24 04:54 WBC 7.0 RBC 4.07 L Hgb 12.8 L Hct 40.2 L MCV 98.8 MCH 31.4 MCHC 31.8 L RDW 15.7 H Plt Count 141 L MPV 10.6 H Immature Gran % (Auto) 0.3 Neut % (Auto) 60.9 Lymph % (Auto) 23.4 [place] % (Auto) 11.1 H Eos % (Auto) 3.6 Baso % (Auto) 0.7 Lymph # (Auto) 1.65 [place] # (Auto) 0.8 H Eos # (Auto) 0.3 Baso # (Auto) 0.1 Abs Immat Gran (auto) 0.02 Absolute Neuts (auto) 4.3 Absolute Nucleated RBC 0.000 Nucleated RBC % 0.0 % Immature Plt Fraction 4.4 Sodium 136 L Potassium 3.7 Chloride 108 H Carbon Dioxide 22 Anion Gap 6 BUN 19 Creatinine 0.75 Estim Creat Clear Calc 55 Estimated GFR > 60 Glucose 86 Calcium 9.0 Magnesium 1.7 Total Bilirubin 1.4 H AST 28 ALT 16 Alkaline Phosphatase 88 Total Protein 6.0 L Albumin 3.0 L
--- NOTE | 2024-12-01 14:53 | PCPTNOTE ---
Patient on commode with [employer] when evaluation attempted 1450. Patient states he does not know how long he will take, try therapy tomorrow morning.
[2024-12-01 20:16] VITALS: BP 162/72; PULSE 74; RESP 18; TEMP 36.2; O2SAT 97
[2024-12-01] MEDS: ROSUVASTATIN 20 MG TABLET PO (20:26)
[2024-12-02] MEDS: VANCOMYCIN HCL 125 MG ORAL CAPSULE PO ×5 (00:23→23:48)
[2024-12-02] MEDS: LACTATED RINGERS 1,000 ML 75 ML IV CONT ×2 (02:07→10:36)
[2024-12-02 05:39] LABS: Basophils Absolute Auto 0.1 K/mm3 (0.0-0.1); Basophils Percent Auto 0.8 % (0.2-1.2); Eosinophils Absolute Auto 0.4 K/mm3 (0-0.3); Eosinophils Percent Auto 4.8 % (0-4.4); Hematocrit 38.4 % (42.0-52.0); Hemoglobin 12.4 g/dL (14.0-18.0); Immature Granulocyte Absolute 0.02 K/mm3 (0.00-0.031); Immature Granulocyte Percent A 0.3 % (0-0.5); Immature Platelet Fraction Pct 5.1 % (0.9-11.2); Lymphocytes Absolute Auto 1.54 K/mm3 (0.9-3.2); Lymphocytes Percent Auto 21.3 % (18.3-44.2); Mean Corpuscular HGB Conc 32.3 g/dl (32-36); Mean Corpuscular Hemoglobin 31.2 pg (26-34); Mean Corpuscular Volume 96.5 fl (80-100); Mean Platelet Volume 11.1 fl (7.4-10.4); Monocytes Absolute Auto 0.8 K/mm3 (0.1-0.6); Monocytes Percent Auto 11.2 % (2.6-8.5); Neutrophils Absolute Auto 4.5 K/mm3 (1.3-6.7); Neutrophils Percent Auto 61.6 % (45.5-73.1); Platelet Count Result 141 k/mm3 (150-375); Red Blood Count 3.98 M/mm3 (4.6-6.20); Red Cell Distribution Width 15.6 % (11.5-14.5); White Blood Count 7.2 K/mm3 (4.5-10.0)
[2024-12-02 05:55] LABS: Anion Gap 6 mmol/L (4-12); Blood Urea Nitrogen 17 mg/dL (9-20); Calcium 8.9 mg/dL (8.4-10.2); Carbon Dioxide 23 mmol/L (22-30); Chloride 109 mmol/L (98-107); Estimated CRCL calculation 58 ml/min; Estimated Glomerular Filt Rate > 60; Glucose 84 mg/dL (65-110); Magnesium 1.8 mg/dL (1.6-2.3); Potassium 3.8 mmol/L (3.4-5.0); Sodium 138 mmol/L (137-145)
[2024-12-02 06:00] VITALS: BP 130/65; PULSE 76; RESP 16; TEMP 36.6; O2SAT 93
[2024-12-02 08:00] VITALS: O2SAT 94
[2024-12-02] MEDS: lisinopriL 20 MG TABLET PO (08:39)
[2024-12-02] MEDS: ASPIRIN 325 MG TABLET PO (08:39)
[2024-12-02] MEDS: OPTI-GEN TAB 1 TABLET PO ×2 (08:39→17:37)
--- NOTE | 2024-12-02 12:52 | PM.IMPN ---
Progress Note: A&P Assessment and Plan (1) C. difficile colitis: Code(s): A04.72 - Enterocolitis due to Clostridium difficile, not specified as recurrent Status: Acute (2) Hyperlipidemia: Qualifiers: Hyperlipidemia type: mixed hyperlipidemia Qualified Code(s): E78.2 - Mixed hyperlipidemia Code(s): E78.5 - Hyperlipidemia, unspecified Status: Acute (3) Atherosclerosis of both carotid arteries: Code(s): I65.23 - Occlusion and stenosis of bilateral carotid arteries Status: Acute (4) Coronary artery disease: Qualifiers: Coronary Disease-Associated Artery/Lesion type: [place] artery [place] vs. transplanted heart: [place] heart Associated angina: without angina Qualified Code(s): I25.10 - Atherosclerotic heart disease of [place] coronary artery without angina pectoris Code(s): I25.10 - Atherosclerotic heart disease of [place] coronary artery without angina pectoris Status: Acute (5) Nonrheumatic mitral valve regurgitation: Code(s): I34.0 - Nonrheumatic mitral (valve) insufficiency Status: Acute (6) Hypertension: Qualifiers: Hypertension type: primary hypertension Qualified Code(s): I10 - Essential (primary) hypertension Code(s): I10 - Essential (primary) hypertension Status: Acute (7) Primary generalized (osteo)arthritis: Code(s): M15.0 - Primary generalized (osteo)arthritis Status: Acute Plan This is an 89-year-old male who presents to the ED with diarrhea for past 1 week. Reports multiple episodes every day. Had poor p.o. intake. Tried Imodium. No rectal bleeding or melena. Had some abdominal pain which has now resolved. No nausea vomiting. No fever. He was recently in a rehab facility after hospitalization for hip fracture in July 2024. Vitals were stable. Laboratory workup revealed WBC of 12.2 hemoglobin of 14.7 platelet of 214. Chem panel was unremarkable except for mildly elevated bilirubin 2.6. Urinalysis showed urine WBC of 0 to 5 urine RBC of 6-10 with more than [address] abdomen pelvis showed no evidence of appendicitis diverticulitis or intestinal obstruction. Thickened wall of the rectosigmoid area with surrounding fat stranding suggestive of proctitis with possible inflammatory bowel disease. Clinical correlation advised. Thickened wall of the gallbladder suggestive of cystitis. C diff test came back positive. Received a dose of fidaxomicin will continue fidaxomicin for 10 days. Due to cost will switch to vancomycin oral. Continue to monitor bowel movement. 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 No anticoagulation due to falls. Coronary artery disease status post RCA stenting 2003. Bilateral carotid artery stenosis Recurrent falls Hypertension Hyperlipidemia Disposition PT OT to see Code status do not resuscitate Subjective Date/time seen: 12/02/24 12:52 Interval history: Diarrhea slowed down but still watery. Denies any new complaints. No abdominal pain nausea vomiting. Tolerating diet. Review of Systems Review of Systems: All systems reviewed & are unremarkable except as noted in HPI and below Exam Narrative: GENERAL: Elderly and frail, not in any acute physical distress HEAD: [Normocephalic, atraumatic.] EYES: [PERRLA and EOMI.] ENT: Nares clear, no rhinorrhea or epistaxis. Mucous membranes moist. NECK: Supple. CHEST: [Clear to auscultation. No respiratory distress.] HEART: [Regular rate and rhythm]. No murmur heard. [Normal peripheral pulses.] ABDOMEN: [Soft, nondistended], nontender, [No rigidity or guarding] EXTREMITIES: Normal range of motion. [No edema.] SKIN: Warm, dry, no rash. NEURO: [No focal deficits]. Alert and oriented [x3.] PSYCH: [Normal mood and affect.] Objective Data Vital Signs Vital Signs: Vital Signs - 24 hr 12/01/24 14:00 12/01/24 20:00 12/01/24 20:16 Temperature 97.2 F L Pulse Rate 74 74 Respiratory Rate 20 18 Blood Pressure 154/78 H 162/72 H Pulse Oximetry 99 97 Oxygen Delivery Room Air 12/02/24 06:00 12/02/24 08:00 12/02/24 08:22 Temperature 97.9 F Pulse Rate 76 Respiratory Rate 16 Blood Pressure 130/65 Pulse Oximetry 93 94 Oxygen Delivery Room Air Room Air Intake/Output Intake/Output: Intake & Output 11/29/24 11/30/24 12/01/24 12/02/24 23:59 23:59 23:59 23:59 Intake Total 2600 3935.0 2670 1956.2 Output Total 1500 Balance 2600 3935.0 1170 1956.2 Meds/Results Medications: Active Medications Generic Name Dose Route Start Last Admin Trade Name Freq PRN Reason Stop Dose Admin Acetaminophen 650 mg 11/28/24 23:00 Acetaminophen 325 Mg Tablet PO Q4H PRN Mild Pain (1-3) or Fever Aspirin 325 mg 11/29/24 09:00 12/02/24 08:39 Aspirin 325 Mg Tablet PO 325 mg DAILY PRUDENCIO Administration Lactated Ringer's 1,000 mls @ 75 mls/hr 11/28/24 23:00 12/02/24 10:36 Lr - Lactated Ringers Iv IV CONT 75 mls/hr .[id number] PRUDENCIO Administration Lisinopril 20 mg 11/29/24 09:00 12/02/24 08:39 Lisinopril 20 Mg Tablet PO 20 mg DAILY PRUDENCIO Administration Morphine Sulfate 2 mg 11/28/24 23:00 Morphine Sulfate (*Crx) 2 Mg/Ml Inj IV PUSH Q2H PRN Pain Rated 7-10 Multivitamins/Minerals 1 tablet 11/29/24 09:00 12/02/24 08:39 Opti-Gen Tab PO 1 tablet BID PRUDENCIO Administration Ondansetron HCl 4 mg 11/28/24 23:00 Ondansetron Inj 4 Mg/2 Ml Vial IV PUSH Q4H PRN Nausea Rosuvastatin Calcium 20 mg 11/29/24 21:00 12/01/24 20:26 Rosuvastatin 20 Mg Tablet PO 20 mg HS PRUDENCIO Administration Vancomycin HCl 125 mg 11/30/24 12:00 12/02/24 12:46 Vancomycin Hcl 125 Mg Oral Capsule PO 12/10/24 11:59 125 mg Q6HR PRUDENCIO Administration Radiology Results: ITS Impressions Abdomen/Pelvis CT 11/28/24 21:14 IMPRESSION: 1. No evidence of appendicitis, diverticulitis or intestinal obstruction. 2. Thickened wall of the rectosigmoid area with surrounding fat stranding suggestive of proctitis with possible inflammatory bowel disease. Clinical correlation advised. 3. Thickened wall of the gallbladder suggestive of cystitis. Clinical correlation advised. ADDENDUM: 11/28/24 9204 Thickened wall of the urinary bladder suggestive of cystitis. Clinical correlation advised. The gallbladder is normal. Labs Labs: Laboratory Results - last 24 hr 12/02/24 04:59 WBC 7.2 RBC 3.98 L Hgb 12.4 L Hct 38.4 L MCV 96.5 MCH 31.2 MCHC 32.3 RDW 15.6 H Plt Count 141 L MPV 11.1 H Immature Gran % (Auto) 0.3 Neut % (Auto) 61.6 Lymph % (Auto) 21.3 [place] % (Auto) 11.2 H Eos % (Auto) 4.8 H Baso % (Auto) 0.8 Lymph # (Auto) 1.54 [place] # (Auto) 0.8 H Eos # (Auto) 0.4 H Baso # (Auto) 0.1 Abs Immat Gran (auto) 0.02 Absolute Neuts (auto) 4.5 Absolute Nucleated RBC 0.000 Nucleated RBC % 0.0 % Immature Plt Fraction 5.1 Sodium 138 Potassium 3.8 Chloride 109 H Carbon Dioxide 23 Anion Gap 6 BUN 17 Creatinine 0.71 Estim Creat Clear Calc 58 Estimated GFR > 60 Glucose 84 Calcium 8.9 Magnesium 1.8
[2024-12-02 13:38] VITALS: BP 159/66; PULSE 66; RESP 18; TEMP 36.2; O2SAT 100
[2024-12-02] MEDS: CHOLESTYRAMINE (W/ SUGAR) 4 GM POWD.PACK PO (18:12)
[2024-12-02] MEDS: ROSUVASTATIN 20 MG TABLET PO (20:21)
[2024-12-02 20:56] VITALS: BP 142/62; PULSE 70; RESP 18; TEMP 36.7; O2SAT 94
[2024-12-02 21:28] VITALS: PULSE 73; RESP 20; O2SAT 95
[2024-12-03] MEDS: LACTATED RINGERS 1,000 ML 75 ML IV CONT (01:32)
[2024-12-03] MEDS: VANCOMYCIN HCL 125 MG ORAL CAPSULE PO ×4 (05:11→23:55)
[2024-12-03 05:21] VITALS: BP 165/73; PULSE 79; RESP 16; TEMP 37.1; O2SAT 94
[2024-12-03 05:31] LABS: Basophils Absolute Auto 0.1 K/mm3 (0.0-0.1); Basophils Percent Auto 1.1 % (0.2-1.2); Eosinophils Absolute Auto 0.3 K/mm3 (0-0.3); Eosinophils Percent Auto 4.5 % (0-4.4); Hematocrit 41.1 % (42.0-52.0); Hemoglobin 12.8 g/dL (14.0-18.0); Immature Granulocyte Absolute 0.03 K/mm3 (0.00-0.031); Immature Granulocyte Percent A 0.4 % (0-0.5); Immature Platelet Fraction Pct 12.4 % (0.9-11.2); Lymphocytes Absolute Auto 1.39 K/mm3 (0.9-3.2); Lymphocytes Percent Auto 19.5 % (18.3-44.2); Mean Corpuscular HGB Conc 31.1 g/dl (32-36); Mean Corpuscular Volume 99.5 fl (80-100); Monocytes Absolute Auto 0.8 K/mm3 (0.1-0.6); Monocytes Percent Auto 10.5 % (2.6-8.5); Neutrophils Absolute Auto 4.6 K/mm3 (1.3-6.7); Platelet Count Result 100 k/mm3 (150-375); Red Blood Count 4.13 M/mm3 (4.6-6.20); Red Cell Distribution Width 15.7 % (11.5-14.5); White Blood Count 7.1 K/mm3 (4.5-10.0)
[2024-12-03 07:38] LABS: Alanine Aminotransferase 24 U/L (6-50); Albumin Level 3.1 g/dL (3.5-5.1); Alkaline Phosphatase 99 U/L (38-126); Anion Gap 2 mmol/L (4-12); Aspartate Amino Transferase 33 U/L (17-59); Bilirubin,Total 1.3 mg/dL (0.2-1.3); Blood Urea Nitrogen 14 mg/dL (9-20); Calcium 9.3 mg/dL (8.4-10.2); Carbon Dioxide 27 mmol/L (22-30); Chloride 108 mmol/L (98-107); Estimated CRCL calculation 56 ml/min; Estimated Glomerular Filt Rate > 60; Glucose 92 mg/dL (65-110); Magnesium 1.8 mg/dL (1.6-2.3); Potassium 4.4 mmol/L (3.4-5.0); Sodium 137 mmol/L (137-145)
[2024-12-03 08:00] VITALS: O2SAT 95
[2024-12-03] MEDS: ASPIRIN 325 MG TABLET PO (08:26)
[2024-12-03] MEDS: lisinopriL 20 MG TABLET PO (08:26)
[2024-12-03] MEDS: OPTI-GEN TAB 1 TABLET PO ×2 (08:26→17:24)
[2024-12-03] MEDS: CHOLESTYRAMINE (W/ SUGAR) 4 GM POWD.PACK PO ×2 (10:41→18:15)
[2024-12-03 14:00] VITALS: BP 135/55; PULSE 66; RESP 16; TEMP 36.6; O2SAT 97
--- NOTE | 2024-12-03 17:26 | PM.IMPN ---
Progress Note: A&P Assessment and Plan (1) C. difficile colitis: Code(s): A04.72 - Enterocolitis due to Clostridium difficile, not specified as recurrent Status: Acute (2) Hyperlipidemia: Code(s): E78.5 - Hyperlipidemia, unspecified Status: Acute (3) Atherosclerosis of both carotid arteries: Code(s): I65.23 - Occlusion and stenosis of bilateral carotid arteries Status: Acute (4) Coronary artery disease: Code(s): I25.10 - Atherosclerotic heart disease of [place] coronary artery without angina pectoris Status: Acute (5) Nonrheumatic mitral valve regurgitation: Code(s): I34.0 - Nonrheumatic mitral (valve) insufficiency Status: Acute (6) Hypertension: Code(s): I10 - Essential (primary) hypertension Status: Acute (7) Primary generalized (osteo)arthritis: Code(s): M15.0 - Primary generalized (osteo)arthritis Status: Acute Plan This is an 89-year-old male who presents to the ED with diarrhea for past 1 week. Reports multiple episodes every day. Had poor p.o. intake. Tried Imodium. No rectal bleeding or melena. Had some abdominal pain which has now resolved. No nausea vomiting. No fever. He was recently in a rehab facility after hospitalization for hip fracture in July 2024. Vitals were stable. Laboratory workup revealed WBC of 12.2 hemoglobin of 14.7 platelet of 214. Chem panel was unremarkable except for mildly elevated bilirubin 2.6. Urinalysis showed urine WBC of 0 to 5 urine RBC of 6-10 with more than [address] abdomen pelvis showed no evidence of appendicitis diverticulitis or intestinal obstruction. Thickened wall of the rectosigmoid area with surrounding fat stranding suggestive of proctitis with possible inflammatory bowel disease. Clinical correlation advised. Thickened wall of the gallbladder suggestive of cystitis. C diff test came back positive. Received a dose of fidaxomicin will continue fidaxomicin for 10 days. Due to cost will switch to vancomycin oral. Continue to monitor bowel movement. added cholestyramine Dehydration IV fluid. will stop ivf Recent hip fracture July 2024 status post or if left periprosthetic femur Atrial fibrillation diagnosed July 2024. No anticoagulation due to falls. Coronary artery disease status post RCA stenting 2003. Bilateral carotid artery stenosis Recurrent falls Hypertension Hyperlipidemia Disposition PT OT to see Code status do not resuscitate Subjective Date/time seen: 12/03/24 17:26 Interval history: diarrhea slowed down, no nausea, vomiting. feels good Review of Systems Review of Systems: All systems reviewed & are unremarkable except as noted in HPI and below Exam Narrative: GENERAL: Elderly and frail, not in any acute physical distress HEAD: [Normocephalic, atraumatic.] EYES: [PERRLA and EOMI.] ENT: Nares clear, no rhinorrhea or epistaxis. Mucous membranes moist. NECK: Supple. CHEST: [Clear to auscultation. No respiratory distress.] HEART: [Regular rate and rhythm]. No murmur heard. [Normal peripheral pulses.] ABDOMEN: [Soft, nondistended], nontender, [No rigidity or guarding] EXTREMITIES: Normal range of motion. [No edema.] SKIN: Warm, dry, no rash. NEURO: [No focal deficits]. Alert and oriented [x3.] PSYCH: [Normal mood and affect.] Objective Data Vital Signs Vital Signs: Vital Signs - 24 hr 12/02/24 20:00 12/02/24 20:56 12/02/24 21:28 Temperature 98.1 F Pulse Rate 70 73 Respiratory Rate 18 20 Blood Pressure 142/62 H Pulse Oximetry 94 95 Oxygen Delivery Room Air Room Air Fraction of Inspired Oxygen 21 12/03/24 05:21 12/03/24 08:00 12/03/24 14:00 Temperature 98.7 F 97.9 F Pulse Rate 79 66 Respiratory Rate 16 16 Blood Pressure 165/73 H 135/55 L Pulse Oximetry 94 95 97 Oxygen Delivery Room Air Fraction of Inspired Oxygen Intake/Output Intake/Output: Intake & Output 11/30/24 12/01/24 12/02/24 12/03/24 23:59 23:59 23:59 23:59 Intake Total 3935.0 2670 3436.2 1860 Output Total 1500 350 400 Balance 3935.0 1170 3086.2 1460 Meds/Results Medications: Active Medications Generic Name Dose Route Start Last Admin Trade Name Freq PRN Reason Stop Dose Admin Acetaminophen 650 mg 11/28/24 23:00 Acetaminophen 325 Mg Tablet PO Q4H PRN Mild Pain (1-3) or Fever Aspirin 325 mg 11/29/24 09:00 12/03/24 08:26 Aspirin 325 Mg Tablet PO 325 mg DAILY PRUDENCIO Administration Cholestyramine Resin 4 gm 12/02/24 18:00 12/03/24 10:41 Cholestyramine (W/ Sugar) 4 Gm Powd.Pack PO 4 gm BID@1000,1800 PRUDENCIO Administration Lisinopril 20 mg 11/29/24 09:00 12/03/24 08:26 Lisinopril 20 Mg Tablet PO 20 mg DAILY PRUDENCIO Administration Morphine Sulfate 2 mg 11/28/24 23:00 Morphine Sulfate (*Crx) 2 Mg/Ml Inj IV PUSH Q2H PRN Pain Rated 7-10 Multivitamins/Minerals 1 tablet 11/29/24 09:00 12/03/24 17:24 Opti-Gen Tab PO 1 tablet BID PRUDENCIO Administration Ondansetron HCl 4 mg 11/28/24 23:00 Ondansetron Inj 4 Mg/2 Ml Vial IV PUSH Q4H PRN Nausea Rosuvastatin Calcium 20 mg 11/29/24 21:00 12/02/24 20:21 Rosuvastatin 20 Mg Tablet PO 20 mg HS PRUDENCIO Administration Vancomycin HCl 125 mg 11/30/24 12:00 12/03/24 17:24 Vancomycin Hcl 125 Mg Oral Capsule PO 12/10/24 11:59 125 mg Q6HR PRUDENCIO Administration Radiology Results: ITS Impressions Abdomen/Pelvis CT 11/28/24 21:14 IMPRESSION: 1. No evidence of appendicitis, diverticulitis or intestinal obstruction. 2. Thickened wall of the rectosigmoid area with surrounding fat stranding suggestive of proctitis with possible inflammatory bowel disease. Clinical correlation advised. 3. Thickened wall of the gallbladder suggestive of cystitis. Clinical correlation advised. ADDENDUM: 11/28/24 2232 Thickened wall of the urinary bladder suggestive of cystitis. Clinical correlation advised. The gallbladder is normal. Labs Labs: Laboratory Results - last 24 hr 12/03/24 12/03/24 05:10 07:13 WBC 7.1 RBC 4.13 L Hgb 12.8 L Hct 41.1 L MCV 99.5 MCH 31.0 MCHC 31.1 L RDW 15.7 H Plt Count 100 L MPV 11.0 H Immature Gran % (Auto) 0.4 Neut % (Auto) 64.0 Lymph % (Auto) 19.5 [place] % (Auto) 10.5 H Eos % (Auto) 4.5 H Baso % (Auto) 1.1 Lymph # (Auto) 1.39 [place] # (Auto) 0.8 H Eos # (Auto) 0.3 Baso # (Auto) 0.1 Abs Immat Gran (auto) 0.03 Absolute Neuts (auto) 4.6 Absolute Nucleated RBC 0.000 Nucleated RBC % 0.0 % Immature Plt Fraction 12.4 H Sodium 137 Potassium 4.4 Chloride 108 H Carbon Dioxide 27 Anion Gap 2 L BUN 14 Creatinine 0.73 Estim Creat Clear Calc 56 Estimated GFR > 60 Glucose 92 Calcium 9.3 Magnesium 1.8 Total Bilirubin 1.3 AST 33 ALT 24 Alkaline Phosphatase 99 Total Protein 6.0 L Albumin 3.1 L
[2024-12-03 21:03] VITALS: PULSE 65; RESP 20; O2SAT 92
[2024-12-03] MEDS: ROSUVASTATIN 20 MG TABLET PO (21:11)
[2024-12-03 22:00] VITALS: BP 162/63; PULSE 67; RESP 18; TEMP 36.6; O2SAT 96
[2024-12-04 05:27] LABS: Basophils Absolute Auto 0.1 K/mm3 (0.0-0.1); Basophils Percent Auto 0.9 % (0.2-1.2); Eosinophils Absolute Auto 0.4 K/mm3 (0-0.3); Eosinophils Percent Auto 4.4 % (0-4.4); Hematocrit 40.3 % (42.0-52.0); Hemoglobin 12.8 g/dL (14.0-18.0); Immature Granulocyte Absolute 0.02 K/mm3 (0.00-0.031); Immature Granulocyte Percent A 0.2 % (0-0.5); Immature Platelet Fraction Pct 9.8 % (0.9-11.2); Lymphocytes Absolute Auto 1.43 K/mm3 (0.9-3.2); Lymphocytes Percent Auto 17.5 % (18.3-44.2); Mean Corpuscular HGB Conc 31.8 g/dl (32-36); Mean Corpuscular Hemoglobin 31.4 pg (26-34); Mean Platelet Volume 11.6 fl (7.4-10.4); Monocytes Absolute Auto 0.9 K/mm3 (0.1-0.6); Monocytes Percent Auto 10.6 % (2.6-8.5); Neutrophils Absolute Auto 5.4 K/mm3 (1.3-6.7); Neutrophils Percent Auto 66.4 % (45.5-73.1); Platelet Count Result 113 k/mm3 (150-375); Red Blood Count 4.07 M/mm3 (4.6-6.20); Red Cell Distribution Width 15.9 % (11.5-14.5); White Blood Count 8.2 K/mm3 (4.5-10.0)
[2024-12-04] MEDS: VANCOMYCIN HCL 125 MG ORAL CAPSULE PO ×2 (05:30→11:22)
[2024-12-04 05:43] LABS: Alanine Aminotransferase 21 U/L (6-50); Albumin Level 3.2 g/dL (3.5-5.1); Alkaline Phosphatase 96 U/L (38-126); Anion Gap 8 mmol/L (4-12); Aspartate Amino Transferase 26 U/L (17-59); Bilirubin,Total 0.8 mg/dL (0.2-1.3); Blood Urea Nitrogen 13 mg/dL (9-20); Carbon Dioxide 21 mmol/L (22-30); Chloride 107 mmol/L (98-107); Estimated CRCL calculation 58 ml/min; Estimated Glomerular Filt Rate > 60; Glucose 99 mg/dL (65-110); Magnesium 1.8 mg/dL (1.6-2.3); Potassium 4.1 mmol/L (3.4-5.0); Sodium 136 mmol/L (137-145)
[2024-12-04 06:00] VITALS: BP 153/85; PULSE 79; RESP 18; TEMP 36.4; O2SAT 90
[2024-12-04] MEDS: OPTI-GEN TAB 1 TABLET PO (09:23)
[2024-12-04] MEDS: ASPIRIN 325 MG TABLET PO (09:23)
[2024-12-04] MEDS: lisinopriL 20 MG TABLET PO (09:23)
[2024-12-04 09:25] VITALS: RESP 18; O2SAT 93
[2024-12-04] MEDS: CHOLESTYRAMINE (W/ SUGAR) 4 GM POWD.PACK PO (10:27)
--- NOTE | 2024-12-04 12:44 | P.DS_ITS ---
DS: Admitting Diagnosis Discharge Date 12/04/2024 Admitting Diagnosis Diarrhea DS: Discharge Diagnosis Discharge Diagnosis (1) C. difficile colitis: Code(s): A04.72 - Enterocolitis due to Clostridium difficile, not specified as recurrent Status: Acute (2) Hyperlipidemia: Qualifiers: Hyperlipidemia type: mixed hyperlipidemia Qualified Code(s): E78.2 - Mixed hyperlipidemia Code(s): E78.5 - Hyperlipidemia, unspecified Status: Acute (3) Atherosclerosis of both carotid arteries: Code(s): I65.23 - Occlusion and stenosis of bilateral carotid arteries Status: Acute (4) Coronary artery disease: Qualifiers: Coronary Disease-Associated Artery/Lesion type: [place] artery [place] vs. transplanted heart: [place] heart Associated angina: without angina Qualified Code(s): I25.10 - Atherosclerotic heart disease of [place] coronary artery without angina pectoris Code(s): I25.10 - Atherosclerotic heart disease of [place] coronary artery without angina pectoris Status: Acute (5) Nonrheumatic mitral valve regurgitation: Code(s): I34.0 - Nonrheumatic mitral (valve) insufficiency Status: Acute (6) Hypertension: Qualifiers: Hypertension type: primary hypertension Qualified Code(s): I10 - Essential (primary) hypertension Code(s): I10 - Essential (primary) hypertension Status: Acute (7) Primary generalized (osteo)arthritis: Code(s): M15.0 - Primary generalized (osteo)arthritis Status: Acute DS: Summary Hospital Course Hospital Course: This is an 89-year-old male who presents to the ED with diarrhea for past 1 week. Reports multiple episodes every day. Had poor p.o. intake. Tried Imodium. No rectal bleeding or melena. Had some abdominal pain which has now resolved. No nausea vomiting. No fever. He was recently in a rehab facility after hospitalization for hip fracture in July 2024. Vitals were stable. Laboratory workup revealed WBC of 12.2 hemoglobin of 14.7 platelet of 214. Chem panel was unremarkable except for mildly elevated bilirubin 2.6. Urinalysis showed urine WBC of 0 to 5 urine RBC of 6-10 with more than [address] abdomen pelvis showed no evidence of appendicitis diverticulitis or intestinal obstruction. Thickened wall of the rectosigmoid area with surrounding fat stranding suggestive of proctitis with possible inflammatory bowel disease. Clinical correlation advised. Thickened wall of the gallbladder suggestive of cystitis. C diff test came back positive. Received a dose of fidaxomicin will continue fidaxomicin for 10 days. Due to cost will switch to vancomycin oral. Continue to monitor bowel movement. added cholestyramine. Now getting softer Dehydration IV fluid. will stop ivf Recent hip fracture July 2024 status post orif left periprosthetic femur Atrial fibrillation diagnosed July 2024. No anticoagulation due to falls. Coronary artery disease status post RCA stenting 2003. Bilateral carotid artery stenosis Recurrent falls Hypertension Hyperlipidemia Disposition PT OT to see Code status do not resuscitate Time Spent with Patient Time attestation: Total time spent providing and/or coordinating discharge services: Exam Narrative: GENERAL: Elderly and frail, not in any acute physical distress HEAD: [Normocephalic, atraumatic.] EYES: [PERRLA and EOMI.] ENT: Nares clear, no rhinorrhea or epistaxis. Mucous membranes moist. NECK: Supple. CHEST: [Clear to auscultation. No respiratory distress.] HEART: [Regular rate and rhythm]. No murmur heard. [Normal peripheral pulses.] ABDOMEN: [Soft, nondistended], nontender, [No rigidity or guarding] EXTREMITIES: Normal range of motion. [No edema.] SKIN: Warm, dry, no rash. NEURO: [No focal deficits]. Alert and oriented [x3.] PSYCH: [Normal mood and affect.] DS: Data Data Completed and Pending Labs on day of discharge: Labs from last 24 hours 12/04/24 04:59 WBC 8.2 RBC 4.07 L Hgb 12.8 L Hct 40.3 L MCV 99.0 MCH 31.4 MCHC 31.8 L RDW 15.9 H Plt Count 113 L MPV 11.6 H Immature Gran % (Auto) 0.2 Neut % (Auto) 66.4 Lymph % (Auto) 17.5 L [place] % (Auto) 10.6 H Eos % (Auto) 4.4 Baso % (Auto) 0.9 Lymph # (Auto) 1.43 [place] # (Auto) 0.9 H Eos # (Auto) 0.4 H Baso # (Auto) 0.1 Abs Immat Gran (auto) 0.02 Absolute Neuts (auto) 5.4 Absolute Nucleated RBC 0.000 Nucleated RBC % 0.0 % Immature Plt Fraction 9.8 Sodium 136 L Potassium 4.1 Chloride 107 Carbon Dioxide 21 L Anion Gap 8 BUN 13 Creatinine 0.70 Estim Creat Clear Calc 58 Estimated GFR > 60 Glucose 99 Calcium 9.0 Magnesium 1.8 Total Bilirubin 0.8 AST 26 ALT 21 Alkaline Phosphatase 96 Total Protein 6.0 L Albumin 3.2 L Imaging Radiologist's impression: ITS Impressions Abdomen/Pelvis CT 11/28/24 21:14 IMPRESSION: 1. No evidence of appendicitis, diverticulitis or intestinal obstruction. 2. Thickened wall of the rectosigmoid area with surrounding fat stranding suggestive of proctitis with possible inflammatory bowel disease. Clinical correlation advised. 3. Thickened wall of the gallbladder suggestive of cystitis. Clinical correlation advised. ADDENDUM: 11/28/242154 Thickened wall of the urinary bladder suggestive of cystitis. Clinical correlation advised. The gallbladder is normal. Discharge Plan Discharge Attending physician on discharge: Dav Pryor Discharging Clinician: Dav Pryor Anticipated Discharge Date/Time: 12/01/24 16:58 Patient Disposition: SNF Activity: as tolerated Diet: regular Discharge Instructions: Per Care Coordination Patient is current with [facility], please resume at discharge. RN please fax completed discharge instructions to [phone] Patient Instructions: Antibiotic Form Patient Language: [place] Stand Alone Forms: General Discharge Information, Care Home Discharge Follow-up/Referrals: Dave Tinajero MD [Primary Care Provider] - 1 Week Discharge Medications: New vancomycin 125 mg Capsule 125 mg PO Q6HR Qty: 21 0RF cholestyramine (with sugar) 4 gram Powder In Packet 1 ea PO BID@1000,1800 Qty: 30 0RF Continued PreserVision AREDS-2 250-90-40-1 mg capsule 1 tablet PO BID aspirin 325 mg Tablet 325 mg PO DAILY lisinopril 20 mg tablet 20 mg PO DAILY Qty: 90 1RF rosuvastatin 20 mg tablet 20 mg PO HS Qty: 90 1RF Date of admission: 11/29/24 07:45 Primary Care Provider: Dave Tinajero Admitting Provider: Marquita Barnes Attending physician on admission: Marquita Barnes Condition: Stable
[2024-12-04 14:00] VITALS: BP 137/58; PULSE 68; RESP 16; TEMP 36.4; O2SAT 98
== END 2024-12-04 15:30 | DRG 373 ==
LOC: ANHED 20:20 → ANH3MEDSUR 23:38 → ANH2MED 23:41
PROVIDERS: Physician Assistant; Admitting Provider Internal Medicine; Emergency Provider Student in an Organized Health Care Education/Training Program; PCP Family Medicine; Visit Provider Internal Medicine
DX: A04.72 Enterocolitis due to Clostridium difficile, not specified as recurrent (principal); E86.0 Dehydration; E78.2 Mixed hyperlipidemia; I65.23 Occlusion and stenosis of bilateral carotid arteries; I34.0 Nonrheumatic mitral (valve) insufficiency; I48.91 Unspecified atrial fibrillation; I25.10 Atherosclerotic heart disease of native coronary artery without angina pectoris; I25.2 Old myocardial infarction; I10 Essential (primary) hypertension; M15.0 Primary generalized (osteo)arthritis; R29.6 Repeated falls; Z95.5 Presence of coronary angioplasty implant and graft; Z96.643 Presence of artificial hip joint, bilateral; Z85.828 Personal history of other malignant neoplasm of skin; Z87.891 Personal history of nicotine dependence; Z79.82 Long term (current) use of aspirin; Z66 Do not resuscitate
CPT/HCPCS: 36415; 74177; 80048; 80053; 81001; 83605; 83735; 85025; 85055; 87045; 87427; 87449; 87493; 96361; 96374; 96375; 97110; 97161; 97165; 97530; 97535; 99285; A9270; G0378; J7120; Q9967